=== PATIENT | female | born 1950 | race African-American/Black ===

== ENCOUNTER 2016-10-17 11:26 | Inpatient (IN) ==
[2016-10-17 11:49] LABS: BE 1.5 mmoll (-3.0-3.0); DRAW SITE R BRACHIAL; METHB 1.7 % (0.0-1.5); O2(CT) 5.7 mL/dL (15.0-23.0); SAMPLE BLOOD; SAO2 37.3 % (95.0-100.0); THB 11.2 g/dL (11.5-17.4)
[2016-10-17 11:54] LABS: MODALITY CANNULA
[2016-10-17 11:55] LABS: ALLEN TEST NO; BLOOD TYPE VENOUS; PCO2(98.6) 59 mmHg (35-45)
[2016-10-17 11:56] LABS: PO2(98.6) 24 mmHg (60-100)
[2016-10-17 11:57] LABS: MANUAL DIFF NEEDED? NO
[2016-10-17 12:00] LABS: BASO% 0.4 % (0.0-0.8); EOS# 0.29 X1000 (0.0-0.7); EOS% 2.1 % (0.0-10.0); HEMATOCRIT 34.7 % (37.0-47.0); HEMOGLOBIN 10.5 g/dL (12.0-16.0); IMM GRAN# 0.05 X1000 (0.0-0.04); IMM GRAN% 0.4 % (0.0-0.5); LYMPH# 2.44 X1000 (1.2-3.4); MCH 28.1 PG (27-31); MCHC 30.3 g/dL (33-37); MCV 92.8 FL (81-99); MONO# 1.37 X1000 (0.11-0.59); MONO% 10.1 % (1.7-9.3); MPV 10.5 FL (7.4-10.4); PLT 307 X1000 (130-400); RBC 3.74 XMIL (4.2-5.4)
[2016-10-17 12:25] LABS: ALBUMIN 3.2 g/dL (3.5-5.0); CALCIUM 9.1 mg/dL (8.8-10.2); POTASSIUM 4.3 mmol/L (3.5-5.1); TOTAL BILIRUBIN 0.5 mg/dL (0.20-1.00); TOTAL PROTEIN 7.1 g/dL (6.3-8.3)
[2016-10-17 12:25] LABS: URINE SOURCE CATH
--- NOTE | 2016-10-17 12:31 | Diag Imaging Result Document ---
PROCEDURE NAME: CHEST-PORTABLE - 10/17/2016 CHEST, SINGLE VIEW: INDICATION: Altered mental status. COMPARISON: 10/09/2016. FINDINGS: There has been a suboptimal inspiratory result with diminished lung volumes. There is stable scarring or platelike atelectasis within the mid lung zones. There is stable mild vascular congestion and evidence of previous granulomatous infection. Cannot exclude retrocardiac infiltrate due to large body habitus. IMPRESSION: Stable chest with cardiomegaly, vascular congestion, and platelike atelectasis versus scarring.
[2016-10-17 12:32] LABS: INR 1.39 (0.86-1.15); PROTIME 17.3 Seconds (12.1-15.5)
[2016-10-17 12:33] LABS: PTT PL 46.5 Seconds (22.6-43.9)
[2016-10-17 12:35] LABS: BILIRUBIN URINE 2+ (NEGATIVE); BLOOD URINE NEGATIVE (NEGATIVE); CLARITY CLEAR (CLEAR); COLOR AMBER; GLUCOSE URINE NEGATIVE (NEGATIVE); LEUKOCYTES URINE TRACE (NEGATIVE); NITRITE URINE NEGATIVE (NEGATIVE); PROTEIN URINE 2+(100 mg/dL) mg/dL (NEGATIVE); UROBILINOGEN URINE NORMAL
--- NOTE | 2016-10-17 12:35 | PROVIDER DOCUMENTATION ---
HPI-General Adult - General Chief Complaint: Low Blood Sugar Stated Complaint: AMS Time Seen by Provider: 10/17/16 12:15 Source: patient, family Allergies/Adverse Reactions: Patient Allergies Allergy/AdvReac Type Severity Reaction Status Date / Time No Known Allergies Allergy Verified 10/17/16 11:34 Home Medications: Allopurinol 300 mg PO DAILY 10/07/16 Benzonatate 200 mg PO TID PRN PRN 10/07/16 Bisoprolol Fumarate 10 mg PO DAILY 10/07/16 Carisoprodol 350 mg PO Q12H PRN PRN 10/07/16 Hydralazine [Apresoline] 25 mg PO TID 10/07/16 Insulin Glargine,Hum.rec.anlog [Lantus Solostar] 40 unit SQ HS 10/07/16 Losartan/Hydrochlorothiazide [Losartan-Hctz 100-12.5 mg Tab] 1 each PO DAILY Metformin [Glucophage] 500 mg PO BID CC 10/07/16 - History of Present Illness -Gen Adult Nature of Presenting Problems: Pt is 66 y/o F presents to the ED with altered mental status. Pt states she feels like she is fine. Pt's family member states she is not acting right. Pt states she is in no pain. Location of Pain/Injury: reports: none Pain Radiation: reports: no radiation Quality of Pain: reports: none Onset/Duration: reports: unsure Timing: reports: still present, intermittent Context/Activities at Onset: reports: light activity Modifying Factors: improves with: nothing Associated Symptoms: reports: denies symptoms Similar Symptoms Previously?: No Recently seen or treated by another doctor?: No - Diabetes Related Context Context: reports: low blood sugar, change in mental status - Sickle Cell Pain Related Context Sickle Cell Pain Location: reports: none Is this pain typical of prior episodes of crisis?: No Review of Systems - Adult - REVIEW OF SYSTEMS - ADULT Constitutional: denies: chills, fever Eyes: denies: blurred vision, double vision Ears, Nose, Mouth & Throat: denies: ear pain, nose pain, throat pain Cardiovascular: denies: chest pain, heart murmur, irregular heart rate Respiratory: denies: cough, shortness of breath, wheezing Gastrointestinal: reports: poor appetite. denies: abdominal pain, diarrhea, nausea, vomiting Genitourinary: denies: dysuria, hematuria Musculoskeletal: denies: bone pain, joint pain, neck pain Integumentary: denies: hives, itching Neurological: denies: dizziness/vertigo, headache/migraines Psychiatric: reports: no symptoms reported Endocrine: reports: no symptoms reported Hematologic/Lymphatic: reports: no symptoms reported Allergic/Immunologic: reports: no symptoms reported All Other Systems: Reviewed and Negative Past History - Adult - PAST MEDICAL HISTORY-ADULT Review of Records: reports: Nursing Assessment Review, Medications Reviewed, Social history reviewed & non-contributory. Major Childhood Illnesses: reports: denies history Cardiovascular: reports: HTN, hyperlipidemia Respiratory: reports: COPD, sleep apnea Gastrointestinal: reports: denies history Obstetrical/Gynecological: reports: denies history Genitourinary: reports: denies history Musculoskeletal: reports: denies history Neurological: reports: denies history Endocrine/Immune: reports: Diabetes Other Conditions: reports: cataract/glaucoma (glaucoma), skin disorder (skin disease) - PRIOR SURGERIES/PROCEDURES Surgical/Procedure History: reports: other (eye sugery) - IMMUNIZATION STATUS Childhood Immunizations: See Nurse Assessment Flu Vaccine: See Nurse Assessment - FAMILY HISTORY Family History: reviewed, not pertinent - SOCIAL HISTORY Smoking: quit less than 1 year, cigarettes Provider spent 3-5 mins advising pt. on dangers of tobacco.: Discussed manners to quit use, and f/u contacts for add'l counseling. Substance Use: denies Living Situation: family Physical Exam-General - PHYSICAL EXAM-ADULT Initial Vital Signs Reviewed: Yes - CONSTITUTIONAL General Appearance: alert, no apparent distress, slow to respond - EYES Eyes: PERRL/EOMI, pink conjunctivae - HEAD, EARS, NOSE, MOUTH & THROAT HENMT: normocephalic/atraumatic, moist mucous membranes, normal ENT inspection - NECK Neck: non-tender, full range of motion, supple, normal inspection - RESPIRATORY Respiratory: chest non-tender, lungs clear, accessory muscle use, increased rate - CARDIOVASCULAR Cardiovascular: normal peripheral pulses, regular rate, rhythm, no edema - GASTROINTESTINAL (ABDOMEN) Abdominal Exam: normal bowel sounds, non tender, soft - LYMPHATIC Lymphatic: no adenopathy - MUSCULOSKELETAL Back Exam: normal inspection, no CVA tenderness, no vertebral tenderness Extremity: normal range of motion, non-tender, normal gait - SKIN Integumentary: normal color, normal turgor, warm/dry - NEUROLOGIC Neurologic: passenger flagman II-XII nml as tested, grossly normal, no motor/sensory deficits - PSYCHIATRIC Psych/Mental Status: normal mood/affect, normal thought content, normal thought process, oriented x 3 Progress - PLAN OF CARE/RESULTS Progress/Plan/Lab Results: Laboratory Tests 10/17/16 10/17/16 10/17/16 11:37 11:55 11:55 WBC RBC Hgb Hct MCV MCH MCHC RDW Std Deviation Plt Count MPV Immature Gran % (Auto) Neut % (Auto) Lymph % (Auto) [place] % (Auto) Eos % (Auto) Baso % (Auto) Immature Gran # (Auto) Neut # Lymph # [place] # Eos # Baso # PT INR APTT (Factor Assay) Specimen Type VENOUS Sample Site R BRACHIAL pH 7.30 L pCO2 59 H* pO2 24 L* HCO3 24.7 Base Excess 1.5 Oxyhemoglobin 35.9 L* ABG O2 Sat (Calculated) 5.7 L ABG O2 Saturation 37.3 L ABG Carboxyhemoglobin 2.00 ABG Methemoglobin 1.7 H Eugene Test NO Total Hemoglobin 11.2 L Lactate 1.40 Blood Gas Modality CANNULA FiO2 % 28.0 Sodium 140 Potassium 4.3 Chloride 103 Carbon Dioxide 25 Anion Gap 11 BUN 30 H Creatinine 3.7 H Estimated GFR/1.73 m2 12 BUN/Creatinine Ratio 8 Glucose 76 Calculated Osmolality 284 Calcium 9.1 Total Bilirubin 0.50 AST 28 ALT 11 Alkaline Phosphatase 77 Troponin T Total Protein 7.1 Albumin 3.2 L Globulin 4.0 Albumin/Globulin Ratio 1.0 Plasma Lactate 1.3 Urine Source Urine Color Urine Clarity Urine pH Ur Specific Carrier Urine Protein Urine Ketones Urine Blood Urine Nitrite Urine Bilirubin Urine Urobilinogen Urine WBC Urine Glucose Plasma/Serum Ethyl Alc 10/17/16 10/17/16 10/17/16 11:55 11:55 11:55 WBC 13.57 H RBC 3.74 L Hgb 10.5 L Hct 34.7 L MCV 92.8 MCH 28.1 MCHC 30.3 L RDW Std Deviation 16.2 H Plt Count 307 MPV 10.5 H Immature Gran % (Auto) 0.4 Neut % (Auto) 69.0 Lymph % (Auto) 18.0 L [place] % (Auto) 10.1 H Eos % (Auto) 2.1 Baso % (Auto) 0.4 Immature Gran # (Auto) 0.05 H Neut # 9.36 H Lymph # 2.44 [place] # 1.37 H Eos # 0.29 Baso # 0.06 PT INR APTT (Factor Assay) Specimen Type Sample Site pH pCO2 pO2 HCO3 Base Excess Oxyhemoglobin ABG O2 Sat (Calculated) ABG O2 Saturation ABG Carboxyhemoglobin ABG Methemoglobin Eugene Test Total Hemoglobin Lactate Blood Gas Modality FiO2 % Sodium Potassium Chloride Carbon Dioxide Anion Gap BUN Creatinine Estimated GFR/1.73 m2 BUN/Creatinine Ratio Glucose Calculated Osmolality Calcium Total Bilirubin AST ALT Alkaline Phosphatase Troponin T 0.086 Total Protein Albumin Globulin Albumin/Globulin Ratio Plasma Lactate Urine Source Urine Color Urine Clarity Urine pH Ur Specific Carrier Urine Protein Urine Ketones Urine Blood Urine Nitrite Urine Bilirubin Urine Urobilinogen Urine WBC Urine Glucose Plasma/Serum Ethyl Alc 10/17/16 10/17/16 11:55 12:02 WBC RBC Hgb Hct MCV MCH MCHC RDW Std Deviation Plt Count MPV Immature Gran % (Auto) Neut % (Auto) Lymph % (Auto) [place] % (Auto) Eos % (Auto) Baso % (Auto) Immature Gran # (Auto) Neut # Lymph # [place] # Eos # Baso # PT 17.3 H INR 1.39 H APTT (Factor Assay) 46.5 H Specimen Type Sample Site pH pCO2 pO2 HCO3 Base Excess Oxyhemoglobin ABG O2 Sat (Calculated) ABG O2 Saturation ABG Carboxyhemoglobin ABG Methemoglobin Eugene Test Total Hemoglobin Lactate Blood Gas Modality FiO2 % Sodium Potassium Chloride Carbon Dioxide Anion Gap BUN Creatinine Estimated GFR/1.73 m2 BUN/Creatinine Ratio Glucose Calculated Osmolality Calcium Total Bilirubin AST ALT Alkaline Phosphatase Troponin T Total Protein Albumin Globulin Albumin/Globulin Ratio Plasma Lactate Urine Source CATH Urine Color PAZ Urine Clarity CLEAR Urine pH 5.0 Ur Specific Carrier 1.030 Urine Protein 2+(100 mg/dL) A Urine Ketones TRACE Urine Blood NEGATIVE Urine Nitrite NEGATIVE Urine Bilirubin 2+ A Urine Urobilinogen NORMAL Urine WBC TRACE A Urine Glucose NEGATIVE Plasma/Serum Ethyl Alc Orders Category Date Time Status Cardiac Monitoring DIRECTED Care 10/17/16 11:28 Active Finger Stick Blood Sugar (ED) DIRECTED Care 10/17/16 11:28 Active Oxygen Therapy- ED Nursing DIRECTED Care 10/17/16 11:28 Active Saline Loc NOW Care 10/17/16 11:28 Active CHEST-PORTABLE [RAD] Stat Exams 10/17/16 11:28 Draft ABG [RESP] Routine Lab 10/17/16 11:37 Completed ALCOHOL BLOOD Stat Lab 10/17/16 11:55 Completed CBC WITH ELECTRONIC DIFF [HEME] Stat Lab 10/17/16 11:55 Completed COMPREHENSIVE METABOLIC PANEL [CHEM] Stat Lab 10/17/16 11:55 Completed LACTATE, PLASMA [CHEM] Stat Lab 10/17/16 11:55 Completed [address]IME WITH INR PL [COAG] Stat Lab 10/17/16 11:[address] [COAG] Stat Lab 10/17/16 11:55 Completed TROPONIN T Stat Lab 10/17/16 11:[address] W/POSS RFLX CULT [URINALYSIS] Stat Lab 10/17/16 12:02 Results URINE DRUG SCREEN [address] Stat Lab 10/17/16 12:02 Received Pulse Oximetry Stat Oth 10/17/16 11:28 Active EKG [EKG] Stat Ther 10/17/16 11:28 Ordered Vital Signs - 24 hr 10/17/16 11:27 Temperature 101.9 F H Pulse Rate 83 Respiratory 18 Rate Blood Pressure 124/47 O2 Sat by Pulse 94 L Oximetry - EKG 1 Time of EKG reading by physician:: 11:51 EKG Read and Signed by:: Jacobo Walker EKG Interpretation (*Must complete 3 of following elements*): Abnormal Rate: 84 Rhythm: normal sinus rhythm Comments: possible anterior infarct, age undetermined - XRAY 1 XRAY: Bilateral XRAY Study: Chest Impression: Abnormal (platelike atelectasis versus scarring) XRAY Interpretation: stable chest with cardiomegaly; vascular congestion; - CONSULTS/PCP/HOSPITALIST Notification #1 *Consult/PCP/Hospitalist*: Dr. Rogers Time Discussed: 12:40 (Dr. Rogers accepted admit. ) Reason/Comments: Dr. Walker consulted with Dr Rogers about admit of Pt. Consult Disposition: Admit Departure - Departure Time of Disposition Order: 12:44 DIAGNOSIS: Pneumonia Qualifiers: Pneumonia type: due to unspecified organism Laterality: unspecified laterality Lung location: unspecified part of lung Qualified Code(s): J18.9 - Pneumonia, unspecified organism Fever Qualifiers: Fever type: other Qualified Code(s): R50.81 - Fever presenting with conditions classified elsewhere Diabetes Qualifiers: Diabetes mellitus type: other specified (including MARKUS) Diabetes mellitus complication status: with unspecified complications Diabetes mellitus detention insulin use: unspecified detention insulin use status Qualified Code(s): E13.8 - Other specified diabetes mellitus with unspecified complications DIAGNOSIS: (Ruled Out): 23-polyvalent pneumococcal polysaccharide vaccine indication of diabetes in patient 6 to 64 years of age Disposition: ADMITTED INPATIENT 09 Certified Medical Emergency: Emergent Condition: Stable Additional Instructions: ED Follow Up Instructions: You have been treated by a care provider in the Emergency Department. These instructions are being provided to you so you can have an understanding of how to care for yourself upon discharge. Upon discharge from the Emergency Department, you are responsible for making arrangements for follow-up care by a physician of your choice. Take all prescribed medications as directed. Return to the Emergency Department immediately for any new or worsening symptoms. You may call the Physician Referral phone number at [phone] to obtain a list of Physicians who are taking new patients. Referrals: Jadiel Anguiano MD [Primary Care Provider] - Attestation - Scribe Verification/Attestation Scribe:: Juany Eastman Acting as Scribe for:: Jacobo Walker Scribe documention review:: This chart was documented by a scribe and accurately reflects the service the provider performed and the decisions made by the provider.
[2016-10-17 12:37] LABS: UR AMPHETAMINES QUAL NONE DETECTED (NONE DETECT); UR BARBITUATES QUAL NONE DETECTED (NONE DETECT); UR BENZODIAZEPIN QUAL NONE DETECTED (NONE DETECT); UR CANNABINOIDS QUAL NONE DETECTED (NONE DETECT); UR COCAINE QUAL NONE DETECTED (NONE DETECT); UR MDMA QUAL NONE DETECTED (NONE DETECT); UR METHADONE QUAL NONE DETECTED (NONE DETECT); UR METHAMPHETAMINE QUAL PRESUMPTIVE POSITIVE (NONE DETECT); UR OPIATES QUAL NONE DETECTED (NONE DETECT); UR OXYCODONE QUAL NONE DETECTED (NONE DETECT); UR PCP QUAL NONE DETECTED (NONE DETECT); UR TCA QUAL NONE DETECTED (NONE DETECT)
[2016-10-17] MEDS ORDERED: CLINDAMYCIN IV ONE (12:43)
[2016-10-17 12:44] LABS: URINE CULTURE PL NEEDED? YES; URINE EPITHELIAL CELLS <10 /HPF (<10)
[2016-10-17] MEDS ORDERED: TYLENOL PO ONE (12:44)
[2016-10-17] MEDS ORDERED: TESSALON PO PRN (12:47)
--- NOTE | 2016-10-17 12:51 | EKG Report ---
Test Performed on : 10/17/2016 11:51:50 AM Test Reason : AMS Blood Pressure : / mmHG Vent. Rate : 084 BPM Atrial Rate : 084 BPM P-R Int : 162 ms QRS Dur : 082 ms QT Int : 384 ms P-R-T Axes : 021 -08 047 degrees QTc Int : 453 ms Normal sinus rhythm. Possible Anterior infarct , age undetermined Abnormal ECG When compared with ECG of 08-OCT-2016 04:59, premature atrial complexes. are no longer present Unconfirmed Result
[2016-10-17] MEDS ORDERED: CLINDAMYCIN 900 MG/NS 50 ML ONE (12:53)
[2016-10-17] MEDS ORDERED: CLINDAMYCIN 900 MG/NS 50 ML IV ONE (13:00)
[2016-10-17] MEDS ORDERED: APRESOLINE PO SCH (13:00)
[2016-10-17] MEDS: NS 1,000 ML IV SCH (14:54)
[2016-10-17] MEDS: HUMALOG DOSE (PARKWAY) SUBQ SCH (20:35)
[2016-10-17] MEDS: LANTUS INSULIN (PARKWAY) SUBQ SCH (20:36)
[2016-10-18] MEDS: NS 1,000 ML IV SCH ×3 (00:03→18:45)
[2016-10-18] MEDS ORDERED: D50W SYRINGE ONE (06:12)
[2016-10-18] MEDS ORDERED: D50W SYRINGE IV ONE ×2 (06:20→13:33)
[2016-10-18] MEDS: HUMALOG DOSE (PARKWAY) SUBQ SCH ×3 (06:22→19:46)
[2016-10-18 06:46] LABS: MANUAL DIFF NEEDED? NO
[2016-10-18 06:48] LABS: BASO% 0.4 % (0.0-0.8); EOS# 0.45 X1000 (0.0-0.7); EOS% 3.3 % (0.0-10.0); HEMATOCRIT 33.9 % (37.0-47.0); HEMOGLOBIN 9.9 g/dL (12.0-16.0); IMM GRAN# 0.05 X1000 (0.0-0.04); IMM GRAN% 0.4 % (0.0-0.5); LYMPH# 1.29 X1000 (1.2-3.4); LYMPH% 9.3 % (20.5-51.1); MCH 27.6 PG (27-31); MCHC 29.2 g/dL (33-37); MCV 94.4 FL (81-99); MONO# 1.08 X1000 (0.11-0.59); MONO% 7.8 % (1.7-9.3); MPV 10.9 FL (7.4-10.4); NEUT% 78.8 % (42.2-75.2); PLT 287 X1000 (130-400); RBC 3.59 XMIL (4.2-5.4)
[2016-10-18 07:11] LABS: CALCIUM 8.5 mg/dL (8.8-10.2); POTASSIUM 4.3 mmol/L (3.5-5.1)
--- NOTE | 2016-10-18 08:22 | HISTORY AND PHYSICAL ---
PRIMARY CARE PHYSICIAN: Dr. Anguiano CHIEF COMPLAINT: Altered mental status, family member stating she just was not acting right at home. HISTORY OF PRESENTING ILLNESS: This is a 66-year-old morbidly obese female who was admitted to this facility on 10/07/2016 through 10/10/2016 for a left lower lobe pneumonia, COPD exacerbation, acute kidney injury that was resolved at that time. She presents back to the emergency room today with family stating that she "was not acting right." When she arrived to the emergency room, she had a temperature of 101.9 degrees. White blood cell count was 13.57. She had a BUN of 30 with a creatinine of 3.7. When she was discharged from the hospital on 10/10/2016, she had a creatinine of 1.3. Urinalysis showed negative nitrites, trace of white blood cells, and 1+ bacteria, and so, she was admitted to the intensive care unit for further evaluation and treatment. PAST MEDICAL HISTORY: Hypertension, COPD, diabetes type 2, sleep apnea, glaucoma, and a recent left lower lobe pneumonia. PAST SURGICAL HISTORY: A right eye surgery. FAMILY HISTORY: Noncontributory. SOCIAL HISTORY: She currently lives with family. Denies any tobacco, alcohol, or illicit drug use. ALLERGIES: She has no known drug allergies. HOME MEDICATIONS: Allopurinol 300 mg p.o. daily. Bisoprolol fumarate 10 mg p.o. daily will be held. Cleocin 300 mg p.o. t.i.d. will be held. Losartan/hydrochlorothiazide 1 p.o. daily will be held. Glucophage 500 mg p.o. b.i.d. will be held. Reglan 10 mg p.o. before meals and at bedtime will be held. LABORATORY DATA: Showed a white blood cell count of 13.57, hemoglobin at 10.5, hematocrit 34.7, platelets 307,000. PT and INR of 17.3 and 1.39. ABG showed a pH of 7.3, pCO2 of 59, PO2 of 24, bicarbonate of 24.7. Sodium 140, potassium 4.3, chloride 103, CO2 of 25, BUN of 30, creatinine 3.7, glucose of 76. Plasma lactate was 1.3. Urinalysis showed negative nitrites, trace of white blood cells, and 1+ bacteria. Urine drug screen was presumptive positive for methamphetamines, and serum alcohol showed none detected. Chest x-ray today showed a stable chest with cardiomegaly, vascular congestion, and platelike atelectasis versus scarring. EKG showed normal sinus rhythm at 84. REVIEW OF SYSTEMS: The patient had a subjective fever. Denied any chills, blurred vision, dizziness, chest pain, coughing, shortness of breath. Denied any constipation, diarrhea, or burning or hurting with urination. PHYSICAL EXAMINATION: VITAL SIGNS: Showed a temperature of 101.9 degrees, pulse 83, respirations 18, blood pressure 124/47, saturating 94% on 2 liters via nasal cannula. GENERAL: This is a 66-year-old morbidly obese female who is lying in the bed and answers questions appropriately. HEENT: Normocephalic and atraumatic. Pupils are equal, round, reactive to light. Extraocular movements are intact. Oropharynx and nares are clear. NECK: Supple. LUNGS: Clear to auscultation bilaterally with equal lung expansion and chest wall movement. HEART: With regular rate and rhythm. No murmurs, rubs, or gallops. ABDOMEN: Soft, nontender, nondistended. Bowel sounds are present x4 quadrants. EXTREMITIES: No clubbing or cyanosis. The patient was noted to have some nonpitting edema to her left lower extremity. NEUROLOGICAL: The cranial nerves 2 through 12 appear grossly intact. ASSESSMENT: 1. Leukocytosis. 2. Fever. 3. Urinary tract infection. 4. Acute kidney injury. PLAN: She was admitted to the intensive care unit at [facility]. A Weston catheter was inserted, incentive spirometry, O2 per protocol, diabetic diet. Blood cultures x2 were obtained, and the results are pending, and urine culture is pending. She received clindamycin 900 mg IV x1 in the ER. We will place her on normal saline at 100 mL an hour, continue her Levaquin 500 mg p.o. daily. We will hold the rest of her home medications at this time. We will do pattern blood sugars with sliding scale insulin as needed. Recheck CBC and BMP in the a.m. media services coordinator was consulted to obtain rehab placement for this patient at family's request. Dictated by BRODIE Bowen for Michel Rogers MD
[2016-10-18] MEDS ORDERED: ZOFRAN IV PRN (08:39)
[2016-10-18] MEDS ORDERED: PROTONIX IV SCH (08:45)
[2016-10-18] MEDS ORDERED: SODIUM CHLORIDE 0.9% INJ SCH (08:45)
[2016-10-18] MEDS ORDERED: ROCEPHIN 1 GM/NS 50 ML IV SCH (08:45)
[2016-10-18] MEDS ORDERED: VANCOMYCIN IV PER PHARMACY MISC SCH (08:45)
[2016-10-18 09:00] LABS: BE -2.4 mmoll (-3.0-3.0); BLOOD TYPE ARTERIAL; METHB 1.2 % (0.0-1.5); O2(CT) 13.5 mL/dL (15.0-23.0); PO2(98.6) 76 mmHg (60-100); SAMPLE BLOOD; SAO2 97.5 % (95.0-100.0); THB 10.2 g/dL (11.5-17.4)
[2016-10-18] MEDS ORDERED: LEVAQUIN PO SCH (09:00)
[2016-10-18] MEDS ORDERED: ZYLOPRIM PO SCH ×2 (09:00)
[2016-10-18] MEDS ORDERED: LASIX IV SCH (09:00)
[2016-10-18] MEDS ORDERED: ZEBETA PO SCH (09:00)
[2016-10-18 09:11] LABS: DRAW SITE L BRACHIAL; pH(98.6) 7.26 (7.35-7.45)
[2016-10-18 09:12] LABS: ALLEN TEST YES; MODALITY CANNULA; PCO2(98.6) 56 mmHg (35-45)
[2016-10-18] MEDS ORDERED: VANCOMYCIN 2,000 MG in NS 500 ML IV ONE (09:30)
--- NOTE | 2016-10-18 11:50 | PROGRESS NOTE ---
DATE: 10/18/2016 SUBJECTIVE: The patient is nonverbal this morning. No family in the room. Staff notes that she has had a decreased urine output over the past 12 hours and has had an increase in her respiratory distress. PHYSICAL EXAMINATION: Vital Signs: Temperature 99 degrees. Pulse 88. Respiratory 28-33. BP 95/54 to 111/57. General: Patient is in moderate respiratory distress. She is tachypneic. HEENT: Normocephalic. Neck: Supple. CV: Regular rate. Chest: Greatly decreased breath sounds bilaterally. Positive moderate respiratory distress. Positive accessory muscle usage. Abdomen: Soft, obese. Extremities: No edema. Neurologic: Unable to assess. Patient does not respond to commands. DIAGNOSTIC DATA: WBCs 13. Hemoglobin and hematocrit 9 and 33. ABG with a pH of 7.2, pCO2 of 56, and creatinine 4.0. ASSESSMENT: 1. Acute renal failure. Serum creatinine is slightly worse than yesterday. 2. Acute respiratory acidosis. 3. Acute hypercapnic respiratory failure. 4. Leukocytosis. PLAN: Will continue patient in the ICU. Will place her on BiPAP. Will consult pulmonology. Continue antibiotics. She was given Lasix already as she is positive fluid status currently. We will add vancomycin as she has recently been in the hospital.
[2016-10-18] MEDS ORDERED: OFIRMEV 1000 MG/ISOTONIC SOLN 100 ML IV PRN (14:42)
[2016-10-18 17:23] LABS: CK INDEX 0.6 (0.0-2.5); CK-MB 3.25 ng/mL (0.0-5.0)
[2016-10-18 17:46] LABS: ALLEN TEST NO; BE -4.4 mmoll (-3.0-3.0); BLOOD TYPE ARTERIAL; DRAW SITE R BRACHIAL; METHB 1.8 % (0.0-1.5); O2(CT) 14.6 mL/dL (15.0-23.0); PO2(98.6) 220 mmHg (60-100); SAMPLE BLOOD; SAO2 100.1 % (95.0-100.0); THB 10.4 g/dL (11.5-17.4)
[2016-10-18 17:47] LABS: MODALITY NRB; PCO2(98.6) 64 mmHg (35-45); pH(98.6) 7.19 (7.35-7.45)
[2016-10-18] MEDS ORDERED: ZOSYN 2.25 GM/NS 50 ML IV ONE (18:02)
[2016-10-18] MEDS ORDERED: CORDARONE ONE (18:22)
[2016-10-18] MEDS ORDERED: D5W ONE (18:22)
[2016-10-18] MEDS ORDERED: NORCURON ONE (18:33)
[2016-10-18] MEDS ORDERED: QUELICIN ONE (18:34)
[2016-10-18] MEDS ORDERED: VERSED ONE (18:34)
[2016-10-18] MEDS ORDERED: AMIDATE ONE (18:34)
[2016-10-18] MEDS ORDERED: DIPRIVAN 1% 100 ML ONE (18:35)
[2016-10-18] MEDS ORDERED: SODIUM BICARBONATE 8.4% 150 MEQ in D5W 1,000 ML IV SCH (18:45)
[2016-10-18] MEDS ORDERED: DOPAMINE 400 MG/D5W 500 ML IV SCH (18:45)
[2016-10-18] MEDS ORDERED: LEVOPHED 8 MG in D5 1/2 NS 250 ML IV SCH ×4 (19:00)
[2016-10-18] MEDS ORDERED: NS 1,000 ML IV ONE (19:00)
[2016-10-18] MEDS: DIFLUCAN 100 MG/NS 50 ML IV SCH (19:19)
[2016-10-18 19:21] LABS: BASO% 0.4 % (0.0-0.8); EOS# 0.34 X1000 (0.0-0.7); EOS% 1.7 % (0.0-10.0); HEMATOCRIT 35.1 % (37.0-47.0); HEMOGLOBIN 10.3 g/dL (12.0-16.0); IMM GRAN# 0.21 X1000 (0.0-0.04); LYMPH# 3.67 X1000 (1.2-3.4); LYMPH% 18.2 % (20.5-51.1); MANUAL DIFF NEEDED? YES; MCHC 29.3 g/dL (33-37); MCV 95.4 FL (81-99); MONO# 1.18 X1000 (0.11-0.59); MONO% 5.9 % (1.7-9.3); MPV 10.5 FL (7.4-10.4); NEUT% 72.8 % (42.2-75.2); PLT 299 X1000 (130-400); RBC 3.68 XMIL (4.2-5.4)
[2016-10-18 19:35] LABS: MAGNESIUM 1.9 mg/dL (1.5-2.7); POTASSIUM 4.8 mmol/L (3.5-5.1)
[2016-10-18] MEDS ORDERED: NEO-SYNEPHRINE 50 MG in NS 250 ML IV SCH (19:45)
[2016-10-18] MEDS ORDERED: NS 1,000 ML ONE (20:01)
[2016-10-18 20:05] LABS: BANDS 1 % (0-1); EOS 2 % (1-10); LYMPHS 18 % (21-51); MONO 6 % (1-9)
[2016-10-18 20:26] LABS: ALLEN TEST YES; BE 0.1 mmoll (-3.0-3.0); BLOOD TYPE ARTERIAL; DRAW SITE L RADIAL; MODALITY VENTILATOR; PCO2(98.6) 34 mmHg (35-45); PO2(98.6) 189 mmHg (60-100); SAMPLE BLOOD; SRATE 16 BPM; TVOL 600 mL; pH(98.6) 7.45 (7.35-7.45)
[2016-10-18] MEDS: DIPRIVAN 1% 100 ML IV SCH (21:37)
[2016-10-18] MEDS ORDERED: ATROPINE SYRINGE ONE (22:38)
[2016-10-18] MEDS ORDERED: MAGNESIUM SULFATE ONE (22:38)
[2016-10-18] MEDS ORDERED: SODIUM BICARBONATE 8.4% ONE (22:38)
[2016-10-18] MEDS ORDERED: CALCIUM CHLORIDE SYRINGE ONE (22:38)
[2016-10-18] MEDS ORDERED: EPINEPHRINE SYRINGE ONE (22:38)
[2016-10-18 23:44] LABS: URINE MICRO REVIEW NEEDED? NO; URINE SOURCE CATH
[2016-10-18 23:54] LABS: BILIRUBIN URINE NEGATIVE (NEGATIVE); BLOOD URINE LARGE (NEGATIVE); COLOR ORANGE; GLUCOSE URINE NEGATIVE (NEGATIVE); LEUKOCYTES URINE LARGE (NEGATIVE); NITRITE URINE NEGATIVE (NEGATIVE); PH URINE 5.5; SP GRAVITY URINE 1.013; TURBIDITY URINE TURBID (CLEAR); UROBILINOGEN URINE NORMAL (NORMAL)
[2016-10-19] MEDS: DIPRIVAN 1% 100 ML IV SCH ×10 (00:29→22:43)
[2016-10-19] MEDS: D5 1/2 NS 1,000 ML IV SCH ×2 (00:31→06:47)
[2016-10-19] MEDS: HUMALOG DOSE (PARKWAY) SUBQ SCH (00:31)
[2016-10-19] MEDS: LANTUS INSULIN (PARKWAY) SUBQ SCH (00:35)
[2016-10-19 00:57] LABS: UR CREAT RANDOM 146.2 mg/dL (11-20)
[2016-10-19 01:45] LABS: PROTEIN URINE 70 mg/dL (NEGATIVE)
[2016-10-19 02:07] LABS: UR EPITHELIAL CELLS <10 /HPF (<10); URINE BACTERIA 2+ /HPF; URINE CULTURE NEEDED? YES; URINE RBC TNTC /HPF (<10)
[2016-10-19] MEDS ORDERED: DIPRIVAN 1% IV PRN (02:52)
[2016-10-19 05:39] LABS: ALLEN TEST YES; BE 4.8 mmoll (-3.0-3.0); BLOOD TYPE ARTERIAL; DRAW SITE R RADIAL; METHB 1.9 % (0.0-1.5); O2(CT) 13.7 mL/dL (15.0-23.0); PCO2(98.6) 31 mmHg (35-45); PO2(98.6) 329 mmHg (60-100); SAMPLE BLOOD; SAO2 100.3 % (95.0-100.0); SRATE 16 BPM; THB 9.4 g/dL (11.5-17.4); TVOL 600 mL; pH(98.6) 7.55 (7.35-7.45)
[2016-10-19 05:40] LABS: MODALITY VENTILATOR
[2016-10-19] MEDS: NS 1,000 ML IV SCH (06:46)
[2016-10-19] MEDS ORDERED: TESSALON PO PRN (07:18)
[2016-10-19] MEDS ORDERED: ZOFRAN IV PRN (07:19)
[2016-10-19] MEDS: HUMALOG SUBQ SCH ×4 (07:42→21:00)
[2016-10-19] MEDS: DIFLUCAN 100 MG/NS 50 ML IV SCH ×2 (07:44→20:07)
[2016-10-19] MEDS ORDERED: NS 1,000 ML IV SCH (08:00)
[2016-10-19 08:01] LABS: HEMATOCRIT 29.9 % (37.0-47.0); HEMOGLOBIN 9.1 g/dL (12.0-16.0); MCH 28.3 PG (27-31); MCHC 30.4 g/dL (33-37); MCV 92.9 FL (81-99); MPV 10.7 FL (7.4-10.4); RBC 3.22 XMIL (4.2-5.4)
[2016-10-19 08:12] LABS: INR 1.39; PROTIME 14.8 Seconds (9.2-11.7)
[2016-10-19] MEDS: ROCEPHIN 1 GM/NS 50 ML IV SCH (08:24)
[2016-10-19] MEDS: LASIX IV SCH (08:24)
[2016-10-19] MEDS: PROTONIX IV SCH (08:24)
[2016-10-19] MEDS: SODIUM CHLORIDE 0.9% INJ SCH (08:24)
[2016-10-19 08:31] LABS: ALBUMIN 2.1 g/dL (3.5-5.0); CALCIUM 8.4 mg/dL (8.8-10.2); MAGNESIUM 1.6 mg/dL (1.5-2.7); POTASSIUM 3.3 mmol/L (3.5-5.1); TOTAL BILIRUBIN 0.36 mg/dL (0.20-1.00); TOTAL PROTEIN 5.2 g/dL (6.3-8.3)
--- NOTE | 2016-10-19 08:42 | CONSULTATION ---
DATE OF CONSULTATION: 10/18/2016 ATTENDING PHYSICIAN: Michel Rogers MD REASON FOR CONSULTATION: Acute hypercapnic respiratory failure. PRIMARY CARE PHYSICIAN: Dr. Anguiano. CHIEF COMPLAINT: Mental status. HISTORY OF PRESENTING ILLNESS: Ms. Waters is a 66-year-old female who is familiar to me from a previous admission recently on 10/07/2016 and was discharged a few days later. During her last admission she was admitted for left lower lobe pneumonia and also was noted to have acute kidney injury along with acute on chronic hypercapnic respiratory failure. She was treated with antibiotics and was discharged home. As per Dr. Rogers, the creatinine on discharge was 3.7. She is brought in here with family members who say she has been confused. Apparently the patient has been lethargic and had poor appetite and was unable to eat as per the daughter. Daughter had visited her a few times since the discharge and had attempted to feed her and ambulate her. She has been minimally ambulatory since the discharge it. In the emergency room patient was evaluated and noted to have acute worsening of renal failure along with altered mental status with respiratory distress. She was admitted to ICU for closer monitoring. ALLERGIES: No known drug allergies. PAST MEDICAL HISTORY: COPD, obstructive sleep apnea of unknown severity, hypertension and glaucoma. SURGICAL HISTORY: Right eye surgery. FAMILY HISTORY: Noncontributory. SOCIAL HISTORY: She currently lives with family. History of smoking in the past. There is questionable history of illicit drug use. HOME MEDICATIONS: The patient is on allopurinol, The patient bisoprolol, Glucophage, Reglan, Cleocin, losartan and hydrochlorothiazide. DIAGNOSTIC DATA: White count 13.57, hemoglobin 10, hematocrit 34, platelets 307 ,000. PT was 79, INR 1.3. ABGs on admission were 7.30, pCO2 59, pO2 24, bicarb of 24. Electrolytes within normal limits except for creatinine was close to 4, BUN 30. Lactic acid was 30. Urinalysis: Positive nitrates. Chest x-ray showed vascular congestion and plate-like atelectasis. Repeat ABGs showed pH 7.26, pCO2 56, pO2 76, bicarb 23 on nasal cannula 2 L. PHYSICAL EXAMINATION: Vitals: Temperature 101.9 degrees T-max, and currently 99.8, pulse 83, respiratory rate 18, blood pressure 124/43. Oxygen saturation is 92-94% on 4 L currently on face mask. General: Patient is acutely ill appearing with moderate respiratory distress. Head and Neck: Normocephalic, atraumatic. Neck is supple. Trachea not deviated. Oral mucosa extremely dry. Lungs: Minimal crackles. Poor air entry bilaterally. Heart: S1 and S2 heard. Abdomen: Soft. Extremities: No edema. VEGETABLE TIER: Patient intermittently opens here eyes. Does not follow commands. ASSESSMENT: 1. Acute on chronic hypoxic hypercapnic respiratory failure. 2. Acute kidney injury with history of chronic kidney disease. 3. Altered mental status, likely multifactorial. 4. Obstructive sleep apnea. 5. Urinary tract infection with sepsis. PLAN: 1. Acute on chronic hypoxic hypercapnic respiratory failure. The x-ray does not reveal any acute pneumonia at this point. Recommend repeat ABGs as soon as possible since I believe that her respiratory status has deteriorated since the morning ABGs. Patient has been on nasal cannula. Recommend BiPAP. Patient is waiting to be transferred to [facility] in a few minutes. Discussed with transport staff about using BiPAP en route. Patient might most likely need intubation on arrival in [facility]. Continue bronchodilators. 2. Acute kidney injury on CKD management as per Nephrology. Gentle hydration with IV fluids and treatment of the underlying sepsis 3. AMS secondary to worsening hypercapnia and worsening renal function. 4. Recommend BiPAP and repeat ABGs. Possible intubation if respiratory status continues to worsen. 5. Obstructive sleep apnea. Management with BiPAP or mechanical ventilation.for now.cs. Recommend repeat blood cultures and follow urine cultures. 7. Prognosis is guarded. 8. Please note, the patient was seen is around 4:30 p.m. [facility]
[2016-10-19 08:43] LABS: PTT 41.3 Seconds (22.0-36.0)
--- NOTE | 2016-10-19 08:50 | Diag Imaging Result Document ---
PROCEDURE NAME: CHEST/ABD TUBE PLACEMENT - 10/18/2016 PORTABLE EXAM FOR NASOGASTRIC TUBE PLACEMENT: FINDINGS: The distal end of the nasogastric tube is at the expected location of the mid stomach. IMPRESSION: Nasogastric tube in mid stomach.
--- NOTE | 2016-10-19 09:42 | Diag Imaging Result Document ---
PROCEDURE NAME: CHEST-PORTABLE - 10/18/2016 PORTABLE CHEST: Compared with 10/17/2016. FINDINGS: There has been insertion of an endotracheal tube with its tip approximately 2.7 cm above the bambi. Heart size appears mildly enlarged and decreased compared to previous exam. There are ill-defined mild basilar opacities. There is no large pleural effusion or pneumothorax identified. IMPRESSION: Tip of endotracheal tube approximately 2.7 cm above the bambi. Ill-defined mild basilar opacities.
--- NOTE | 2016-10-19 10:11 | PROGRESS NOTE ---
DATE: 10/19/2016 SUBJECTIVE: We were able to turn off of Levophed earlier this morning. She is in sinus rhythm. Blood pressure is doing much better. OBJECTIVE: Vital signs: Temp 96.8 degrees, pulse 55, respirations 14, blood pressure 115/66. Lungs: Clear in all lung morin. Cardiovascular: Regular rhythm and rate without murmur or S3. Abdomen: Soft. Skin: Warm and dry. Intake and output: Good urine output, over 4 L. LAB: White count 18,270, hematocrit 29, platelet count 237,000. Blood sugar 82, 174, 382. Reviewed electrolytes from yesterday. Repeat some more lab this morning. I am going to check her thyroid as well. Troponin was 0.179. CPK was 559 yesterday. Will repeat those as well this morning. ASSESSMENT AND PLAN: Presented with lethargy, metabolic acidosis, elevated white count. Has been treated for a urinary tract infection but appeared to have sepsis. She coded last night and we had to intubate her. She was hypoxic with elevated CO2. We were able to intubate; it was a difficult intubation. She required chest compressions for a short time. Give some epinephrine and bicarb. We have her on broad-spectrum antibiotics. She has multiple areas in the intertriginous areas of her abdomen that the skin looks like she has a fungal irritation and strong odor. Her left foot is tender and sore. It seems to be warm to touch. We will check a uric acid level. May need to get vascular studies of the left leg. It would be nice to get an echocardiogram and look at her left ventricular function. We will ask cardiology to kind of help with the elevation of the troponin and CPK. Pulmonary is involved as well.
[2016-10-19] MEDS: DUONEB (A & A) INH SCH ×4 (11:38→23:33)
--- NOTE | 2016-10-19 16:31 | CONSULTATION ---
DATE OF CONSULTATION: 10/19/2016 Thank you very much for asking me to see this very unfortunate 66-year-old, . Pleased to assist in her care. DIAGNOSIS: 1. Respiratory failure, possibly as a consequence of sleep apnea, aspiration, possibly also metabolic delirium, including probable crystal meth abuse. 2. Respiratory failure. Contributed also by sleep apnea. 3. Left ventricular dysfunction. 4. Persistence of left lower lobe aspiration pneumonia. 5. Respiratory failure secondary to above. 6. Diabetes mellitus. RECOMMENDATIONS: She will be mechanically ventilated and will give her Proventil and Atrovent, bronchodilators, broad-spectrum antibiotics will be delivered as well as hydration. We will try to give her hygienic measures on her skin as well as IV fluid resuscitation and will follow closely along with you. HISTORY: This very unfortunate 66-year-old female, female, presents to the hospital last evening after transfer from [place] because of delirium. She was admitted to the ICU with respiratory distress requiring intubation and mechanical ventilation and I am now consulted to assist in her care. REVIEW OF SYSTEMS: Except for the features mentioned above are negative for weight loss, night sweats, weakness or anorexia. No ENT symptoms of odynophagia, dysphagia, epistaxis or painful swallowing. No eye symptoms of blindness, blurring or diplopia. No other cardiac or pulmonary symptoms other than mentioned. No nausea, vomiting, constipation, diarrhea, no hemobilia, no acute dysuria, no joint or muscle pain, stiffness, swelling, no skin rashes, itching, bruises, no seizures, loss of consciousness, paralysis. Except for the features mentioned above, all other symptoms on the review of systems are negative. FAMILY HISTORY: Positive for ischemic heart disease as well as diabetes and hypertension. SOCIALLY: She lives with her family. The family denies any illicit drug use although there is a positive urine drug screen. PAST MEDICAL HISTORY: Positive for hypertension, diabetes, sleep apnea, and a recent admission for pneumonia. HOME MEDICATIONS: Allopurinol 300 mg a day. Reglan 10 mg at bedtime. Glucophage 500 mg p.o. b.i.d. Cleocin 300 mg p.o. t.i.d. Losartan/hydrochlorothiazide 50/25 once a day. Bisoprolol 10 mg p.o. b.i.d. ALLERGIES: None. PHYSICAL EXAMINATION: Vital signs: Blood pressure of 110/60 with a pulse of 100, respirations of 18, temperature 98.5 degrees. HEENT: Reveals no thyromegaly or adenopathy. Pupils are equal and reactive. Extraocular muscles are intact. She is nonicteric. Cardiac: Reveals a regular rhythm without an appreciable murmur. Chest: Reveals bilateral mechanically generated breath sounds with some prolongation of the expiratory phase. There are symmetrical excursions. Cardiac: Reveals a regular rhythm without an appreciable murmur. The scan reveals ecchymoses as well as erythematous rash. There is alberto in multiple skin folds the follow. LABORATORY ASSESSMENT/RADIOLOGY: Neurologically she moves all 4 to pain, but has no purposeful movements. The chest radiograph shows an ET tube, NG tube in position. There is possibly an infiltrate in the left lower lung. White count 18,200 with a hemoglobin 9.1, hematocrit 29.9, platelets of 237,000. INR is 1.3. The ABG shows a 7.55 pH with a CO2 of 31, BUN 329. The ventilator settings are assist-control 16, 100% 600 tidal volume 5 of PEEP. Sodium is 140, potassium 3.3, chloride 102, CO2 26, BUN of 36, creatinine 3.8, and CO2 26. The urine drug screen is positive for methamphetamines. The urine has 10-20 white blood cells. [facility]
--- NOTE | 2016-10-19 16:34 | ECHO REPORT ---
ORDER DATE: 10/19/2016 ECHOCARDIOGRAPHIC MEASUREMENTS: 1. Interventricular septum 1.3. 2. Left ventricular posterior wall 1.4. 3. Diastolic diameter 4.8. 4. Left atrium 4.5. 5. Aorta 3.2. SUMMARY OF 2-DIMENSIONAL IMAGIN. Normal left ventricular cavity size. Estimated ejection fraction of 60%. There is mild septal hypokinesis. Mild decrease in LV function from ejection fraction by echocardiogram on 10/07/2016. 2. Aortic valve leaflets were trileaflet. 3. Pulmonic valve was normal. 4. There was dense mitral annular calcification. Mitral valve leaflets were opening normally. 5. Peak velocity across the aortic valve less than 2 m/sec. There is no aortic stenosis or regurgitation. 6. There is trace pulmonary regurgitation. 7. There is tricuspid regurgitation. Peak velocity across the tricuspid valve was 3.2 m/sec. Pulmonary artery systolic pressure of 49-50 mmHg. 8. There is no pericardial effusion. 9. There was moderate to severe mitral annular calcification. In addition, there was a mobile mass attached to the posterior part of the mitral annular calcification. This could represent a vegetation versus mobile calcific mass, would recommend clinical correlation. 10. There is pulmonary arterial hypertension. 11. Technically suboptimal study.
--- NOTE | 2016-10-19 18:30 | Diag Imaging Result Document ---
PROCEDURE NAME: US RENAL 2 (RETROPER) COMPLETE - 10/19/2016 PORTABLE BILATERAL RENAL ULTRASOUND: FINDINGS: The kidneys appear normal in size bilaterally. There are multiple right renal cysts, the largest of which measures 3.2 cm. There is no solid renal mass identified. There is no hydronephrosis seen. There is no discrete renal stone identified. The urinary bladder is nondistended and is not evaluated. IMPRESSION: Multiple right renal cysts measuring up to 3.2 cm. No other visible renal abnormality. No hydronephrosis.
--- NOTE | 2016-10-19 19:29 | CONSULTATION ---
DATE OF CONSULTATION: 10/19/2016 REASON FOR CONSULTATION: Acute kidney injury. HISTORY OF PRESENT ILLNESS: Ms Waters is a 66-year-old black female who was recently hospitalized with pneumonia and acute kidney injury. She went home with a creatinine of 3.7 and returned to the hospital lethargic, confused, unable to eat. She had declining mental status and respiratory distress so she was admitted to the hospital in the ICU. On presentation her creatinine was 3.7. It was 1.3 at the time of discharge on the . At the time of admission, she was treated with pulmonary toilet, BiPAP, empiric broad-spectrum antibiotics. She was given gentle IV fluids to address her kidney dysfunction. Unfortunately, she suffered a cardiopulmonary arrest last evening, required intubation, chest compressions, etc. Since that time, she has been minimally responsive on the ventilator. PAST MEDICAL HISTORY: As above. She also has a history of obstructive sleep apnea, hypertension, glaucoma, diabetes and gout. HOME MEDICATIONS: Include allopurinol, bisoprolol, Glucophage, metoclopramide, Cleocin, losartan, hydrochlorothiazide. ALLERGIES: NONE. SOCIAL HISTORY: The admit note and initial urine drug screens imply amphetamine use. REVIEW OF SYSTEMS: Not obtainable. PHYSICAL EXAMINATION: Vital Signs: Blood pressure 110/59, heart rate 51, respirations 10, afebrile. Intake 5 L, output 500 mL. General: Middle-aged woman, sedated. She responds to tactile stimuli but not verbal. No acute distress. Skin: Warm and dry. She has intertrigo. There is mild erythema on the left foot. HEENT: Pupils. Right is eccentrically dilated. Left is constricted and round. Conjunctivae are pink. Oropharynx is dry. Neck: Supple. Neck veins are not visible. Heart: Regular, mildly bradycardic with no gallops or murmurs. Lungs: Have equal breath sounds. No crackles. Abdomen: Soft, nontender. Bowel sounds present but diminished. Extremities: Have edema in the right forearm and hand and the left foot. No clubbing or cyanosis. Neurologic Exam: Grossly nonfocal. Toes are downgoing. LABORATORY DATA: Sodium 140, potassium 3.3, chloride 102, bicarbonate 26, BUN 36, creatinine 3.8, hemoglobin 10.1. Urinalysis with 1 to 2+ protein, large blood, large leukocytes, njq-devtmpec-ar- count red cells and die-tkkgfsdb-zo-count white cells. FENa is greater than 1%. IMPRESSION: Acute kidney injury: Likely acute tubular necrosis. Acute injury in the context of poor glomerular autoregulation and she recovered from recent acute injury. Her BUN and creatinine are slightly better today but she is in marked positive fluid balance. Again, most likely acute tubular necrosis and not prerenal. As such, I will decrease her IV fluids today. Continue to monitor labs on a daily basis. She had no imaging so we will perform renal ultrasound in the morning. I have reviewed her medications and no changes are required at this time vis-a-vis her renal function.
[2016-10-19] MEDS: LANTUS SUBQ SCH (20:08)
[2016-10-20] MEDS: DIPRIVAN 1% 100 ML IV SCH ×9 (01:06→23:50)
[2016-10-20] MEDS: DUONEB (A & A) INH SCH ×6 (03:33→23:30)
[2016-10-20 05:11] LABS: ALLEN TEST YES; BLOOD TYPE ARTERIAL; DRAW SITE R RADIAL; METHB 1.4 % (0.0-1.5); O2(CT) 18.3 mL/dL (15.0-23.0); PCO2(98.6) 48 mmHg (35-45); PO2(98.6) 89 mmHg (60-100); SAMPLE BLOOD; SAO2 98.4 % (95.0-100.0); SRATE 10 BPM; THB 13.7 g/dL (11.5-17.4); TVOL 600 mL; pH(98.6) 7.36 (7.35-7.45)
[2016-10-20 05:12] LABS: MODALITY VENTILATOR
[2016-10-20 05:49] LABS: MANUAL DIFF NEEDED? NO
[2016-10-20 05:59] LABS: BASO% 0.4 % (0.0-0.8); EOS# 0.74 X1000 (0.0-0.7); EOS% 4.8 % (0.0-10.0); HEMATOCRIT 29.3 % (37.0-47.0); HEMOGLOBIN 9.1 g/dL (12.0-16.0); IMM GRAN# 0.07 X1000 (0.0-0.04); IMM GRAN% 0.5 % (0.0-0.5); LYMPH% 7.2 % (20.5-51.1); MCH 27.9 PG (27-31); MCHC 31.1 g/dL (33-37); MCV 89.9 FL (81-99); MONO# 0.79 X1000 (0.11-0.59); MONO% 5.1 % (1.7-9.3); MPV 11.2 FL (7.4-10.4); PLT 232 X1000 (130-400); RBC 3.26 XMIL (4.2-5.4)
[2016-10-20 06:18] LABS: CALCIUM 8.3 mg/dL (8.8-10.2); POTASSIUM 3.1 mmol/L (3.5-5.1)
[2016-10-20] MEDS: HUMALOG SUBQ SCH ×4 (06:40→20:03)
--- NOTE | 2016-10-20 07:49 | PROGRESS NOTE ---
DATE: 10/20/2016 SUBJECTIVE: She remains sedated on the ventilator. She is receiving Diprivan. OBJECTIVE: Vital Signs: Blood pressure 112/60, heart rate 62, respirations 10, afebrile. Intake 1.8 L. Output 1.5 L. General: On physical exam, sedated as above. HEENT: Conjunctivae are not examined. Oropharynx is moist. Neck: Neck veins are not visible. Heart: Regular, bradycardic. No gallops or murmurs. Lungs: Have equal breath sounds. No crackles or wheezes. Abdomen: Soft, obese and nontender. Bowel sounds are present. Extremities: Have 1+ edema especially in the right upper extremity. No clubbing or cyanosis. LABORATORY DATA: Sodium 144, potassium 3.1, chloride 104, bicarbonate 25, BUN 33, creatinine 3.3, hemoglobin 9.1. PH 7.36, pCO2 48, pO2 of 89. IMPRESSION: 1. Acute kidney injury. Likely acute tubular necrosis. Her urine output has been acceptable and her creatinine and BUN are falling. No new interventions today. 2. Electrolytes are acceptable. 3. Acid-base acceptable. She does have mild CO2 retention, but her overall pH is normal.
[2016-10-20] MEDS: PROTONIX IV SCH (08:02)
[2016-10-20] MEDS: SODIUM CHLORIDE 0.9% INJ SCH (08:02)
[2016-10-20] MEDS: DIFLUCAN 100 MG/NS 50 ML IV SCH ×2 (08:02→20:24)
[2016-10-20] MEDS: LASIX IV SCH (08:02)
[2016-10-20] MEDS: ROCEPHIN 1 GM/NS 50 ML IV SCH (08:05)
--- NOTE | 2016-10-20 08:24 | Diag Imaging Result Document ---
PROCEDURE NAME: CHEST-PORTABLE - 10/20/2016 AP PORTABLE CHEST ERECT: TIME: 0520 hours. FINDINGS: There is an endotracheal tube with its tip slightly below the thoracic inlet and an NG tube which passes below the diaphragm. There is cardiomegaly. The inspiration is suboptimal. Overall, considering differences in technique and inspiration there has been no significant change since 10/19/2016. IMPRESSION: Cardiomegaly.
--- NOTE | 2016-10-20 09:34 | Diag Imaging Result Document ---
PROCEDURE NAME: CHEST-1 VIEW - 10/19/2016 PORTABLE CHEST, 0435 HOURS: Compared with 10/18/2016. FINDINGS: Endotracheal tube and nasogastric tube remain in place. Heart size appears borderline enlarged. There are ill-defined basilar opacities which appear grossly stable. There is no large pleural effusion or pneumothorax identified. IMPRESSION: Stable exam compared to prior. Ill-defined basilar opacities.
--- NOTE | 2016-10-20 10:31 | PROGRESS NOTE ---
DATE: 10/20/2016 SUBJECTIVE: She is on the ventilator and sedated. She does move her feet and hands. Appears comfortable at this time, although under sedation. Her skin is warm and dry. Blood pressure is doing better. PHYSICAL EXAMINATION: Vital Signs: Blood pressure 130/65, pulse 65, respirations 18, afebrile, temperature 96.8 degrees. Lungs: Are clear in all lung morin. Cardiovascular Examination: Regular rhythm and rate without murmur or S3. Abdomen: Soft. Skin: Warm and dry. Is and Os: Urine output 600 mL. LAB: From this morning, white count 15,370, hematocrit is 29, platelet count 232,000. Sodium 144, potassium 3.1, chloride 104, bicarb 25, BUN 33, creatinine 3.3, blood sugars 113, 70, and 77. Chest x-ray from this morning, cardiomegaly, endotracheal tube and its tip is slightly below the thoracic inlet, and a nasogastric tube which passes below the diaphragm. There is cardiomegaly. Renal ultrasound done yesterday, multiple right renal cysts measuring 3.2 cm. No visible renal abnormality. No hydronephrosis. Appreciate pulmonary and nephrology help. Echocardiogram done yesterday. Normal left ventricle, ejection fraction 60%. Mild decreased left ventricular function, ejection fraction by echocardiogram that was done on 10/07/2016. Aortic valve normal. No valvular dysfunction. Pulmonic pressure 49-50 mmHg. There is moderate to severe mitral annular calcification. In addition, there is a mobile mass attached to the posterior part of the mitral annular calcification. This could represent a vegetation versus mobile calcific mass which we recommend clinical correlation. ASSESSMENT AND PLAN: 1. Presented with sepsis, not sure the source. Questionable vegetation on echocardiogram. We will ask infectious disease to follow. We may need to get an esophageal echocardiogram when able. Continue present broad-spectrum antibiotics. Clinically appears improved as far as her blood pressure. 2. Respiratory failure, hypoxia, and acidosis. On the ventilator. Good air and gas exchange at this time. 3. Some skin rash that looks mainly fungal, irritation around the intertriginous areas. Continue to try and keep it clean and dry. I did put her on an antifungal. I do not know if we need to continue that. Await cultures. 4. Acute kidney injury. Suspect acute tubular necrosis. Watch her volume. Creatinine and BUN are falling so we will continue to watch. Her electrolytes and acid base appear to be stable and acidosis seems to be improving. 5. Review of orders. She is on vancomycin and ceftriaxone. We had been giving her some clindamycin. We gave her a couple of does of clindamycin. I think I will change her ceftriaxone to Zosyn to cover a little more anaerobe.
[2016-10-20] MEDS: ZOSYN 3.375 GM/NS 50 ML IV SCH ×3 (10:36→20:32)
[2016-10-20] MEDS: LOVENOX SUBQ SCH (14:07)
--- NOTE | 2016-10-20 15:21 | HISTORY AND PHYSICAL ---
DOCTOR: Dr. Jadiel Anguiano. HISTORY OF PRESENT ILLNESS: She has altered mental status. She came in. Family states she was not acting right at home, 66-year-old, black female admitted facility 10/07/2016 through 10/10/2016 for left lower lobe pneumonia, COPD exacerbation, acute kidney injury resolved at that time. She presented back to the emergency room on 10/17/2016 stating that she was not acting right and they arrived in the emergency room. Temperature was 100.9 degrees. White blood cell count was PAST MEDICAL HISTORY: Hypertension, COPD, diabetes mellitus type 2, sleep apnea, glaucoma, recent left lower lobe pneumonia hospitalist hospitalized at [place]. PAST SURGICAL HISTORY: Right eye surgery. FAMILY HISTORY: Noncontributory. SOCIAL HISTORY: Currently lives with family. Denies any tobacco, alcohol or illicit drug use. ALLERGIES: NO KNOWN DRUG ALLERGIES. HOME MEDICATIONS: Allopurinol 300 mg a day, bisoprolol, fumarate 10 mg daily which was held, Cleocin 300 mg t.i.d. which was held, losartan/hydrochlorothiazide 1 a day, we held Glucophage 500 mg b.i.d., Reglan 10 mg before meals and bedtime held. REVIEW OF SYSTEMS: Unable to elicit but they elicited on arrival to a degree, she was confused. EXAM: Vital signs: Here in the ICU she has got 100% rebreather, temperature was 101.6 degrees, pulse 80, respirations 31, blood pressure 100/57. HEENT: Pupils are equal, round, reactive. Lungs: Clear, there is some scattered rhonchi throughout but she is moving air in all lung morin. Cardiovascular: Regular rhythm and rate without murmurs or S3. Abdomen: Soft, nontender, nondistended. Skin: Warm and dry. Urine output by report she has had 1150 out. LAB: On admission white count 13,570 today, this morning was 13,840, hematocrit 34, platelet count 287,000. Sodium 140, potassium 4.3, chloride 104, BUN 34, creatinine 4.0, blood sugar 150, 134 and is a 43 and a 96, CPK was 559, troponin was 0.179 which is little high. ASSESSMENT AND PLAN: 1. Altered mental status, lethargy, leukocytosis, fever, suspect underlying urine tract infection, recently treated with pneumonia and acute kidney injury. I will cover with broad- spectrum antibiotics cover for possible sepsis. I think we need to check blood gases and see where we are. Recently we had 1 at 5 o'clock, pH was 7.19, pCO2 64, PO2 was 220, O2 saturation was 100% this is on 100% FiO2. Looking at her lab bicarb was 24, serum creatinine 4.0. 2. Acute kidney injury, it could be acute tubular necrosis. Will go and give her some volume and see if that will help, looking back to see if we have done an echocardiogram looks like 1 was done on 10/07/2016, excellent left ventricular function. She has heavy calcification mitral annulus. No mitral regurgitation so should be able to handle volume and blood pressure I think would benefit as well. Will place Weston catheter, give her normal saline running in right now at 150 mL an hour. 3. History of diabetes mellitus. Check pattern sugars. Continue to follow and try to control. 4. Morbid obesity. 5. Suspect there is some obstructive apnea on top of chronic obstructive pulmonary disease. 6. Lethargy, altered mental status. Note there was drug screen presumptive positive for methamphetamines yesterday will .
[2016-10-20] MEDS: LANTUS SUBQ SCH (20:26)
[2016-10-20] MEDS: VANCOMYCIN 1,500 MG in NS 250 ML IV SCH (20:26)
[2016-10-20] MEDS ORDERED: VANCOMYCIN 1,500 MG in NS 250 ML IV SCH (21:00)
--- NOTE | 2016-10-20 21:41 | CONSULTATION ---
DATE OF CONSULTATION: 10/20/2016 CONCLUSION: Patient is intubated now. She appears to have a bibasilar pneumonia. Also both groin areas appear to be infected and have cellulitis. RECOMMENDATIONS: I agree with the patient's current antimicrobial therapy started by Dr. Woo including vancomycin, Zosyn and fluconazole. I have ordered a sputum gram stain and culture and I have obtained a culture from the patient's left groin. DISCUSSION: The patient is unable provide a history. She is intubated. No family member is present. Patient was initially admitted to [place] with a left lower lobe pneumonia and COPD exacerbation. She was eventually discharged and came back to the emergency room. There she was found to be febrile. She had a white count of 13,570, a creatinine of 3.7. She currently is in intensive care unit. She is getting pressors. She is intubated and getting mechanical ventilation. Her CBC shows a white count of 15,370, hemoglobin 9.1, and platelet count 232,000. Patient's blood gases show a pH of 7.36, a PO2 of 89, a pCO2 of 48. The patient's creatinine is 3.3 and the GFR is 17. Blood and urine cultures thus far are negative. The patient's liver function studies were normal except for an AST of 95. Chest x-ray shows cardiomegaly and bibasilar opacities. PAST MEDICAL HISTORY: Positive for hypertension, COPD, diabetes type 2, sleep apnea, glaucoma. INFECTIOUS DISEASE HISTORY: Positive for recent left lower lobe pneumonia. PAST SURGICAL HISTORY: Positive for surgery on her right eye. FAMILY HISTORY: Said to be noncontributory. SOCIAL HISTORY: The patient lives with family. She does not smoke cigarettes, drink alcoholic beverages or abuse drugs. ALLERGIES: SHE HAS NO KNOWN DRUG ALLERGIES. HOME MEDICATIONS: Include allopurinol, bisoprolol, Cleocin, losartan/hydrochlorothiazide, Glucophage, Reglan. PHYSICAL EXAMINATION: Vital Signs: Temperature is 97 degrees, pulse respirations 20, blood pressure 83/44. Generally: This is an ill-appearing, middle-aged female. She is intubated. She is obtunded. Head eyes, ears, nose, and throat: No drainage noted from the nose or ears. Neck: No meningismus. Thorax: Appeared to have an increased AP diameter of the chest. Lungs: Clear to auscultation. Cardiovascular: Regular heart rate. Abdomen: Soft and nontender. Integument: In the groin area there was a clear to purulent fluid that had an odor to it. There were also small white particulate particles in both groin areas. Neurologic: She is sedated and she did not respond to verbal stimuli. Thank you for the consult.
[2016-10-21] MEDS: DIPRIVAN 1% 100 ML IV SCH ×2 (02:20→05:14)
[2016-10-21] MEDS: DUONEB (A & A) INH SCH ×6 (02:57→22:41)
[2016-10-21] MEDS: ZOSYN 3.375 GM/NS 50 ML IV SCH ×4 (03:07→20:45)
[2016-10-21 04:27] LABS: ALLEN TEST YES; BE 0.9 mmoll (-3.0-3.0); BLOOD TYPE ARTERIAL; DRAW SITE R RADIAL; PO2(98.6) 87 mmHg (60-100); SAMPLE BLOOD; SRATE 10 BPM; TVOL 600 mL; pH(98.6) 7.34 (7.35-7.45)
[2016-10-21 04:28] LABS: MODALITY VENTILATOR; PCO2(98.6) 51 mmHg (35-45)
[2016-10-21 06:10] LABS: BASO% 0.3 % (0.0-0.8); EOS% 4.9 % (0.0-10.0); HEMATOCRIT 28.1 % (37.0-47.0); HEMOGLOBIN 8.5 g/dL (12.0-16.0); IMM GRAN# 0.11 X1000 (0.0-0.04); IMM GRAN% 0.6 % (0.0-0.5); LYMPH# 0.85 X1000 (1.2-3.4); LYMPH% 4.6 % (20.5-51.1); MANUAL DIFF NEEDED? YES; MCH 27.7 PG (27-31); MCHC 30.2 g/dL (33-37); MCV 91.5 FL (81-99); MONO# 0.88 X1000 (0.11-0.59); MONO% 4.8 % (1.7-9.3); MPV 11.6 FL (7.4-10.4); NEUT% 84.8 % (42.2-75.2); PLT 241 X1000 (130-400); RBC 3.07 XMIL (4.2-5.4)
[2016-10-21 06:29] LABS: BANDS 4 % (0-1); EOS 4 % (1-10); LYMPHS 6 % (21-51); MONO 4 % (1-9)
[2016-10-21 06:43] LABS: ALBUMIN 2.1 g/dL (3.5-5.0); CALCIUM 8.1 mg/dL (8.8-10.2); MAGNESIUM 1.5 mg/dL (1.5-2.7); POTASSIUM 3.4 mmol/L (3.5-5.1); TOTAL BILIRUBIN 0.29 mg/dL (0.20-1.00); TOTAL PROTEIN 5.1 g/dL (6.3-8.3)
[2016-10-21] MEDS: HUMALOG SUBQ SCH ×4 (07:15→20:46)
--- NOTE | 2016-10-21 07:42 | Diag Imaging Result Document ---
PROCEDURE NAME: CHEST-PORTABLE - 10/21/2016 SINGLE FRONTAL RADIOGRAPH OF THE CHEST: COMPARISON: 10/20/2016. FINDINGS: ET tube is in stable position. The tip of the NG tube is obscured by overlying soft tissue attenuation. Inspiration is suboptimal. There are persistent ill-defined basilar opacities that are similar to the previous study, likely representing pulmonary venous congestion and interstitial edema. Superimposed infection is not excluded. No definite new consolidation is identified. There is stable cardiomegaly. IMPRESSION: Essentially stable chest.
[2016-10-21] MEDS: DIFLUCAN 100 MG/NS 50 ML IV SCH ×2 (08:46→20:44)
[2016-10-21] MEDS: PROTONIX IV SCH (08:46)
--- NOTE | 2016-10-21 12:07 | PROGRESS NOTE ---
DATE: 10/21/2016 SUBJECTIVE: This morning, Ms. Waters continues to be stable. She is still intubated. Per the nursing staff, the night was uneventful. She is tolerating her tube feeding, which was started yesterday. OBJECTIVE: Vital Signs: Stable. Blood pressure is 116/63, pulse of 86, respiration is 12, temperature is 98.1. The patient is saturating 100% on mechanical ventilation. General exam: Ms. Waters is a 66-year-old, female. She was in bed, intubated. Seems to be synchronizing very well with the ventilator. HEENT: Mucosa is pink and moist. Anicteric. Acyanotic. Neck: Supple. Chest: Air entry is bilaterally reduced. Few bibasilar crepitations. Cardiovascular: Regular rate and rhythm. Abdomen: Soft, distended. Bowel sounds present. Extremities: No pedal edema. [employer]IC: Patient is able to open her eyes to her name and moves extremities to painful stimulation. LABORATORY DATA: WBC is 18.32, hemoglobin is 8.5, platelet count of 241. There is a 4% bands on the peripheral smear. PH 7.34, pCO2 of 51, pO2 of 87. Sodium is 143, potassium is 3.4, chloride is 103, bicarb is 30, BUN is 37, creatinine is 3.7. I's and O's: Weston catheter output of 535. ASSESSMENT: 1. Acute hypoxemic respiratory failure. Patient continues to be intubated. She is being followed by Pulmonary medicine. The patient seems to be oxygenating very well on minimum PEEP and FiO2. My guess is she will probably be able to be extubated very soon. Recent chest x- ray, however, continues to show some bilateral infiltrates. 2. Sepsis. So far blood cultures have been negative. A urine culture showed yeast. Patient is on broad-spectrum antibiotics. We think the sepsis is from both the pneumonia and urinary tract infection. He is being also followed by Infectious Disease. 3. Acute kidney injury, suspicious for acute tubular necrosis. Patient has minimum urine output yesterday. She is being followed up by Nephrology. 4. Skin rash, mainly in the intertriginous area. Likely from fungals. Patient is on antifungal. 5. Morbid obesity. 6. Mitral valve annulus with mass on the posterior valve, suspicious for vegetation. So far, the patient is getting antibiotics. I think that we would defer if ID wants any further investigations on this.
--- NOTE | 2016-10-21 13:27 | PROGRESS NOTE ---
DATE: 10/21/2016 SUBJECTIVE: Ms. Waters is resting quietly in bed. She remains ventilator dependent. She remains unresponsive on the ventilator with Diprivan. OBJECTIVE: Her most recent vital signs, her temperature is 98.1 degrees, blood pressure is 97/52, heart rate 73, respirations 18. She remains on 40% FiO2. Her last recorded saturation is 100%. She has had 1908 in, she has had 635 out per Weston catheter plus tube feedings in. LABS: This a.m. sodium 143, potassium 3.4, chloride 102, CO2 30, BUN 37, creatinine 3.3, glucose 190. Her anion gap is 11. Calcium is 8.1, magnesium 1.5, albumin is 2.1. Her total bilirubin is 0.29. AST 51, ALT 18. White count 18.32, hemoglobin 8.5, hematocrit 28.1, with a platelet count of 241,000. Her ABGs: PH 7.34, CO2 51, PO2 87, bicarb 25.6, this is on 40% FiO2. Her lactate is 2. PHYSICAL EXAMINATION: General: This is a 66-year-old female. She is currently resting in bed. She is ventilator dependent and sedated. She is in no acute distress. Skin: Warm and dry. HEENT: Atraumatic normocephalic. Conjunctiva is pale. She has HANNA. Mucous membranes are dry. Neck: Supple. Trachea midline. Unable to determine JVD. Cardiovascular: Regular rate and rhythm. No murmur or gallop appreciated. Lungs: Diminished breath sounds anterior due to body habitus. Otherwise, clear to auscultation anterior. Abdomen: Positive bowel sounds. She continues on tube feedings with NG tube in place. Genitourinary: Weston catheter remains in place. Adequate urine out. Extremities: She continues with edema to the upper extremities right hand greater than left hand. Trace pretibial edema nonpitting. No clubbing or cyanosis. Integumentary: No rashes or lesions evident. Neurological: As mentioned above. ASSESSMENT AND PLAN: 1. Acute kidney injury. ATN. Her urine output has been acceptable. Creatinine and BUN continue to fall. We will continue to monitor. 2. Electrolytes. These are acceptable. 3. Acid-base balance. This is acceptable. 4. Anemia. This remains low but stable. I would like to thank you for allowing us to follow with this patient. Seen, data reviewed, discussed with Amish Stokes on 10/22/16. I agree with the above assessment and plan of care. rg Dictated by BRODIE Frank for Migue Galeano MD [facility]
[2016-10-21] MEDS: LOVENOX SUBQ SCH (13:46)
[2016-10-21] MEDS: OFIRMEV 1000 MG/ISOTONIC SOLN 100 ML IV PRN ×2 (16:03→20:45)
--- NOTE | 2016-10-21 17:03 | PROGRESS NOTE ---
DATE: 10/21/2016 PRESENT ILLNESS: The patient currently is being treated for a bibasilar pneumonia and also for bilateral groin infections causing cellulitis. MEDICATIONS: The patient is receiving a combination of vancomycin, Zosyn and fluconazole. PHYSICAL EXAMINATION: Vital Signs: Temperature is 101 degrees, pulse 85, respirations 20, blood pressure 107/57. General: This is an ill-appearing, middle-aged female. She is intubated. Head, eyes ears, nose, and throat: Patient is intubated. No drainage noted from the nose or ears. Neck: No meningismus. Thorax: The patient appeared to have an increased AP diameter to the chest. Lungs: Clear to auscultation. Cardiovascular: Regular heart rate. Abdomen: Soft and nontender. Neurologic: The patient is intubated. She is obtunded. She did not respond to verbal stimuli. There was no tremor. Integument: Both groin areas have less drainage and no odor. LABORATORY AND X-RAY: Chest x-ray shows bibasilar opacities. CBC shows a white count of 18,320, hemoglobin 8.5 and platelet count 241,000. Creatinine is 3.3. The GFR is 17. Arterial blood gases show a pH of 7.34, PO2 of 87, a pCO2 of 51. Sputum and the culture from the groin are sterile thus far. Urine is growing yeast. ASSESSMENT AND PLAN: Patient has bibasilar pneumonia and bilateral groin infections. I plan to continue the current antibiotics. It is somewhat disturbing that the patient has leukocytosis and fever; however, she has just started her antimicrobial therapy. COMORBIDITIES: Obesity, diabetes, sleep apnea and COPD. [facility]
[2016-10-21] MEDS ORDERED: INSULIN PEN NEEDLES ONE (20:22)
[2016-10-21] MEDS: LANTUS SUBQ SCH (20:46)
[2016-10-22] MEDS: ZOSYN 3.375 GM/NS 50 ML IV SCH ×4 (03:38→16:45)
[2016-10-22] MEDS: DUONEB (A & A) INH SCH ×6 (03:43→22:39)
[2016-10-22 04:49] LABS: ALLEN TEST YES; BE 0.3 mmoll (-3.0-3.0); BLOOD TYPE ARTERIAL; DRAW SITE R RADIAL; PCO2(98.6) 42 mmHg (35-45); PO2(98.6) 95 mmHg (60-100); SAMPLE BLOOD; SRATE 10 BPM; TVOL 600 mL; pH(98.6) 7.39 (7.35-7.45)
[2016-10-22 04:50] LABS: MODALITY VENTILATOR
[2016-10-22 05:30] LABS: BASO% 0.5 % (0.0-0.8); EOS% 5.1 % (0.0-10.0); HEMATOCRIT 28.4 % (37.0-47.0); HEMOGLOBIN 8.7 g/dL (12.0-16.0); IMM GRAN# 0.27 X1000 (0.0-0.04); IMM GRAN% 1.4 % (0.0-0.5); LYMPH# 1.68 X1000 (1.2-3.4); LYMPH% 8.5 % (20.5-51.1); MANUAL DIFF NEEDED? YES; MCH 27.4 PG (27-31); MCHC 30.6 g/dL (33-37); MCV 89.6 FL (81-99); MONO% 6.6 % (1.7-9.3); NEUT% 77.9 % (42.2-75.2); PLT 272 X1000 (130-400); RBC 3.17 XMIL (4.2-5.4)
[2016-10-22 05:45] LABS: ALBUMIN 1.9 g/dL (3.5-5.0); CALCIUM 8.3 mg/dL (8.8-10.2); MAGNESIUM 1.6 mg/dL (1.5-2.7); POTASSIUM 3.2 mmol/L (3.5-5.1); TOTAL BILIRUBIN 0.44 mg/dL (0.20-1.00); TOTAL PROTEIN 5.5 g/dL (6.3-8.3)
[2016-10-22] MEDS: HUMALOG SUBQ SCH ×4 (06:23→20:00)
[2016-10-22 07:06] LABS: LYMPHS 2 % (21-51); MONO 4 % (1-9)
--- NOTE | 2016-10-22 07:30 | Diag Imaging Result Document ---
PROCEDURE NAME: CHEST-PORTABLE - 10/22/2016 SINGLE FRONTAL RADIOGRAPH OF THE CHEST: COMPARISON: 10/21/2016. FINDINGS: ET tube is in stable position. NG tube projects below the diaphragm and out of the field of view. Inspiration has improved slightly. Ill-defined opacities at the lung bases are approximately stable given differences in inspiration. No new consolidations are identified. Cardiac silhouette is stable. IMPRESSION: Slightly better inspiration but, otherwise, stable chest.
[2016-10-22] MEDS: DIFLUCAN 100 MG/NS 50 ML IV SCH ×2 (07:37→19:58)
[2016-10-22] MEDS: SODIUM CHLORIDE 0.9% INJ SCH (08:13)
[2016-10-22] MEDS: PROTONIX IV SCH (08:13)
--- NOTE | 2016-10-22 10:38 | PROGRESS NOTE ---
DATE: 10/22/2016 SUBJECTIVE: She is arousable. She is no longer on sedation. OBJECTIVE: Vital Signs: Blood pressure 113/63, heart rate 74, respiration 11, afebrile. Intake 1.3 L. Output 560 mL. PHYSICAL EXAMINATION: Elderly obese woman in no distress. Skin is warm and dry. Conjunctivae are pink. Neck veins not appreciated. Heart is regular. Lungs have equal breath sounds. No crackles. Abdomen is soft and nontender. Bowel sounds are present. Extremities have 1+ edema. No clubbing or cyanosis. LABORATORY DATA: Sodium 144, potassium 3.2, chloride 103, bicarbonate 22. BUN 46, creatinine 3.8. Hemoglobin 8.7. IMPRESSION: 1. Acute kidney injury: Presumably ATN following cardiovascular collapse. Urine output has diminished somewhat. Her labs her modestly higher today. No indications for dialysis at this time. We will decrease her Zosyn dose to q. 8 hours. 2. Anemia, stable. 3. Electrolytes are acceptable. 4. Acid-base acceptable.
[2016-10-22] MEDS ORDERED: ALBUMIN 25% IV ONE (10:39)
[2016-10-22] MEDS ORDERED: MORPHINE IV PRN (10:49)
[2016-10-22] MEDS ORDERED: ATIVAN IV PRN (10:49)
--- NOTE | 2016-10-22 12:16 | PROGRESS NOTE ---
DATE: 10/22/2016 Today Ms. Waters's condition continues to be stable but critical. I had opportunity to talk to the daughter in the ICU at the room. Per the nursing staff, her night was uneventful. OBJECTIVE: Vital signs: Blood pressure is 113/63, pulse of 74, respiration is 11, temperature is 98.3 degrees. Patient is saturating 99% on mechanical ventilator. Objectively : Ms. Waters is a 66- year-old female. She is in bed, synchronizing very well with the ventilator. HEENT: Mucosa is pink and moist. Anicteric and acyanotic. Neck: Supple. Chest: Air entry is bilaterally reduced. A few bibasilar crepitations. Cardiovascular: Regular rate and rhythm. Abdomen: Distended but nontender. Bowel sounds are present. Extremities: No pedal edema. 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 Moves all extremities to painful stimuli. LABORATORY DATA: WBC is 19.74, hemoglobin is 8.7, platelet count of 272,000. There is no bands. Chemistry: Sodium is 144, potassium is 3.2, chloride is 103, bicarb is 22, creatinine is 3.8. I's and O's: Urine output 560 in 24 hours. The patient also had 1 bowel movement yesterday documented. CURRENT MEDICATIONS INCLUDE: 1. Acetaminophen. 2. Albuterol. 3. Lovenox. 4. Diflucan 100 mg q.12. 5. Glargine insulin. 6. Micafungin. 7. Pantoprazole. 8. Vancomycin. 9. Zosyn. ASSESSMENT: 1. Acute hypoxemic respiratory failure. Patient continues to be intubated and is being followed by Pulmonary Medicine. 2. Sepsis likely secondary to pneumonia and UTI. Patient is off the pressors. 3. Multifocal pneumonia. Patient is getting antibiotics. She is being followed as well by ID. 4. Acute kidney injury. Suspicious for ATN. Patient continues to have minimum urine output. 5. Skin rashes mainly in the intertrigo area likely from fungal infection. 6. Morbid obesity. 7. Candiduria. We are still waiting the ID and sensitivity on this. 8. Leukocytosis. This has slightly worsened. The patient has been on antibiotic and antifungal for some time. So far blood cultures have been no growth in 48 hours. The urine culture is still pending. I am not sure if we need to broaden the antifungal coverage. We will however defer this to ID. My understanding patient has failed weaning trials. Today will continue further recommendations from Pulmonary Medicine. Patient is being followed by Pulmonary Medicine, ID and Nephrology and we appreciate all their inputs. I was able to update the family members about the critical nature of the patient today. Critical time spent is 45 minutes. [facility]
[2016-10-22] MEDS: LOVENOX SUBQ SCH (12:29)
--- NOTE | 2016-10-22 18:07 | PROGRESS NOTE ---
DATE: 10/22/2016 PRESENT ILLNESS: The patient currently is being treated for a bibasilar pneumonia. It should be noted that the sputum is growing yeast. The patient's urine also is growing yeast. Culture from the patient's groin area showed no growth. The patient does appear to have a bibasilar pneumonia. MEDICATIONS: The patient is on a combination of vancomycin and fluconazole. PHYSICAL EXAMINATION: Vital Signs: Temperature is 98.9 degrees, pulse 72, respirations 15, blood pressure 115/67. General: The patient is intubated and is obtunded. Lungs: Clear to auscultation. Cardiovascular: Regular heart rate. Abdomen: Soft, without masses or tenderness. Both groin areas show there is no drainage or odor noted. LAB AND X-RAY: Today the CBC had a white count of 19,740, hemoglobin 8.7, platelet count 272,000. The blood gases showed a pH of 7.39, a PO2 of 95, and a pCO2 of 42. Chest x- ray showed bibasilar opacities. Alkaline phosphatase was 149. The sputum grew yeast, the urine grew yeast, and the groin cultures negative. Echocardiogram shows possible mitral valve vegetation. ASSESSMENT AND PLAN: I plan to continue treating the patient's pneumonia and groin infections with a combination of vancomycin and fluconazole. I am adding cefepime for possible endocarditis. COMORBIDITIES: Include obesity, diabetes mellitus, sleep apnea, and COPD. [facility]
--- NOTE | 2016-10-22 18:23 | PROGRESS NOTE ---
DATE: 10/22/2016 SUBJECTIVE: The patient had an echocardiogram done and it shows that on the mitral valve there could be a vegetation. The patient currently is getting vancomycin and Zosyn, which would provide good coverage for the majority of causes of endocarditis. If the patient gets better, she would be a candidate to have a transesophageal echocardiogram.
[2016-10-22] MEDS: MAXIPIME 1 GM/NS 50 ML IV SCH (18:38)
[2016-10-22] MEDS: LANTUS SUBQ SCH (20:00)
[2016-10-23] MEDS: DUONEB (A & A) INH SCH ×6 (02:45→23:10)
[2016-10-23 04:34] LABS: ALLEN TEST YES; BE 2.8 mmoll (-3.0-3.0); BLOOD TYPE ARTERIAL; DRAW SITE R RADIAL; METHB 1.8 % (0.0-1.5); O2(CT) 11.6 mL/dL (15.0-23.0); PO2(98.6) 101 mmHg (60-100); SAMPLE BLOOD; SAO2 99.6 % (95.0-100.0); SRATE 10 BPM; THB 8.5 g/dL (11.5-17.4); TVOL 500 mL; pH(98.6) 7.36 (7.35-7.45)
[2016-10-23 04:35] LABS: MODALITY VENTILATOR; PCO2(98.6) 51 mmHg (35-45)
[2016-10-23 04:46] LABS: INR 1.15; PROTIME 12.2 Seconds (9.2-11.7)
[2016-10-23] MEDS: MAXIPIME 1 GM/NS 50 ML IV SCH ×2 (05:35→17:51)
[2016-10-23 05:37] LABS: BASO% 0.6 % (0.0-0.8); EOS# 1.12 X1000 (0.0-0.7); EOS% 6.2 % (0.0-10.0); HEMATOCRIT 27.2 % (37.0-47.0); HEMOGLOBIN 8.2 g/dL (12.0-16.0); IMM GRAN# 0.64 X1000 (0.0-0.04); IMM GRAN% 3.6 % (0.0-0.5); LYMPH# 1.54 X1000 (1.2-3.4); LYMPH% 8.6 % (20.5-51.1); MANUAL DIFF NEEDED? YES; MCH 27.5 PG (27-31); MCHC 30.1 g/dL (33-37); MCV 91.3 FL (81-99); MONO# 1.56 X1000 (0.11-0.59); MONO% 8.7 % (1.7-9.3); MPV 10.4 FL (7.4-10.4); NEUT% 72.3 % (42.2-75.2); PLT 279 X1000 (130-400); RBC 2.98 XMIL (4.2-5.4)
[2016-10-23 05:38] LABS: ALBUMIN 2.2 g/dL (3.5-5.0); TOTAL BILIRUBIN 0.33 mg/dL (0.20-1.00); TOTAL PROTEIN 5.6 g/dL (6.3-8.3)
[2016-10-23 05:54] LABS: EOS 6 % (1-10); LYMPHS 8 % (21-51); MONO 8 % (1-9)
[2016-10-23] MEDS: HUMALOG SUBQ SCH ×4 (06:04→20:04)
[2016-10-23 07:35] LABS: POTASSIUM 3.2 mmol/L (3.5-5.1)
--- NOTE | 2016-10-23 08:09 | Diag Imaging Result Document ---
PROCEDURE NAME: CHEST-PORTABLE - 10/23/2016 AP PORTABLE CHEST AT 0450 HOURS: FINDINGS: There is an endotracheal tube with its tip above the bambi. There is an NG tube which passes below the diaphragm. There is cardiomegaly. There is subsegmental atelectasis in the right upper lobe and lower lobe. Lungs appear to be slightly better expanded and clearer than on 10/22/2016, particularly the lower lobes. IMPRESSION: Slight improvement in atelectasis and pulmonary edema.
[2016-10-23] MEDS: SODIUM CHLORIDE 0.9% INJ SCH (08:12)
[2016-10-23] MEDS: DIFLUCAN 100 MG/NS 50 ML IV SCH ×2 (08:12→20:02)
[2016-10-23] MEDS: PROTONIX IV SCH (08:12)
[2016-10-23] MEDS ORDERED: MAGNESIUM SULFATE 2 GM/S.W.I. 50 ML IV ONE (08:20)
[2016-10-23] MEDS: POTASSIUM CHLORIDE 20 MEQ/SWI 100 ML IV SCH ×2 (08:40→10:48)
[2016-10-23] MEDS: VANCOMYCIN 1,500 MG in NS 250 ML IV SCH (08:42)
[2016-10-23] MEDS ORDERED: NS 250 ML ONE (09:00)
[2016-10-23] MEDS ORDERED: SODIUM BICARBONATE 8.4% 50 MEQ in D5W 1,000 ML IV SCH (10:00)
--- NOTE | 2016-10-23 10:07 | PROGRESS NOTE ---
DATE: 10/23/2016 SUBJECTIVE: She is spontaneously awake today on the ventilator but does not really interact. OBJECTIVE: Vital signs: Blood pressure 113/66, heart rate 77, respirations 11, afebrile. Intake and output: Intake 1.1 L. Output 700 mL. General: No acute distress. Skin: Warm and dry. HEENT: Conjunctivae are pink. Pupils are equal. Neck: Neck veins are not visible. Heart: Regular. Lungs: Equal breath sounds. No crackles. Abdomen: Soft and obese and nontender. Bowel sounds are present. Extremities: Have trace edema. No clubbing or cyanosis. LABORATORY DATA: Sodium 148, potassium 3.2, chloride 105, bicarbonate 25, BUN 49, creatinine 3.5. Hemoglobin 8.2. IMPRESSIONS: 1. Acute kidney injury. Creatinine is slightly better today. Urine output is acceptable. She has no indications for hemodialysis. 2. Electrolytes are acceptable, though her sodium is trending upward. We will observe and change her fluids tomorrow if it continues to rise. 3. Acid-base, in target.
--- NOTE | 2016-10-23 10:47 | PROGRESS NOTE ---
DATE: 10/23/2016 SUBJECTIVE: Today, Ms. Latanya Waters's condition remains stable. The was there. I was able to talk to him. Per the nursing staff, the night was uneventful. OBJECTIVE: Vital signs: Blood pressure is 122/70. Pulse of 79. Respirations 14. Temperature is 99 degrees. General: Ms. Waters is a 66-year-old female. She is in bed, intubated, synchronizing very well with the ventilator. HEENT: Mucosa is pink and moist. Anicteric. Acyanotic. Neck: Supple. Chest: Air entry is bilaterally reduced. A few bibasilar crepitations. Cardiovascular: Regular rate and rhythm. Abdomen: Distended but nontender. Bowel sounds are present. No hepatosplenomegaly. Extremities: No pedal edema. 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 Does not seem to be very consistent in following commands, though. LABORATORY DATA: WBC is 17.96. Hemoglobin is 8.2. Platelet count is 279,000. Sodium is 148. Potassium is 3.2. Chloride is 105. Bicarb is 25. BUN is 49. Creatinine is 3.5, slightly improved from 3.8 yesterday. ASSESSMENT: 1. Acute hypoxemic respiratory failure. Patient continues to be intubated. A chest x-ray this morning shows slight improvement in atelectasis and pulmonary edema. 2. Sepsis secondary to pneumonia. Patient continues to be on vancomycin. Zosyn has been discontinued. The patient is now on cefepime since yesterday by ID. 3. Suspected vegetation on the mitral valve suspicious for endocarditis. The patient is on antibiotics. Hopefully, when she is more stable, we will be able to get TTE. 4. Candiduria, still waiting on the ID and sensitivity. 5. Skin rash mainly in the intertrigo area likely from fungal infection. Patient is on fluconazole. 6. Leukocytosis, stable. Will followup. So far, blood cultures have been negative. 7. [id number] kidney disease. The patient is making minimal urine output. She had 735 urine output for yesterday, which is marginally acceptable. 8. Hypernatremia. We are going to give the patient flushes and bolus of free water through the NG tube. 9. Hypokalemia. We will replace this. 10. Altered mental status. I think this is all related to global encephalopathy multifactorial etiology, including sepsis induced as well as possible anoxic brain injury. Would have to wait for patient to be extubated to really be able to check her mentation to know how much of anoxic brain injury she suffered when she had the code. 11. Cardiac arrest on admission, noted.
[2016-10-23] MEDS: LOVENOX SUBQ SCH (12:22)
--- NOTE | 2016-10-23 15:37 | PROGRESS NOTE ---
DATE: 10/23/2016 PRESENT ILLNESS: The patient is being treated for a bibasilar pneumonia. She also was felt to have an infection in both groin areas. An echocardiogram shows that the patient possibly may have a mitral valve vegetation. MEDICATIONS: Patient is on a combination now of vancomycin, fluconazole, and cefepime. PHYSICAL EXAMINATION: Vital Signs: Temperature is 99.2 degrees, pulse 76, respirations 14, blood pressure 118/67. Generally: This is an intubated, obese, middle-aged female. She is intubated and sedated. Lungs: Clear to auscultation. Cardiovascular: Regular heart rate. Abdomen: Soft without masses or tenderness. Both groin areas showed no drainage today. LAB AND X-RAY: Chest x-ray shows improved atelectasis and pulmonary edema. The patient's CBC shows a white count of 17,960, hemoglobin 8.2, and platelet count 279,000. Patient's blood gases show a pH of 7.36, pO2 of 101, a pCO2 of 51. The creatinine is 3.5 and the GFR is 16. ASSESSMENT AND PLAN: I plan to continue the patient's current antibiotics for her pneumonia, groin infection, and possible endocarditis. When the patient's condition improves a CRYSTAL will be done. PATIENT'S COMORBIDITIES: Includes obesity, diabetes mellitus, sleep apnea, and chronic obstructive pulmonary disease. [facility]
[2016-10-23] MEDS: LANTUS SUBQ SCH (20:02)
[2016-10-24] MEDS: DUONEB (A & A) INH SCH ×6 (03:30→22:57)
[2016-10-24 04:45] LABS: ALLEN TEST YES; BE 2.8 mmoll (-3.0-3.0); BLOOD TYPE ARTERIAL; DRAW SITE R RADIAL; METHB 1.7 % (0.0-1.5); O2(CT) 11.9 mL/dL (15.0-23.0); PCO2(98.6) 48 mmHg (35-45); PO2(98.6) 87 mmHg (60-100); SAMPLE BLOOD; SAO2 98.7 % (95.0-100.0); SRATE 10 BPM; THB 8.8 g/dL (11.5-17.4); TVOL 500 mL; pH(98.6) 7.38 (7.35-7.45)
[2016-10-24 04:46] LABS: MODALITY VENTILATOR
[2016-10-24] MEDS: MAXIPIME 1 GM/NS 50 ML IV SCH ×2 (05:31→18:09)
[2016-10-24 05:51] LABS: HEMOGLOBIN 8.3 g/dL (12.0-16.0); MCH 27.9 PG (27-31); MCHC 29.6 g/dL (33-37); MCV 94.3 FL (81-99); MPV 10.6 FL (7.4-10.4); RBC 2.97 XMIL (4.2-5.4)
[2016-10-24 05:53] LABS: ALBUMIN 2.4 g/dL (3.5-5.0); CALCIUM 10.1 mg/dL (8.8-10.2); MAGNESIUM 2.3 mg/dL (1.5-2.7); POTASSIUM 3.3 mmol/L (3.5-5.1); TOTAL BILIRUBIN 0.32 mg/dL (0.20-1.00); TOTAL PROTEIN 5.9 g/dL (6.3-8.3)
[2016-10-24] MEDS: HUMALOG SUBQ SCH ×4 (06:00→20:28)
--- NOTE | 2016-10-24 07:25 | PROGRESS NOTE ---
DATE: 10/24/2016 SUBJECTIVE: Still on the ventilator. Still arousable. OBJECTIVE: Vital Signs: Blood pressure 166/75. Heart rate 76. Respirations 16. Afebrile. Intake and Output: Intake 3.1 L. Output 960 mL. PHYSICAL EXAMINATION: General: No acute distress. Skin: Warm and dry. Eyes: Conjunctivae are pink. Heart: Regular. Lungs: Equal breath sounds. No crackles. Increased expiratory noise. Abdomen: Soft, nontender. Bowel sounds are present. Extremities: Minimal edema. No clubbing or cyanosis. LABORATORY DATA: Sodium 146. Potassium 3.3. Chloride 105. Bicarbonate 30. BUN 46. Creatinine 2.8. Hemoglobin 8.3. IMPRESSION: 1. Acute kidney injury. Her creatinine is improving. Urine output is 1 L. She has been in moderate, positive fluid balance. She does not appear volume overloaded on exam today. Today's chest x-ray is not yet available. No indications for dialysis. 2. Electrolytes: Mild hypokalemia. Observe. 3. Acid-base, acceptable.
--- NOTE | 2016-10-24 07:27 | Diag Imaging Result Document ---
PROCEDURE NAME: CHEST-PORTABLE - 10/24/2016 PORTABLE CHEST: COMPARISON: 10/23/2016. FINDINGS: The endotracheal tube has its tip located 1-2 cm above the bambi. A nasogastric tube overlies the esophagus. Due to the technique I am unable to see the distal portion although it does go beneath the diaphragm. The heart is enlarged. There is vascular distention. Infiltrates are slightly more pronounced than on the prior study. A PICC line has been placed. The tip overlies the right atrium. IMPRESSION: Overall mild worsening.
[2016-10-24] MEDS: SODIUM CHLORIDE 0.9% INJ SCH (08:28)
[2016-10-24] MEDS: PROTONIX IV SCH (08:28)
[2016-10-24] MEDS: DIFLUCAN 100 MG/NS 50 ML IV SCH ×2 (08:28→19:29)
[2016-10-24] MEDS ORDERED: BLISTEX MEDICATED BERRY LIP BALM TOP PRN (09:11)
[2016-10-24 10:14] LABS: ALLEN TEST YES; BE 3.5 mmoll (-3.0-3.0); BLOOD TYPE ARTERIAL; DRAW SITE R RADIAL; METHB 1.9 % (0.0-1.5); O2(CT) 12.9 mL/dL (15.0-23.0); PO2(98.6) 72 mmHg (60-100); SAMPLE BLOOD; SAO2 95.7 % (95.0-100.0); THB 9.9 g/dL (11.5-17.4); pH(98.6) 7.28 (7.35-7.45)
[2016-10-24 10:18] LABS: MODALITY VENTILATOR; PCO2(98.6) 67 mmHg (35-45)
[2016-10-24] MEDS ORDERED: POTASSIUM CHLORIDE 10% LIQUID PO ONE (10:24)
--- NOTE | 2016-10-24 11:57 | PROGRESS NOTE ---
DATE: 10/24/2016 Today Ms. Waters continues to be stable in the ICU. She is intubated. I understand she went on some trials for weaning and she continued to fail. OBJECTIVE: Vital signs: Blood pressure is 167/87, pulse of 80, respirations 22, temperature is 99.0 degrees. Patient is saturating 100% on mechanical ventilation. General: Ms. Waters is a 66- year-old female. She is in bed, synchronizing well with the ventilator. Mucosa is pink and anicteric, acyanotic. Neck: Supple. Chest: Air entry is bilaterally reduced. There are some transmitted sounds from the ventilator. Cardiovascular: Regular rate and rhythm. Abdomen: Soft and distended. No hepatosplenomegaly. Bowel sounds are present. There are some excoriations under the abdominal wall extending to the inguinal region consistent with some infections. CONTROL AND RECOVERY COMBAT RESCUE: Patient is more alert today and is able to follow simple commands. LABORATORY DATA: WBC is 15.15, hemoglobin 8.3, platelet count of 316,000. Chemistry: Sodium is 146, potassium is 3.3, chloride is 105, bicarb is 30. BUN is 46, creatinine is 3.8. A chest x-ray this morning shows overall mild worsening. ASSESSMENT: 1. Acute hypoxemic respiratory failure. Patient continues to be intubated. The chest x-ray this morning showed some worsening in the infiltrates. IV fluids have been discontinued. 2. Sepsis secondary to pneumonia. Patient is on vancomycin and cefepime. He is being followed by ID. 3. Suspected vegetation on the mitral valve suspicious for endocarditis. The patient is on antibiotics. So far blood cultures have been unremarkable. Once patient is stable we might be able to do a CRYSTAL. 4. Candiduria. ID and sensitivity still pending. 5. Skin rash mainly in the intertrigo area likely from fungal infection. Patient is on fluconazole. 6. Leukocytosis improving. 7. Acute on chronic kidney disease. Patient continues to have adequate urine output. The urine output yesterday was 960. 8. Hypokalemia. Will continue to replace. 9. Altered mental status. The patient's mentation seems to be improving. She is able to follow some basic commands. 10. Cardiac arrest on presentation. Noted. We will continue critical care management of the patient and we appreciate the input from other subspecialties involved.
[2016-10-24] MEDS: D5W 1,000 ML IV SCH (12:47)
[2016-10-24] MEDS: LASIX IV SCH ×2 (12:48→18:09)
[2016-10-24] MEDS: LOVENOX SUBQ SCH (12:49)
--- NOTE | 2016-10-24 17:34 | PROGRESS NOTE ---
DATE: 10/24/2016 PRESENT ILLNESS: The patient is still intubated. She is being treated by me for a bibasilar pneumonia, an infection in both groin areas, and possible mitral valve endocarditis. MEDICATIONS: This is day 1 of vancomycin, fluconazole, and cefepime. PHYSICAL EXAMINATION: Vital Signs: Temperature is 98.7 degrees, pulse 88, respirations 14, blood pressure 147/79. General Appearance: The patient, as mentioned above, is intubated. She is obtunded. She did not make any spontaneous movements when I was examining her. Lungs: Clear to auscultation. Cardiovascular: Regular heart rate. Abdomen: Soft and nontender. I looked in both groin areas tonight and there was no odor or drainage or erythema. LAB AND X-RAYS: The patient's CBC has a white count of 15,150, hemoglobin is 8.3, and platelet count 316,000. Arterial blood gases show a pH of 7.28, a PO2 of 72, and a pCO2 of 67. Creatinine is 2.8. GFR is 21. ASSESSMENT AND PLAN: I plan to continue the patient's current antibiotics for the patient's groin area infection, pneumonia, and possible endocarditis. When the patient's condition improves she will be a candidate to have a transesophageal echocardiogram. COMORBIDITIES: Include obesity, diabetes mellitus, sleep apnea, and chronic obstructive pulmonary disease.
[2016-10-24] MEDS: OFIRMEV 1000 MG/ISOTONIC SOLN 100 ML IV PRN (19:30)
[2016-10-24] MEDS: LANTUS SUBQ SCH (20:29)
[2016-10-25] MEDS: LASIX IV SCH ×4 (01:11→21:49)
[2016-10-25] MEDS: D5W 1,000 ML IV SCH ×2 (01:13→14:27)
[2016-10-25] MEDS: MORPHINE IV PRN (01:13)
[2016-10-25] MEDS: DUONEB (A & A) INH SCH ×6 (03:19→22:43)
[2016-10-25 04:24] LABS: ALLEN TEST YES; BE 7.6 mmoll (-3.0-3.0); BLOOD TYPE ARTERIAL; DRAW SITE R RADIAL; METHB 2.2 % (0.0-1.5); O2(CT) 11.7 mL/dL (15.0-23.0); PO2(98.6) 82 mmHg (60-100); SAMPLE BLOOD; SAO2 98.6 % (95.0-100.0); SRATE 10 BPM; THB 8.8 g/dL (11.5-17.4); TVOL 500 mL; pH(98.6) 7.42 (7.35-7.45)
[2016-10-25 04:25] LABS: PCO2(98.6) 51 mmHg (35-45)
[2016-10-25 04:26] LABS: MODALITY VENTILATOR
[2016-10-25] MEDS: MAXIPIME 1 GM/NS 50 ML IV SCH ×2 (06:31→17:43)
[2016-10-25] MEDS: HUMALOG SUBQ SCH ×4 (06:32→20:21)
[2016-10-25 06:41] LABS: BASO% 0.9 % (0.0-0.8); EOS# 1.03 X1000 (0.0-0.7); EOS% 6.9 % (0.0-10.0); HEMATOCRIT 27.2 % (37.0-47.0); IMM GRAN# 1.81 X1000 (0.0-0.04); IMM GRAN% 12.2 % (0.0-0.5); LYMPH# 1.76 X1000 (1.2-3.4); LYMPH% 11.9 % (20.5-51.1); MANUAL DIFF NEEDED? YES; MCH 27.4 PG (27-31); MCHC 29.4 g/dL (33-37); MCV 93.2 FL (81-99); MONO# 1.57 X1000 (0.11-0.59); MONO% 10.6 % (1.7-9.3); MPV 10.2 FL (7.4-10.4); NEUT% 57.5 % (42.2-75.2); PLT 317 X1000 (130-400); RBC 2.92 XMIL (4.2-5.4)
[2016-10-25 07:14] LABS: ALBUMIN 2.2 g/dL (3.5-5.0); CALCIUM 9.9 mg/dL (8.8-10.2); MAGNESIUM 1.9 mg/dL (1.5-2.7); POTASSIUM 3.2 mmol/L (3.5-5.1); TOTAL BILIRUBIN 0.32 mg/dL (0.20-1.00); TOTAL PROTEIN 5.9 g/dL (6.3-8.3)
[2016-10-25 07:17] LABS: LYMPHS 14 % (21-51); MONO 10 % (1-9)
[2016-10-25] MEDS: DIFLUCAN 100 MG/NS 50 ML IV SCH ×2 (07:57→19:40)
[2016-10-25] MEDS: PROTONIX IV SCH (08:00)
[2016-10-25] MEDS: SODIUM CHLORIDE 0.9% INJ SCH (08:00)
--- NOTE | 2016-10-25 08:24 | Diag Imaging Result Document ---
PROCEDURE NAME: CHEST-PORTABLE - 10/25/2016 SINGLE FRONTAL RADIOGRAPH OF THE CHEST: COMPARISON: 10/24/2016. FINDINGS: ET tube is in stable position. NG tube projects below the diaphragm and out of the field of view. Right PICC line is stable. Infiltrates throughout the right lung are stable. There may be slight improvement on the left. Pulmonary venous congestion is again noted. No new consolidations are identified. Cardiac silhouette is stable. IMPRESSION: Slightly improved consolidation on the left. The right lung is stable.
[2016-10-25] MEDS ORDERED: POTASSIUM CHLORIDE 40 MEQ/SWI 100 ML IV ONE (09:05)
[2016-10-25 10:18] LABS: ALLEN TEST YES; BLOOD TYPE ARTERIAL; DRAW SITE R RADIAL; METHB 2.1 % (0.0-1.5); O2(CT) 11.3 mL/dL (15.0-23.0); PO2(98.6) 71 mmHg (60-100); SAMPLE BLOOD; SAO2 97.3 % (95.0-100.0); THB 8.6 g/dL (11.5-17.4); pH(98.6) 7.38 (7.35-7.45)
[2016-10-25 10:21] LABS: MODALITY VENTILATOR; PCO2(98.6) 58 mmHg (35-45)
[2016-10-25] MEDS: LOVENOX SUBQ SCH (14:02)
--- NOTE | 2016-10-25 14:16 | PROGRESS NOTE ---
DATE: 10/25/2016 SUBJECTIVE: She is about the same today. She will arouse and look at me and follow simple commands. OBJECTIVE: Vital Signs: Blood pressure 147/73, heart rate 84, respiration 10, afebrile. Intake 2.6 L. Output 4 L. General Appearance: No acute distress. Skin: Warm and dry. Conjunctivae are pink. Neck: Neck veins are not visible. Heart: Regular. Lungs: Have equal breath sounds. Few scattered crackles. Abdomen: Soft, nontender. Bowel sounds present. Extremities: Have 1+ edema, most prominent in the right upper extremity. No clubbing or cyanosis. LABORATORY DATA: Sodium 145, potassium 3.2, chloride 103, bicarbonate 30, BUN 45, creatinine 2.6, hemoglobin 8.0. IMPRESSION: Acute kidney injury: BUN and creatinine continue to improve though slowly. She has been in negative fluid balance over the last 24 hours as a result of diuretic use. She should continue to improve. No indications for dialysis. Acid-base and electrolytes are acceptable.
--- NOTE | 2016-10-25 16:27 | PROGRESS NOTE ---
DATE: 10/25/2016 SUBJECTIVE: Today Ms. Waters continued to be stable. She failed another weaning trial today. Otherwise she has been pretty stable. OBJECTIVE: Vital signs: Blood pressure is 107/55, pulse of 78, respirations 20, temperature is 99.3 degrees. General: Ms. Waters, 66-year-old female. She was in bed, did not seem to be in any distress. HEENT: Mucosa is pink and moist. Anicteric. Acyanotic. Neck: Supple. Chest: Air entry bilaterally reduced. Some few bilateral transmitted sounds from the ventilator. Cardiovascular: Regular rate and rhythm. No murmurs, no rubs. No gallops. Abdomen: Distended. No hepatosplenomegaly. Bowel sounds are present. There are some excoriations and abdominal wall extending to the inguinal region consistent with fungal infection. 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 Is able to show 2 fingers when she is asked to do so. LABORATORY DATA: WBC is 14.84, hemoglobin is 8.0, platelet count of 317,000. There is no bands on the peripheral smear. Chemistry. Sodium is 142, potassium is 3.2, chloride is 103, bicarb is 30, creatinine is 2.6. A chest x-ray this morning reveals slight improved consolidation on the left. The right lung is stable. CURRENT MEDICATIONS: Include. 1. Duo nebs. 2. Cefepime 1 g b.i.d. Today is day 3 on this cefepime. 3. Lovenox 30 mg subcutaneously daily. 4. Fluconazole 100 mg daily. Today is day 7. 5. Glargine 40 units at bedtime. 6. Vancomycin per pharmacy protocol. Today is day 7. 7. Pantoprazole. ASSESSMENT: 1. Acute hypoxemic respiratory failure. Patient continues to be intubated. She failed weaning trial today. Will continue with further recommendations from Pulmonary Medicine. 2. Sepsis secondary to pneumonia. Patient is currently off any pressors. Continues to be on vancomycin and cefepime. 3. Suspected vegetation on the mitral valve suspicious for endocarditis. Patient is currently on antibiotics. Blood cultures are negative. There is a plan to have her do CRYSTAL once she is stable. 4. Candiduria. Patient is on fluconazole still pending ID and sensitivity. I called the lab today and according to them they usually do not do ID and sensitivity on the urine sample. However they would go ahead and test for this. 5. Skin rash mainly in the intertrigo area mainly from fungal infection. 6. Leukocytosis, improving. 7. Acute on chronic kidney disease. Patient's urine output yesterday was 3975 and creatinine has slightly improved. 8. Altered mental status multifactorial. The patient is currently intubated. Will wait for vent to be off and be able to reassess her mentation adequately. 9. Status post cardiac arrest on presentation noted. GENERAL PLAN: We are going to continue with the current antibiotics. Patient is getting p.r.n. Lasix. Will replace the potassium and we will recheck her labs for tomorrow morning and continue daily weaning trials. [facility]
[2016-10-25] MEDS: LANTUS SUBQ SCH (20:21)
[2016-10-25] MEDS: VANCOMYCIN 1,500 MG in NS 250 ML IV SCH (21:49)
[2016-10-26] MEDS: MORPHINE IV PRN ×3 (00:43→19:58)
[2016-10-26] MEDS: DUONEB (A & A) INH SCH ×6 (02:59→23:16)
[2016-10-26] MEDS: LASIX IV SCH ×3 (03:56→23:30)
[2016-10-26] MEDS: D5W 1,000 ML IV SCH ×3 (03:56→19:49)
[2016-10-26 04:25] LABS: ALLEN TEST YES; BE 8.6 mmoll (-3.0-3.0); BLOOD TYPE ARTERIAL; DRAW SITE R RADIAL; METHB 1.6 % (0.0-1.5); O2(CT) 16.7 mL/dL (15.0-23.0); PO2(98.6) 71 mmHg (60-100); SAMPLE BLOOD; SAO2 95.3 % (95.0-100.0); SRATE 10 BPM; TVOL 500 mL
[2016-10-26 04:26] LABS: MODALITY VENTILATOR
[2016-10-26 04:27] LABS: PCO2(98.6) 57 mmHg (35-45)
[2016-10-26] MEDS: MAXIPIME 1 GM/NS 50 ML IV SCH ×2 (05:41→19:57)
[2016-10-26 06:17] LABS: ALBUMIN 2.1 g/dL (3.5-5.0); CALCIUM 9.9 mg/dL (8.8-10.2); MAGNESIUM 1.6 mg/dL (1.5-2.7); POTASSIUM 3.2 mmol/L (3.5-5.1); TOTAL BILIRUBIN 0.26 mg/dL (0.20-1.00); TOTAL PROTEIN 5.9 g/dL (6.3-8.3)
[2016-10-26 06:24] LABS: HEMATOCRIT 26.9 % (37.0-47.0); MCH 28.2 PG (27-31); MCHC 29.7 g/dL (33-37); MCV 94.7 FL (81-99); MPV 10.2 FL (7.4-10.4); RBC 2.84 XMIL (4.2-5.4)
[2016-10-26] MEDS: HUMALOG SUBQ SCH ×4 (06:24→20:13)
[2016-10-26] MEDS: SODIUM CHLORIDE 0.9% INJ SCH (08:00)
[2016-10-26] MEDS: PROTONIX IV SCH (08:00)
[2016-10-26] MEDS: DIFLUCAN 100 MG/NS 50 ML IV SCH ×2 (08:00→19:59)
[2016-10-26] MEDS ORDERED: MAGNESIUM SULFATE 2 GM/S.W.I. 50 ML IV ONE (09:12)
[2016-10-26] MEDS ORDERED: POTASSIUM CHLORIDE 40 MEQ/SWI 100 ML IV ONE (09:12)
--- NOTE | 2016-10-26 10:05 | Diag Imaging Result Document ---
PROCEDURE NAME: CHEST-PORTABLE - 10/26/2016 SINGLE FRONTAL RADIOGRAPH OF THE CHEST: COMPARISON: 10/25/2016. FINDINGS: ET tube is stable. Right PICC line is stable. NG tube projects below the diaphragm and out of the field of view. Inspiration is suboptimal. Bilateral infiltrates are unchanged. No new consolidations are identified. Cardiac silhouette is stable. IMPRESSION: Stable chest.
[2016-10-26 10:43] LABS: ALLEN TEST YES; BE 10.4 mmoll (-3.0-3.0); BLOOD TYPE ARTERIAL; DRAW SITE L RADIAL; METHB 1.9 % (0.0-1.5); O2(CT) 11.1 mL/dL (15.0-23.0); PO2(98.6) 54 mmHg (60-100); SAMPLE BLOOD; SAO2 90.5 % (95.0-100.0); THB 9.1 g/dL (11.5-17.4); pH(98.6) 7.42 (7.35-7.45)
[2016-10-26 10:46] LABS: MODALITY VENTILATOR; PCO2(98.6) 56 mmHg (35-45)
--- NOTE | 2016-10-26 11:56 | PROGRESS NOTE ---
DATE: 10/26/2016 SUBJECTIVE: Today, Ms. Waters's condition continues to be stable. Per the nursing staff, her night was uneventful. She continues to be intubated and she is not able to give interval history. OBJECTIVE: Vital Signs: Blood pressure is 131/67, pulse of 90, respirations 16, temperature is 99.9 degrees. General Examination: Ms. Waters is a 66-year-old, female. She is in bed, continued to be intubated, synchronizing well with the ventilator. She was on breathing trial. 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 Laboratory Data: WBC is 16.51, hemoglobin is 8, platelet count of 320,000. Chemistry: Sodium is 139, potassium is 3.2, chloride 97, bicarb is 31, creatinine is 2.3. Is and Os: The patient had a urine output of 4275 in the [place]. A chest x-ray this morning shows stable. Blood gases this morning just a while ago still continues to show remarkable hypoxemia, oxyhemoglobin 86.6 on just the BiPAP mode and a pCO2 of 56. ASSESSMENT: 1. Acute hypoxemic respiratory failure. Patient continues to be on the ventilator. Pending further pulmonary recommendations today if patient will be able to come of the ventilator. 2. Septic shock on presentation due to pneumonia. Patient is currently off the pressors and continues on vancomycin and cefepime. 3. Suspected vegetation on mitral valve. Questionable endocarditis. The patient is on antibiotic. Blood cultures are negative. There is a plan to have her do a transesophageal echocardiogram once she is more stable. 4. Candiduria. Patient is on fluconazole. 5. Angelic intertrigo. 6. Leukocytosis is kind of stable. 7. Acute on chronic kidney disease. The patient has good urine output. Creatinine is also improving. 8. Altered mental status, multifactorial. For now, the patient continues to be intubated so we will reassess her mentation when she is off the ventilator. 9. Status post cardiac arrest on presentation, noted. 10. Questionable anoxic brain injury. 11. Diabetes mellitus. Stable on insulin regimen.
[2016-10-26] MEDS: LOVENOX SUBQ SCH (14:13)
[2016-10-26] MEDS ORDERED: INSULIN PEN NEEDLES ONE (20:11)
[2016-10-26] MEDS: LANTUS SUBQ SCH (20:13)
[2016-10-26] MEDS: LACRI-LUBE OPH OINT BOTH EYES PRN (20:18)
--- NOTE | 2016-10-26 21:11 | PROGRESS NOTE ---
DATE: 10/26/2016 PRESENT ILLNESS: The patient remains intubated and sedated. She has an orotracheal and nasogastric tube in place. She has a PICC in her arm. The patient has a Angelic urinary tract infection' bibasilar pneumonia, bilateral groin infection and possible mitral valve endocarditis. MEDICATIONS: This is day 3 of vancomycin, fluconazole and cefepime. PHYSICAL EXAMINATION: Vital Signs: Temperature is 100 degrees, pulse 94, respirations 13, blood pressure 131/64. General: This is an ill-appearing middle-aged female. She is in no acute distress. Lungs: Clear to auscultation. Cardiovascular: Heart rate is regular. Abdomen: Soft and nontender. Extremities: The groin areas show no drainage or erythema. The PICC site in the patient's arm is not swollen or purulent. LAB AND X-RAY: Chest x-ray shows stable bilateral infiltrates. CBC today shows a white count which is increased a little bit to 16,510, hemoglobin 8, platelet count 320, 000. Patient's blood gases show a pH of 7.42, a PO2 of 54, pCO2 of 56. Creatinine is 2.3. The GFR is 26. ASSESSMENT AND PLAN: The patient has. 1. Bibasilar pneumonia. 2. Bilateral groin infection. 3. Possible mitral valve endocarditis. 4. A Angelic urinary tract infection. My plan is to continue the current antibiotics. Even though the patient's white count is a little bit higher, it is relatively early for the current group of antimicrobial agents the patient is on and it may take more time for the white count to decrease. COMORBIDITIES: Include obesity, diabetes mellitus, sleep apnea, and chronic obstructive pulmonary disease. Also when the patient is better transesophageal echocardiogram will need to be done. [facility]
[2016-10-27] MEDS: MORPHINE IV PRN ×3 (02:39→20:45)
[2016-10-27] MEDS: DUONEB (A & A) INH SCH ×6 (03:49→23:41)
[2016-10-27 04:40] LABS: ALBUMIN 2.4 g/dL (3.5-5.0); CALCIUM 10.1 mg/dL (8.8-10.2); MAGNESIUM 1.9 mg/dL (1.5-2.7); POTASSIUM 3.5 mmol/L (3.5-5.1); TOTAL BILIRUBIN 0.28 mg/dL (0.20-1.00); TOTAL PROTEIN 6.2 g/dL (6.3-8.3)
[2016-10-27 04:53] LABS: ALLEN TEST YES; BE 10.8 mmoll (-3.0-3.0); BLOOD TYPE ARTERIAL; DRAW SITE R RADIAL; METHB 1.4 % (0.0-1.5); O2(CT) 11.5 mL/dL (15.0-23.0); PO2(98.6) 63 mmHg (60-100); SAMPLE BLOOD; SAO2 95.5 % (95.0-100.0); SRATE 10 BPM; THB 8.9 g/dL (11.5-17.4); TVOL 500 mL; pH(98.6) 7.45 (7.35-7.45)
[2016-10-27 04:55] LABS: MODALITY VENTILATOR; PCO2(98.6) 52 mmHg (35-45)
[2016-10-27] MEDS: MAXIPIME 1 GM/NS 50 ML IV SCH ×2 (05:42→17:22)
[2016-10-27] MEDS: LASIX IV SCH (05:42)
[2016-10-27] MEDS: HUMALOG SUBQ SCH ×4 (06:00→20:43)
--- NOTE | 2016-10-27 08:08 | Diag Imaging Result Document ---
PROCEDURE NAME: CHEST-PORTABLE - 10/27/2016 SINGLE FRONTAL RADIOGRAPH OF THE CHEST: COMPARISON: 10/26/2016. FINDINGS: ET tube is in stable position. NG tube projects below the diaphragm and out of the field of view. Right PICC line is stable. Bilateral infiltrates are again noted. There may be marginal improvement on the right. No new consolidations are identified. Cardiac silhouette is stable. IMPRESSION: Questionable marginal improvement of infiltrate on the right. Otherwise, stable chest.
[2016-10-27] MEDS: DIFLUCAN 100 MG/NS 50 ML IV SCH ×2 (08:11→19:34)
[2016-10-27] MEDS: SODIUM CHLORIDE 0.9% INJ SCH (08:12)
[2016-10-27] MEDS: PROTONIX IV SCH (08:12)
--- NOTE | 2016-10-27 09:49 | EKG Report ---
Test Performed on : 10/27/2016 08:28:13 AM Test Reason : Done in ICU. Not ordered in [place] Blood Pressure : / mmHG Vent. Rate : 143 BPM Atrial Rate : 143 BPM P-R Int : 214 ms QRS Dur : 092 ms QT Int : 228 ms P-R-T Axes : 008 011 177 degrees QTc Int : 351 ms Sinus tachycardia. with 1st degree AV block. ST & T wave abnormality, consider lateral ischemia Abnormal ECG When compared with ECG of 17-OCT-2016 11:51, (Unconfirmed) DE interval has increased Vent. rate has increased BY [address] now depressed in Lateral leads Nonspecific T wave abnormality now evident in Inferior leads T wave inversion now evident in Lateral leads Confirmed by Juan Fletcher MD ([id number]) on 10/27/2016 10:22:44 AM
[2016-10-27] MEDS: LOVENOX SUBQ SCH (11:21)
[2016-10-27 11:51] LABS: ALLEN TEST YES; BE 12.4 mmoll (-3.0-3.0); BLOOD TYPE ARTERIAL; DRAW SITE R RADIAL; METHB 2.3 % (0.0-1.5); O2(CT) 10.8 mL/dL (15.0-23.0); PO2(98.6) 53 mmHg (60-100); SAMPLE BLOOD; pH(98.6) 7.46 (7.35-7.45)
[2016-10-27 11:53] LABS: MODALITY VENTILATOR; PCO2(98.6) 53 mmHg (35-45)
[2016-10-27] MEDS: D5W 1,000 ML IV SCH ×2 (12:20→15:10)
--- NOTE | 2016-10-27 13:33 | PROGRESS NOTE ---
DATE: 10/27/2016 SUBJECTIVE: Today Ms. Waters continues to be stable. She is able to open her eyes. She follows basic commands. She is able to nod her head that she is doing okay. OBJECTIVE: Vital signs: Blood pressure is 134/67, pulse of 90, respirations 17 , temperature is 98.4 degrees. Patient is saturating 100% on mechanical ventilator. General: Ms. Waters is a 66- year-old female. She is in bed. Continues to be intubated, synchronizing well with the ventilator. She just started on another weaning trial. Abdomen: Soft , distended but nontender. Extremities: No pedal edema. 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 She seems to understand and follow some basic commands. LABORATORY DATA: WBC: We do not have any CBC today. Chemistry: Sodium is 135 , potassium is 3.5, chloride 92, bicarb is 31, BUN is 46, creatinine is 2.2, which is a little improved from yesterday, which was 2.3. So far blood cultures have all been negative. A urine culture is Angelic albicans. CURRENT MEDICATIONS: 1. Cefepime 1 g q.12. 2. D5 at 50 mL/h. 3. Lovenox 30 mg subcutaneously. 4. Fluconazole 100 mg q.12. 5. Insulin glargine 40 mg at bedtime. 6. Sliding scale. 7. Vancomycin. ASSESSMENT AND PLAN: 1. Acute hypoxemic respiratory failure. Patient continues to be on ventilator. He is getting weaning trials on a daily basis. 2. Septic shock on presentation due to pneumonia. Patient was on pressors but has been off for the past 3 days. Currently on vancomycin and cefepime. 3. Suspected vegetation on mitral valve, questionable endocarditis. Blood cultures are negative. Patient continues to be on antibiotics. There is a plan for her to do a CRYSTAL when she is more stable per ID. 4. Candiduria. Patient is on fluconazole. 5. Angelic intertrigo, noted. 6. Acute on chronic kidney disease. Creatinine continues to improve. We will continue with the current therapy. Patient is being evaluated by nephrology as well. 7. Altered mental status. This looks multifactorial including sepsis as well as possible anoxic brain injury. We will not be able to assess very well the mentation until we have her off the ventilator. 8. Status post cardiac arrest on presentation, noted. 9. Questionable anoxic brain injury. 10. Diabetes mellitus. Stable on insulin regimen. 11. Obesity. Addendum: Checked back on patient later in afternoon. has been extubated. Seem to be doing ok. Might need Bipap at night. [facility]
--- NOTE | 2016-10-27 13:43 | PROGRESS NOTE ---
DATE: 10/27/2016 TIME SEEN: 0815. SUBJECTIVE: Ms. Waters remains arousable. Opens eyes only. Does not follow commands. OBJECTIVE: Vital signs: Her most recent vital signs, temperature of 100 degrees, blood pressure 134/72, heart rate 96, respirations 14. She remains mechanically ventilated at 30% FiO2. Last saturation of 96%. She has had 3190 in. She has had 2695 out per Weston catheter. Labs: This a.m., sodium 135, potassium 3.5, chloride 92, CO2 31, BUN 46, creatinine 2.2, glucose 190, anion gap 12, calcium 10, albumin 2.4, magnesium 1.9. White count previously on the 16.51 with a hemoglobin of 8. ABGs this a.m., pH 7.45, CO2 52, PO2 63, bicarb 33.3. PHYSICAL EXAMINATION: General: This is a 66-year-old female. She is currently resting in bed. She appears critically ill, though no acute distress. Skin: Warm and dry. HEENT: Normocephalic, atraumatic. Conjunctivae pale. She has HANNA, slightly constricted. Neck: Supple. Trachea midline. Unable to determine JVD. Cardiovascular: Regular rate and rhythm. She is without murmur or gallop. Lungs: She has faint scattered crackles bilateral posterior bases and upper anterior lobes. Suctioning no frothy white per ET tube. Abdomen: Soft, nontender, round, large. Bowel sounds positive, hypoactive. Extremities: Have 1+ lower extremity edema, right upper arm is greater than left. Lower extremities 1+. No clubbing or cyanosis. Integumentary: No rashes or lesions evident. Neurological: As mentioned above. ASSESSMENT AND PLAN: 1. Acute kidney injury. BUN and creatinine continue to slowly improve. No indications for any changes. Adequate urine out. We will continue to monitor. 2. Electrolytes. These are stable. 3. Acid-base balance. This remains stable. 4. Anemia. This remains low. No need for intervention at this time. 5. Respiratory failure with pneumonia and fever. She continues to be followed by primary care team and infectious disease. I would like to thank you for allowing us to follow with this patient. Seen, data reviewed, discussed with Amish Stokes on 10/27/16. I agree with the above assessment and plan of care. rg Dictated by BRODIE Frank for Migue Galeano MD [facility]
[2016-10-27] MEDS: LANTUS SUBQ SCH (20:44)
[2016-10-28] MEDS: DUONEB (A & A) INH SCH ×6 (03:40→23:22)
[2016-10-28 04:30] LABS: ALLEN TEST YES; BLOOD TYPE ARTERIAL; DRAW SITE R RADIAL; SAMPLE BLOOD
[2016-10-28 04:32] LABS: MODALITY BI PAP
--- NOTE | 2016-10-28 04:40 | PROGRESS NOTE ---
DATE: 10/27/2016 PRESENT ILLNESS: The patient has Angelic urinary tract infection, bibasilar pneumonia, bilateral groin infection and possible mitral valve endocarditis. She was able to be extubated today. MEDICATIONS: This is day 4 of treatment with vancomycin, fluconazole and cefepime. PHYSICAL EXAMINATION: Vital Signs: Temperature is 100.1 degrees, pulse 105, respirations 34, blood pressure 133/79. General: This is a somewhat ill-appearing middle-aged female. She is in no acute distress. Cardiovascular: Heart rate is regular and rapid. Lungs: Clear to auscultation. Abdomen: Soft and nontender. The patient's bilateral groin areas did not have an odor and there is no drainage. The patient has a PICC in her arm and it is not swollen or tender at the site. LAB AND X-RAY: Chest x-ray shows an improved infiltrates. The blood gases today showed a pH of 7.46, a PO2 of 53, a pCO2 of 53, creatinine of 2.2, GFR is 27 and an alkaline phosphatase of 171. ASSESSMENT AND PLAN: I plan to continue the patient's antibiotics for pneumonia, groin infection, urinary tract infection and possible endocarditis. In addition, I have ordered studies today for culture negative endocarditis including titers for Brucella, Q fever and Bartonella. COMORBIDITIES: Include obesity, diabetes mellitus, sleep apnea, COPD. When the patient is better, she will need a transesophageal echocardiogram.
[2016-10-28 05:12] LABS: BE 9.8 mmoll (-3.0-3.0); METHB 2.3 % (0.0-1.5); O2(CT) 10.3 mL/dL (15.0-23.0); PO2(98.6) 60 mmHg (60-100); SAO2 80.2 % (95.0-100.0); THB 9.5 g/dL (11.5-17.4); pH(98.6) 7.46 (7.35-7.45)
[2016-10-28 05:35] LABS: EOS% 6.3 % (0.0-10.0); HEMATOCRIT 30.8 % (37.0-47.0); HEMOGLOBIN 9.2 g/dL (12.0-16.0); IMM GRAN# 1.77 X1000 (0.0-0.04); LYMPH# 2.41 X1000 (1.2-3.4); LYMPH% 9.5 % (20.5-51.1); MANUAL DIFF NEEDED? YES; MCH 27.4 PG (27-31); MCHC 29.9 g/dL (33-37); MCV 91.7 FL (81-99); MONO# 1.67 X1000 (0.11-0.59); MONO% 6.6 % (1.7-9.3); MPV 10.2 FL (7.4-10.4); NEUT% 69.6 % (42.2-75.2); PLT 389 X1000 (130-400); RBC 3.36 XMIL (4.2-5.4)
[2016-10-28 05:38] LABS: PCO2(98.6) 49 mmHg (35-45)
[2016-10-28 06:12] LABS: CALCIUM 10.4 mg/dL (8.8-10.2); POTASSIUM 3.5 mmol/L (3.5-5.1)
[2016-10-28] MEDS: HUMALOG SUBQ SCH ×4 (06:19→20:27)
[2016-10-28] MEDS: MAXIPIME 1 GM/NS 50 ML IV SCH ×2 (06:19→17:33)
[2016-10-28 07:21] LABS: BANDS 4 % (0-1); LYMPHS 8 % (21-51); MONO 18 % (1-9)
[2016-10-28] MEDS: DIFLUCAN 100 MG/NS 50 ML IV SCH ×2 (07:50→19:29)
[2016-10-28] MEDS: VANCOMYCIN 1,500 MG in NS 250 ML IV SCH (08:48)
[2016-10-28] MEDS: SODIUM CHLORIDE 0.9% INJ SCH (08:48)
[2016-10-28] MEDS: PROTONIX IV SCH (08:48)
[2016-10-28] MEDS: MORPHINE IV PRN ×2 (08:50→17:42)
--- NOTE | 2016-10-28 08:58 | Diag Imaging Result Document ---
PROCEDURE NAME: CHEST-PORTABLE - 10/28/2016 AP PORTABLE CHEST: TIME: 0500 hours. FINDINGS: There is an NG tube with its tip below the diaphragm. There is a right PICC line with its tip in the superior vena cava. There is atelectasis in both lung bases, particularly the right. The latter was not present on 10/27/2016. There is also apparent fluid in the fissure on the right. IMPRESSION: Worsened atelectasis and pleural effusion on the right.
--- NOTE | 2016-10-28 09:39 | PROGRESS NOTE ---
DATE: 10/28/2016 SUBJECTIVE: Ms. Waters is on BiPAP. Appears to be breathing comfortably. OBJECTIVE: Temperature is 98.3, pulse 126, respirations 34, blood pressure 167/64. Lungs are clear in all lung morin anterolateral. Cardiovascular: Regular rhythm and rate without murmur or S3. Abdomen is soft. Skin is warm and dry. Good urine output. DIAGNOSTIC DATA: White count elevated at 25,240, hematocrit 30, platelet count 389,000. Chemistry shows sodium 131, potassium 3.5, chloride 89, BUN is 47, creatinine 2.1, blood sugars were 234, 219 and 212. ASSESSMENT: 1. Angelic urinary tract infection. 2. Bibasilar pneumonia. 3. Bilateral groin infection. 4. Possible mitral valve endocarditis. PLAN: 1. Continue present antibiotics. Her white count is elevated today. Dr. Muniz is following. Continue present antibiotics and may need to expand them. We will discuss with Dr. Muniz. 2. Diabetes mellitus type 2. Continue to follow with sliding scale. 3. Morbid obesity. 4. Obstructive sleep apnea. Suspect obesity hypoventilation syndrome. She will need at some point an transesophageal echocardiogram. Underlying COPD. She is off the ventilator and is on BiPAP at this time. 5. Review of her orders. She is still n.p.o. She is on cefepime 1 g q.12, vancomycin IV and Diflucan 100 mg q.12.
[2016-10-28] MEDS: D5W 1,000 ML IV SCH ×2 (10:59→11:22)
[2016-10-28] MEDS: LOVENOX SUBQ SCH (11:15)
--- NOTE | 2016-10-28 13:22 | PROGRESS NOTE ---
DATE: 10/28/2016 TIME SEEN: 0810. SUBJECTIVE: Ms. Waters is currently resting in bed. She is on BiPAP. She appears tachypneic. She does open her eyes randomly but does not follow commands. OBJECTIVE: Vital signs: Her most recent vital signs, temperature 98.3 degrees , blood pressure 165/91, heart rate 136, respirations are 32. She remains on 30% BiPAP. Last recorded saturation is 98%. She has had 2305 in. She has had 1525 out. She remains 1.2 L positive in the last 48 hours. Labs: This a.m., sodium 131, potassium 3.5, chloride is 89, CO2 29, BUN 47, creatinine 2.1, glucose 219. Her anion gap is 13, calcium 10.4. White count 25.24, hemoglobin 9.2, hematocrit 30.8 with a platelet count of 389,000. Her ABGs, pH 7.46, CO2 49, PO2 60, bicarb 32.2 on 30% BiPAP. Random vancomycin level of 22.4 this a.m. PHYSICAL EXAMINATION: General: This is a 66-year-old female. She is resting in bed. She appears chronically ill. She is in no acute distress. Skin: Warm and dry. HEENT: Normocephalic, atraumatic. Conjunctivae pale. She has HANNA. Again, pupils are slightly constricted. Neck: Supple. Trachea midline. Unable to determine JVD. Cardiovascular: Regular rate and rhythm. She is without murmur or gallop. Lungs: Clear to auscultation anteriorly. Equal excursion. Diminished breath sounds. Abdomen: Large, obese, soft, nontender. Positive bowel sounds present. Genitourinary: Weston catheter remains in place. Not inspected. Extremities: Continues with 1+ lower extremity edema. No clubbing or cyanosis. Right arm continues greater than left. Integumentary: No rashes or lesions evident. Neurological: Alert and oriented x1 as to person as mentioned above. ASSESSMENT AND PLAN: 1. Acute kidney injury. BUN and creatinine continue to slowly improve. No indications for any changes. Adequate urine out. 2. Electrolytes. Patient has mild hyponatremia. We will continue to monitor. No intervention today. 3. Acid-base balance. This remains stable. 4. Anemia. This remains stable. 5. Respiratory failure. Patient is now on BiPAP. She appears tachypneic. Will defer to the primary care team and dimensional engineer. I would like to thank you for allowing us to follow with this patient. Seen, data reviewed, discussed with Amish Stokes on 10/28/16. I agree with the above assessment and plan of care. rg Dictated by BRODIE Frank for Migue Galeano MD [facility]
[2016-10-28] MEDS: LANTUS SUBQ SCH (20:27)
[2016-10-29] MEDS: DUONEB (A & A) INH SCH ×6 (03:49→22:57)
[2016-10-29 05:09] LABS: ALLEN TEST YES; BE 9.4 mmoll (-3.0-3.0); BLOOD TYPE ARTERIAL; DRAW SITE R RADIAL; PO2(98.6) 75 mmHg (60-100); SAMPLE BLOOD; pH(98.6) 7.41 (7.35-7.45)
[2016-10-29 05:11] LABS: MODALITY BI PAP; PCO2(98.6) 57 mmHg (35-45)
[2016-10-29 05:42] LABS: ALBUMIN 2.1 g/dL (3.5-5.0); CALCIUM 10.1 mg/dL (8.8-10.2); POTASSIUM 3.5 mmol/L (3.5-5.1)
[2016-10-29] MEDS: MAXIPIME 1 GM/NS 50 ML IV SCH ×2 (06:13→18:41)
[2016-10-29] MEDS: HUMALOG SUBQ SCH ×4 (06:13→20:12)
[2016-10-29] MEDS: D5W 1,000 ML IV SCH (06:13)
--- NOTE | 2016-10-29 06:57 | CONSULTATION ---
DATE OF CONSULTATION: 10/28/2016 PRIMARY CARE PHYSICIAN: Dr. Anguiano. REQUESTING PHYSICIAN: Dr. Rogers. We appreciate this consult. CHIEF COMPLAINT: Methemoglobinemia. HISTORY OF PRESENT ILLNESS: Ms. Waters is a 66-year-old, morbidly obese, female, who was admitted to [facility] on 10/07/2016 through 10/10/2016 for left lower lobe pneumonia, COPD exacerbation, and acute kidney injury that resolved. The patient was discharged home but returned to the emergency room on 10/17/2016 with family as they stated she was not quite acting right. Upon arrival to [facility] the patient had a temperature of 101.9 degrees, white blood cell count was 13.57, with a BUN of 30, and a creatinine of 3.7. The patient was admitted to intensive care for leukocytosis, fever, urinary tract infection and acute kidney injury. The patient underwent blood gases today and was found to have a methemoglobin level of 2.3, and we are consulted for such. PAST MEDICAL HISTORY: 1. Hypertension. 2. COPD. 3. Diabetes mellitus type 2. 4. Obstructive sleep apnea. 5. Glaucoma. 6. Recent left lower lobe pneumonia requiring hospitalization. PAST SURGICAL HISTORY: One right eye surgery. FAMILY HISTORY: Noncontributory. SOCIAL HISTORY: The patient lives at home with her family. She has no history of tobacco, alcohol, or illicit drug use. MEDICATIONS UPON ADMISSION: 1. Allopurinol. 2. Bisoprolol fumarate. 3. Cleocin. 4. Losartan/hydrochlorothiazide. 5. Glucophage. 6. Reglan. ALLERGIES: The patient has no known drug allergies. LABORATORY DATA: Hemoglobin 11.2, hematocrit 30.8, white blood cell count is 25.24, platelets of 389,000. ANC is 17.53. On ABGs, methemoglobin level was found to be 2.3. Sodium 131, potassium 3.5, chloride 89, CO2 is 29, BUN 47, creatinine 2.1, and glucose is 212. IMAGING: Recent chest x-ray reveals right atelectasis and pleural effusion. REVIEW OF SYSTEMS: A 14 point review of systems was attempted and is unable to be obtained as patient is intubated on the ventilator and unresponsive. PHYSICAL EXAMINATION: Constitutional: Patient is lying supine in bed, intubated on Ventimask. She is minimally responsive. Vital Signs: At this time, temperature 100.5 degrees, blood pressure 175/100, heart rate is 135, respirations are 37, O2 saturation is 93% on Ventimask. HEENT: Normocephalic, atraumatic. Mucous membranes are pink and moist. Sclerae is anicteric. Extraocular movements intact. Neck: Supple. Lungs: With coarse breath sounds throughout. Chest expansion is equal bilaterally. CV: S1, S2 is heard without murmur, rub, or gallop. Abdomen: Soft, nondistended, nontender. Bowel sounds are positive in all quadrants. No rebound or guarding noted. Extremities: Without clubbing or cyanosis, but patient does have 1+ bilateral lower extremity edema. Dermatologic: No rashes, bruises, or lesions. Neurologic: The patient appears to be minimally responsive at this time. She does withdraw to pain in all 4 extremities. She is not following commands at this time. Assessment: 1. Methemoglobinemia with a methemoglobin level of 2.3 on ABGs, of questionable etiology, likely medication related versus secondary to sepsis. We will continue to follow levels closely. No workup indicated unless methemoglobin level continues to rise. 2. Angelic urinary tract infection/basilar pneumonia. Infectious Disease, Dr. Muniz, is following currently. She is currently on vancomycin and Maxipime. 3. Acute kidney injury with a creatinine of 2.1. Dr. Galeano is currently following. We will follow along with you and make further recommendations pending outcomes. We appreciate this consult. The above reflects the history, exam, assessment and plan of Dr. Roy. Dictated by BRODIE Dominguez for Gavin Roy MD [facility]
[2016-10-29] MEDS: DIFLUCAN 100 MG/NS 50 ML IV SCH ×2 (07:56→19:08)
[2016-10-29] MEDS: PROTONIX IV SCH (08:00)
--- NOTE | 2016-10-29 10:05 | Diag Imaging Result Document ---
PROCEDURE NAME: CHEST-PORTABLE - 10/29/2016 SINGLE FRONTAL RADIOGRAPH OF THE CHEST: COMPARISON: 10/28/2016. FINDINGS: Right PICC line is stable. NG tube projects below the diaphragm and out of the field of view. There is decreased opacity at the right lower lung zone as compared to the previous study suggesting improving atelectasis and/or infiltrate. Effusion has also likely improved. Otherwise, the diffuse interstitial opacities are approximately stable. Cardiac silhouette is stable. IMPRESSION: Interval improvement on the right.
--- NOTE | 2016-10-29 11:07 | PROGRESS NOTE ---
DATE: 10/29/2016 DATE AND TIME SEEN: 10/29/2016 at 0840 hours. SUBJECTIVE: Ms. Waters remains on BiPAP. She is less responsive today. MOST RECENT VITAL SIGNS: Temperature 98 degrees, blood pressure 175/85, heart rate 109, respirations 30. She remains on a 50% BiPAP. She has had 3255 in and 810 out per Weston catheter. LABS: Show sodium of 131, potassium 3.5, chloride is 89, CO2 29, BUN 48, creatinine 2.4, glucose 278. Anion gap of 13. Calcium 10.1, phosphorus 4, albumin 2.1. Previous hemoglobin on the twentieth is 9.2. ABGs indicate a pH of 7.4, CO2 57, PO2 75, bicarbonate 32.2 on 40% BiPAP this a.m. X-RAYS: She has had a chest x-ray. This does show that she has had some interval improvement in the right lower lung zone and questionable improvement to bilateral effusions. OBJECTIVE: General: On physical exam, this is a 66-year-old, female. She appears chronically ill. She is in no acute distress. Skin: Warm and dry. HEENT: Normocephalic, atraumatic. Conjunctiva is pale. She has HANNA. Pupils are slightly constricted as previous. Neck: Supple. Trachea midline. Unable to determine JVD. Cardiovascular: Regular rate and rhythm. She is without murmur or gallop. Lungs: Clear to auscultation anterior. She has some inspiratory wheezing to the upper right lobe posterior, diminished to the posterior bases bilateral. She remains on BiPAP as indicated. Abdomen: Large, obese soft, nontender. Positive bowel sounds. Genitourinary: Weston catheter remains in place. Not inspected. Extremities: Continues with 1+ lower extremity edema with the right arm greater than the left. Integumentary: No rashes or lesions evident. Neurological: Patient is less responsive today. She remains on BiPAP. ASSESSMENT AND PLAN: 1. Acute kidney injury. BUN and creatinine have slowly been improving in the last several days. It has worsened today in the context of her clinical situation of her respiratory status. We will make no changes today. We will have them to continue to monitor for her respiratory status. The patient is off the ventilator and is currently on BiPAP. 2. Electrolytes. These indicate hyponatremia. We will look at her intravenous fluids and see if there are any changes. 3. Acid-base balance. This remains stable. 4. Anemia. This remains low, but stable. 5. Respiratory failure. Primary care team and pulmonology continues to monitor and follow. I would like to thank you for allowing us to follow with this patient. Seen, data reviewed, discussed with Amish Stokes on 10/29/16. I agree with the above assessment and plan of care. rg Dictated by BRODIE Frank for Migue Galeano MD [facility]
[2016-10-29] MEDS: LOVENOX SUBQ SCH (11:28)
--- NOTE | 2016-10-29 11:32 | Diag Imaging Result Document ---
PROCEDURE NAME: HEAD W/O CONTRAST - 10/29/2016 CT HEAD WITHOUT CONTRAST: COMPARISON: 10/07/2016. FINDINGS: There is patchy low attenuation in the periventricular and subcortical white matter similar to the previous study suggesting advanced microangiopathy. 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 There is a focus of low density involving the left side of the mireya on a couple images that cannot be identified previously. Most likely this is an artifact, which is common in the posterior fossa. However, it would not be possible to completely exclude an acute pontine infarct. Please correlate clinically and follow up if necessary. No other discrete intracranial mass, mass effect, or intracranial hemorrhage is appreciated. There is no other sign of acute infarct, given the limited sensitivity of CT versus MRI. There has been interval development of moderate-sized mastoid air cell effusions. There is a small sphenoid sinus air-fluid level that has developed, likely due to the patient's NG tube. IMPRESSION: 1. Questionable very vague low density at the left side of the mireya that is probably artifactual. It would be difficult to completely exclude acute infarct. 2. Other stable chronic intracranial changes as described. 3. Development of bilateral mastoid air cell effusions. 4. This result was reported to the patient's ICU nurse at 1029 hours.
[2016-10-29 13:24] LABS: BRUCELLA AB SEE COMMENTS (())
--- NOTE | 2016-10-29 14:24 | PROGRESS NOTE ---
DATE: 10/29/2016 SUBJECTIVE: Ms. Waters is still on BiPAP. Does not respond. She is moving her upper and lower extremities. OBJECTIVE: Vital signs: Temperature 99.2, pulse 100, respirations 22, blood pressure 149/86. Lungs: Are clear in all lung morin. Cardiovascular: Exam regular rhythm and rate without murmur or S3. : Good urine output. LAB: Reviewed from the . White count was elevated 25,000 at that time. Electrolytes from today, sodium 131, potassium 3.5, chloride 89, bicarb 29, BUN 48, creatinine 2.4. Blood sugars 277, 278, 308, 296. CT of her head yesterday, questionable very vague low density in the left side of the mireya. It is probably artifactual. Difficult to completely exclude acute infarct. Stable intracranial changes. Development of bilateral mastoid air cell effusions. ASSESSMENT AND PLAN: 1. Acute kidney injury. BUN and creatinine has slowly been improving. Continue present treatment and support. 2. Electrolytes, acid base. Anemia stable. 3. Respiratory failure. Able to wean her off the vent. She is on BiPAP. 4. Diabetes mellitus type 2. Continue sliding scale. 5. Recent left lower lobe pneumonia which had been treated. Reviewed orders. I do not see any changes at this point. Still on cefepime and vancomycin.
--- NOTE | 2016-10-29 16:02 | PROGRESS NOTE ---
DATE: 10/29/2016 PRESENT ILLNESS: Patient has Angelic urinary tract infection, bibasilar pneumonia, bilateral groin infection, some type of skin disease, and possible mitral valve endocarditis. MEDICATIONS: This is day 7 of treatment with cefepime and day 11 of treatment with fluconazole and vancomycin. PHYSICAL EXAMINATION: Vital Signs: Temperature is 99.2 degrees, pulse is 101, respirations 22, blood pressure 149/86. General: This is an ill-appearing, middle-aged female. She is wearing a BiPAP mask. She did move her legs while I was in her room. Lungs: There were scattered rhonchi bilaterally. Cardiovascular: Heart rate was regular and rapid. Abdomen: Soft and nontender. Integument: Patient had widespread scaling areas. I did not see any erythema and no purulence. Both groin areas are not draining and there is no odor. LAB AND X-RAY: A CT scan of the head showed questionable acute infarct. Also there were mastoid sinus effusions. Chest x-ray shows improved infiltrate. Lab studies show a CBC with a white count of 25,240, hemoglobin 9.2, and 389,000 platelets. Blood gases showed a pH of 7.41, a PO2 of 75, and a pCO2 of 57. Creatinine is 2.4 and GFR is 25. ASSESSMENT AND PLAN: The patient is being treated for urinary tract infection, pneumonia, possible mastoiditis, possible mitral valve endocarditis and cutaneous lesions, including bilateral groin infections. My plan would be to continue with the current antimicrobial regimen consisting of vancomycin, cefepime and fluconazole. The patient's comorbidities include obesity, diabetes mellitus, sleep apnea, chronic obstructive pulmonary chronic obstructive pulmonary disease. If the patient gets better, then transesophageal echocardiogram to determine if there is actual endocarditis going on or some other mass lesion involving the mitral valve.
--- NOTE | 2016-10-29 19:01 | CONSULTATION ---
DATE OF CONSULTATION: 10/29/2016 HISTORY OF PRESENT ILLNESS: Ms. Waters is 66 years old. She was admitted a few weeks ago with pneumonia. She spent some time intubated, mechanically ventilated, heavily sedated. As she improved, sedation was reduced and she was extubated. There is report that she was following some commands a few days ago. She has been less responsive in the last day or 2. Current medication list includes p.r.n. morphine dosed 2 mg several times daily. I do not see anything else on the current list that likely would contribute to encephalopathy. She is managed with BiPAP now and pCO2 is in the high 50s. She has had some mildly elevated temperatures, but nothing above 100 in approximately 24 hours. PAST MEDICAL HISTORY: There is past history of hypertension, COPD, diabetes mellitus, sleep apnea, glaucoma. She was in the hospital recently for left lower lobe pneumonia and had respiratory failure this admission. I do not see anything in recorded history regarding previous neurologic events. DIAGNOSTIC STUDIES: Noncontrast CT of the head last month showed diffuse micro ischemic change, patchy low-attenuation throughout with additional left thalamic lacunar lesion. Scan done earlier today shows those findings plus "questionable, very vague low-density" in the left mireya. NEUROLOGIC EXAM: On exam, Ms. Waters is supine and poorly responsive. With vigorous noxious stimulation, she used her left arm purposefully, moved both legs and turned her head slightly. She did not move her right arm. She has full lateral eye movement with passive head turning. Left pupil reacts to bright light. Right pupil is occluded. Corneal reflex is diminished on the right and brisk on the left. I do not see any definite facial motility asymmetry. There is no meningismus. Plantar response is silent bilaterally. Reflexes are absent at the ankles bilaterally. Tone is equal in the limbs. IMPRESSION: 1. Mostly global encephalopathy, poorly responsive, uncertain etiology. This may be toxic/metabolic. I do not have clear understanding of her previous cognitive function, but in light of the CT findings and her recent medical history, mild cognitive impairment may have been present and that would predispose her to encephalopathy with relatively minor toxic or metabolic disturbance. I do not see evidence of increased intracranial pressure or EDITOR NEWSPAPER infection to account for her poor responsiveness. She has been receiving morphine here, but probably has developed good tolerance for that and I do not think her morphine dosing is producing major impairment of consciousness. I do not have any urgent suggestion. Time will tell. 2. 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 The left thalamic or left pontine lesion could account for possible right hemiparesis, to explain the lack of right arm movement. Neither of these lesions would generally produce altered consciousness. She has risk factors for cerebrovascular ischemic problems. 3. There is clinical evidence of peripheral neuropathy, presumed diabetic neuropathy. I do not think this problem needs attention now. I do not have any urgent suggestion. We can follow her clinically and hope to see her improve. Thanks for asking me to see Ms. Waters. [facility]ITALL[facility]
[2016-10-29] MEDS: LANTUS SUBQ SCH (20:13)
[2016-10-30] MEDS: DUONEB (A & A) INH SCH ×6 (03:46→22:39)
[2016-10-30] MEDS: D5W 1,000 ML IV SCH (03:58)
[2016-10-30 04:26] LABS: ALLEN TEST YES; BE 10.5 mmoll (-3.0-3.0); BLOOD TYPE ARTERIAL; DRAW SITE R RADIAL; METHB 1.8 % (0.0-1.5); O2(CT) 12.2 mL/dL (15.0-23.0); PCO2(98.6) 42 mmHg (35-45); PO2(98.6) 96 mmHg (60-100); SAMPLE BLOOD; SAO2 99.5 % (95.0-100.0); pH(98.6) 7.52 (7.35-7.45)
[2016-10-30 04:32] LABS: MODALITY BI PAP
[2016-10-30] MEDS: MAXIPIME 1 GM/NS 50 ML IV SCH ×2 (05:07→17:50)
[2016-10-30 06:12] LABS: ALBUMIN 2.2 g/dL (3.5-5.0); CALCIUM 10.6 mg/dL (8.8-10.2); POTASSIUM 3.5 mmol/L (3.5-5.1)
[2016-10-30] MEDS: HUMALOG SUBQ SCH ×4 (06:19→22:16)
--- NOTE | 2016-10-30 06:42 | Diag Imaging Result Document ---
PROCEDURE NAME: CHEST-PORTABLE - 10/30/2016 PORTABLE CHEST: COMPARISON: Compared to 10/29/2016. FINDINGS: A nasogastric tube overlies the esophagus and stomach. The heart is enlarged. There are increased interstitial markings consistent with pulmonary edema. No definite change compared to the prior study. No pleural effusions identified. IMPRESSION: No interval improvement.
[2016-10-30] MEDS: PROTONIX IV SCH (08:30)
[2016-10-30] MEDS: DIFLUCAN 100 MG/NS 50 ML IV SCH ×2 (08:30→19:59)
[2016-10-30] MEDS: SODIUM CHLORIDE 0.9% INJ SCH (08:30)
--- NOTE | 2016-10-30 09:42 | PROGRESS NOTE ---
DATE: 10/30/2016 SUBJECTIVE: She is still on BiPAP and did not really interact today. OBJECTIVE: Vital signs: Blood pressure 179/91, heart rate 108, respirations 26. Afebrile. Intake and output: Intake 2.4 L. Output 1.2 L. General: No acute distress. Skin: Warm and dry. Scaling on the face. HEENT: Conjunctivae are pink. Neck: Neck veins are not appreciated. Heart: Regular. Lungs: Have equal breath sounds. No crackles. Abdomen: Obese and soft. Bowel sounds are present. Extremities: Have minimal edema except in the upper extremity on the right. No clubbing or cyanosis. LABORATORY DATA: Sodium 129, potassium 3.5, chloride 89, bicarbonate 28, BUN 48, creatinine 2.6. Hemoglobin 9.2. IMPRESSION AND PLAN: Acute kidney injury. Little change in her labs over the last week. Urine output is acceptable, though she has been in positive fluid balance. Her exam does not particularly support volume overload. She does have some increased markings suggesting pulmonary edema, however. As such, we will continue diuretic therapy today and observe her response.
--- NOTE | 2016-10-30 09:53 | PROGRESS NOTE ---
DATE: 10/30/2016 SUBJECTIVE: Ms. Waters did not open her eyes. She does seem to try and respond a little bit when you touch her or shake her. She has not vocalized any words. She has moaned a couple times. OBJECTIVE: Vital Signs: Temperature 98.8 degrees. Pulse 108. Respirations 16. Blood pressure 179/91. Lungs: Clear in all lung morin. Cardiovascular: Regular rhythm and rate without murmur or S3. Abdomen: Soft. Skin: Warm and dry. INTAKE AND OUTPUT: Good urine output, over 1000 mL an hour. LABORATORY DATA: White count 25,240. Hematocrit 30. Platelet count 389,000. Sodium 129. Potassium 3.5. Chloride 89. Bicarb 28. BUN 48. Creatinine 2.6. Blood sugars 254, 228, 239, 264. Albumin was 2.2. ASSESSMENT AND PLAN: 1. She is on vancomycin and cefepime, will continue those for now. I have her on fluconazole as well. The white count is a little more elevated today. I do not know if we need to re- culture. Will continue present regimen of antibiotics. 2. Respiratory status improved off the ventilator, seems to be having good air exchange. 3. Neurologically, still lethargic. I do not find any focal neurologic deficits. She has been moving all extremities spontaneously. I think that is encouraging. 4. Diabetes mellitus type 2. Continue present insulin. 5. She is getting Lasix 100 mg IV q.12 hours. Renal function improving, which is encouraging. Serum creatinine 2.6. Continue present regimen.
[2016-10-30] MEDS: LASIX IV SCH ×2 (10:02→22:17)
[2016-10-30] MEDS: LOVENOX SUBQ SCH (11:36)
--- NOTE | 2016-10-30 13:56 | PROGRESS NOTE ---
DATE: 10/30/2016 Ms. Waters looks about the same. With moderate stimulation she squirmed moving legs and left arm but I did not see her move the right arm. She has lateral eye movement with passive head turning. She did not sustain alertness or follow commands. I do not have any new suggestion from neurologic standpoint. 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 Thanks for allowing me to follow Ms. Waters.
--- NOTE | 2016-10-30 18:00 | PROGRESS NOTE ---
DATE: 10/30/2016 SUBJECTIVE: Ms. Waters seems to respond, open her eyes. She is still not talking. She is on BIPAP at the present time. OBJECTIVE: Moving all extremities. Vital Signs: Temperature 98. Pulse 76. Respirations 20. Blood pressure 149/65. Hemodynamically looks good. Urine output was over a liver. LABORATORY: Reviewed from yesterday, still had elevated white count, blood count looks okay, platelets are okay. ASSESSMENT AND PLAN: Appears to still be a little toxic, battling infection. Dr. Fong is following. Looks about the same with moderate stimulation she squirms, moves legs, and left arm but did not see her move right arm. According to Dr. Fong, lateral eye movement, passive head turning. She did not sustain alertness or follow commands. We may have to repeat a brain scan. Continue present management.
[2016-10-30] MEDS: LANTUS SUBQ SCH (22:17)
[2016-10-30] MEDS: VANCOMYCIN 1,500 MG in NS 250 ML IV SCH (22:17)
[2016-10-30] MEDS ORDERED: INSULIN PEN NEEDLES ONE (22:29)
[2016-10-31] MEDS: D5W 1,000 ML IV SCH ×3 (03:05→19:29)
[2016-10-31] MEDS: DUONEB (A & A) INH SCH ×6 (03:33→23:00)
[2016-10-31 04:48] LABS: ALLEN TEST YES; BE 11.8 mmoll (-3.0-3.0); BLOOD TYPE ARTERIAL; DRAW SITE R RADIAL; METHB 1.7 % (0.0-1.5); O2(CT) 14.8 mL/dL (15.0-23.0); PO2(98.6) 50 mmHg (60-100); SAMPLE BLOOD; SAO2 84.8 % (95.0-100.0); THB 13.1 g/dL (11.5-17.4); pH(98.6) 7.43 (7.35-7.45)
[2016-10-31 04:50] LABS: MODALITY BI PAP; PCO2(98.6) 58 mmHg (35-45)
[2016-10-31] MEDS: MAXIPIME 1 GM/NS 50 ML IV SCH ×2 (05:18→17:35)
[2016-10-31] MEDS: HUMALOG SUBQ SCH ×4 (06:39→21:11)
[2016-10-31 07:13] LABS: ALBUMIN 2.5 g/dL (3.5-5.0); CALCIUM 10.8 mg/dL (8.8-10.2)
[2016-10-31] MEDS: DIFLUCAN 100 MG/NS 50 ML IV SCH ×2 (08:34→19:29)
[2016-10-31] MEDS: LASIX IV SCH ×2 (08:35→21:11)
[2016-10-31] MEDS: SODIUM CHLORIDE 0.9% INJ SCH (08:35)
[2016-10-31] MEDS: PROTONIX IV SCH (08:35)
--- NOTE | 2016-10-31 08:37 | Diag Imaging Result Document ---
PROCEDURE NAME: CHEST-PORTABLE - 10/31/2016 PORTABLE CHEST X-RAY: COMPARISON: 10/30/2016. FINDINGS: Stable nasogastric tube. Stable cardiomegaly and pulmonary vascular congestion. Stable ill-defined bilateral infiltrates suggesting pulmonary edema. IMPRESSION: No change from prior.
[2016-10-31] MEDS ORDERED: MAGNESIUM SULFATE 2 GM/S.W.I. 50 ML IV ONE (08:48)
[2016-10-31] MEDS ORDERED: POTASSIUM CHLORIDE 40 MEQ/SWI 100 ML IV ONE (08:48)
--- NOTE | 2016-10-31 09:23 | PROGRESS NOTE ---
DATE: 10/31/2016 SUBJECTIVE: She looks at me with verbal stimuli; no other interaction. OBJECTIVE: Vital Signs: Blood pressure 148/92, heart rate 96, respirations 21, afebrile. Intake 2.6 L. Output 3.1 L. General: Remains on BiPAP. No acute distress. Skin: Warm and dry. Conjunctivae are pink. Neck: Neck veins not appreciated. Heart: Regular. No gallops. Lungs: Have equal breath sounds with rhonchi. Abdomen: Soft, nontender. Bowel sounds are present. Extremities: Have minimal edema, limited really to the right upper extremity. No clubbing or cyanosis. LABORATORY DATA: Sodium 134, potassium 3.0, chloride 90, bicarbonate 31, BUN 47, creatinine 2.7, calcium 10.8 with an albumin of 2.5. IMPRESSION: 1. Acute kidney injury. No improvement in her chemistries over the last several days. We have been diuresing her modestly in that period of time. No changes. 2. Volume status: Chest x-ray with pulmonary edema. She has been in positive fluid balance until the last 24 hours during which time, we have been giving furosemide. Observe her response. 3. Electrolytes: Hypercalcemia has developed. The reason for this is not obvious. It may be simply immobilization. Observe.
--- NOTE | 2016-10-31 09:31 | PROGRESS NOTE ---
DATE: 10/31/2016 SUBJECTIVE: She does open her eyes and she was responding some apparently last night to the nurses. So, overall better. Breathing appears comfortable. No sign of distress or pain.Vital signs: Temperature 98.5 degrees, pulse 99, respirations 23, blood pressure 160/95. Lungs: Clear anterolateral Cardiovascular: Regular rhythm and rate without murmur or S3. Abdomen: Soft, nontender. Skin: Warm and dry. Urine output a little over 2 L. LAB: White count still elevated 25,240, hematocrit 30, platelet count 389,000. Sodium 134, potassium 3.0, chloride 90, bicarb 31, BUN 47, creatinine 2.7. Blood sugar is 264, 253 and 224. A chest x-ray from this morning: No change from prior. Stable nasogastric tube. Stable cardiomegaly and pulmonary vascular congestion was stable. Ill-defined bilateral infiltrates suggesting pulmonary edema. ASSESSMENT AND PLAN: 1. Respiratory failure. Improving. Gas exchange, air exchange improving. 2. Lethargy. I do not see a definitive focal neurologic deficit. Question on whether, I think, the left arm is moving much. Continue to monitor. Appreciate Neurology's help. 3. Diabetes mellitus type 2. 4. Persistent leukocytosis. 5. History of pneumonia in the past. Continue present antibiotics. 6. Review of orders: Right now getting Lasix 100 mg q.12 hours, cefepime 1 g q.12 hours. On low- dose Lovenox for DVT prophylaxis, vancomycin IV q.60 hours, Protonix 40 mg IV q.24 hours, fluconazole 100 mg q.12 hours. I do not see any change right now. 7. We are treating her for Angelic urinary tract infection, bibasilar pneumonia and bilateral groin infection, some type of the skin disease, possible mitral valve endocarditis. So, we will continue present antibiotics. At some point, we will need to get an esophageal echo and make sure whether she has vegetations. Clinically, she seems to be improving a bit slowly and still persistent leukocytosis.
[2016-10-31] MEDS: LOVENOX SUBQ SCH (11:02)
[2016-10-31] MEDS: MORPHINE IV PRN ×2 (11:39→21:12)
--- NOTE | 2016-10-31 12:50 | PROGRESS NOTE ---
DATE: 10/31/2016 Ms. Waters is a little bit more responsive for me today. She opened her eyes, looked at me, followed simple commands including holding up 2 fingers. She continues to move her left arm more vigorously than the right, but she definitely did move her right arm on purpose, and she held up 2 fingers with the right hand when commanded. I do not have any new suggestion right now from a neurologic standpoint. I hope she will continue to improve with time. Thanks for asking me to see Ms. Waters.
--- NOTE | 2016-10-31 15:56 | PROGRESS NOTE ---
DATE: 10/31/2016 PRESENT ILLNESS: The patient has a Angelic urinary tract infection, bibasilar pneumonia and a diffuse skin disease and finally, possible mitral valve endocarditis. MEDICATIONS: This is day 9 of treatment with cefepime and day 13 treatment with fluconazole and vancomycin. PHYSICAL EXAMINATION: Vital Signs: Temperature is 98.5 degrees, pulse 102, respirations 28, blood pressure 167/77. General: This is an ill-appearing, middle-aged female. Right now, she has a BiPAP mask on. Neurologic: She did not respond to verbal stimuli during my exam, she did not move her extremities. Lungs: There were bilateral rhonchi. Cardiovascular: Heart rate was regular. Abdomen: Soft and nontender. Integument: There was a diffuse scaling rash. LAB AND X-RAY: The laboratory studies the only one that she had for today were blood gases which showed a pH of 7.43, a PO2 of 50, and a pCO2 of 58. The patient did have a chest x-ray done today and it showed stable cardiomegaly and pulmonary venous congestion and ill-defined bilateral infiltrates. COMORBIDITY: Includes she is obese, she has diabetes mellitus, sleep apnea, chronic obstructive pulmonary disease. If the patient gets better then she will need a transesophageal echocardiogram.
[2016-10-31] MEDS: LANTUS SUBQ SCH (21:12)
[2016-10-31] MEDS: LACRI-LUBE OPH OINT BOTH EYES PRN (21:13)
[2016-11-01] MEDS: DUONEB (A & A) INH SCH ×6 (03:00→23:30)
[2016-11-01] MEDS: MORPHINE IV PRN ×2 (03:12→07:46)
[2016-11-01 04:54] LABS: ALLEN TEST YES; BE 14.3 mmoll (-3.0-3.0); BLOOD TYPE ARTERIAL; DRAW SITE R RADIAL; METHB 1.6 % (0.0-1.5); O2(CT) 12.9 mL/dL (15.0-23.0); PO2(98.6) 56 mmHg (60-100); SAMPLE BLOOD; SAO2 89.6 % (95.0-100.0); THB 10.7 g/dL (11.5-17.4); pH(98.6) 7.39 (7.35-7.45)
[2016-11-01 04:57] LABS: MODALITY BI PAP; PCO2(98.6) 69 mmHg (35-45)
[2016-11-01] MEDS: MAXIPIME 1 GM/NS 50 ML IV SCH ×2 (05:49→17:33)
[2016-11-01 05:54] LABS: MANUAL DIFF NEEDED? NO
[2016-11-01] MEDS: HUMALOG SUBQ SCH ×4 (06:06→20:26)
[2016-11-01 06:18] LABS: BASO% 0.4 % (0.0-0.8); EOS# 1.88 X1000 (0.0-0.7); HEMATOCRIT 28.9 % (37.0-47.0); HEMOGLOBIN 8.7 g/dL (12.0-16.0); IMM GRAN# 0.14 X1000 (0.0-0.04); IMM GRAN% 0.9 % (0.0-0.5); LYMPH# 1.36 X1000 (1.2-3.4); LYMPH% 8.7 % (20.5-51.1); MCH 27.9 PG (27-31); MCHC 30.1 g/dL (33-37); MCV 92.6 FL (81-99); MONO# 1.02 X1000 (0.11-0.59); MONO% 6.5 % (1.7-9.3); MPV 10.9 FL (7.4-10.4); NEUT% 71.5 % (42.2-75.2); PLT 382 X1000 (130-400); RBC 3.12 XMIL (4.2-5.4)
[2016-11-01 06:23] LABS: ALBUMIN 2.7 g/dL (3.5-5.0); CALCIUM 11.6 mg/dL (8.8-10.2); MAGNESIUM 2.2 mg/dL (1.5-2.7); POTASSIUM 3.1 mmol/L (3.5-5.1); TOTAL BILIRUBIN 0.41 mg/dL (0.20-1.00); TOTAL PROTEIN 6.5 g/dL (6.3-8.3)
[2016-11-01] MEDS: DIFLUCAN 100 MG/NS 50 ML IV SCH (07:46)
--- NOTE | 2016-11-01 08:55 | Diag Imaging Result Document ---
PROCEDURE NAME: CHEST-PORTABLE - 11/01/2016 PORTABLE CHEST X-RAY: COMPARISON: 10/31/2016. FINDINGS: Stable nasogastric tube and right PICC line. Stable cardiomegaly. Stable ill-defined bilateral infiltrates, most likely pulmonary edema. IMPRESSION: No change from prior.
[2016-11-01] MEDS: PROTONIX IV SCH (09:42)
[2016-11-01] MEDS: SODIUM CHLORIDE 0.9% INJ SCH (09:42)
[2016-11-01] MEDS ORDERED: NS 1,000 ML IV SCH (10:30)
--- NOTE | 2016-11-01 10:53 | PROGRESS NOTE ---
DATE: 11/01/2016 SUBJECTIVE: On BiPAP. Right eye looks a little irritated with some subconjunctival bleeding appreciated in the right lateral eye, a little bit of swelling. I suspect that is from irritation from the BiPAP. OBJECTIVE: General: On exam today, she is moving her right arm and both legs with questionable left arm movement. I can get her to open her eyes after stimulation. Vital Signs: Temperature 98.0 degrees. Pulse 98. Respirations 22. Blood pressure 190/94. Lungs: Clear in all lung morin. Cardiovascular: Regular rhythm and rate without murmur or S3. Abdomen: Soft. Skin: Warm and dry. INTAKE AND OUTPUT: Urine output above 3 L. LABORATORY AND X-RAY DATA: White count 15,630. Hematocrit 28. Platelet count 382,000. Sodium 134. Potassium 3.1. Chloride 98. Bicarb 33. BUN 46. Creatinine 2.6. Blood sugar 142, 151, 281. Chest x-ray from today: No change, stable nasogastric tube, right PICC line in place, stable cardiomegaly, stable ill-defined bilateral infiltrates and likely pulmonary edema. Lab review from today, creatinine stable at 2.6 ASSESSMENT AND PLAN: 1. We are treating for possible Angelic urinary tract infection, bibasilar pneumonia, diffuse skin disease, and possible mitral valve endocarditis. Continue present antibiotics and fluconazole. This is day 10 of cefepime and day 13 of fluconazole and vancomycin. 2. Diabetes mellitus. Sugars under fairly good control. 3. Neurologically, I do not see a whole lot of improvement. She does open her eyes and follow simple commands, holding up 2 fingers. It is her left arm she is moving more vigorously than her right but she definitely did move her right arm on purpose and she held up 2 fingers of right hand on command. So, we will continue present care. 4. Nutrition. Getting NG feeding. REVIEW OF ORDERS: I do not see anything changed at this point. Looking back at the urine output, her urine output was marginal. It is about 500 mL. Chest x-ray does not show any pulmonary edema, so, I may see if we can go up on her fluids.
[2016-11-01] MEDS: LOVENOX SUBQ SCH (11:22)
[2016-11-01 11:32] LABS: ALLEN TEST YES; BLOOD TYPE ARTERIAL; DRAW SITE R RADIAL; METHB 1.9 % (0.0-1.5); O2(CT) 11.9 mL/dL (15.0-23.0); PO2(98.6) 73 mmHg (60-100); SAMPLE BLOOD; SAO2 96.2 % (95.0-100.0); THB 9.1 g/dL (11.5-17.4)
[2016-11-01 11:33] LABS: MODALITY BI PAP; PCO2(98.6) 66 mmHg (35-45)
--- NOTE | 2016-11-01 11:55 | PROGRESS NOTE ---
DATE: 11/01/2016 SUBJECTIVE: Ms. Waters is again not very interactive today. Her mental status seems to wax and wane. OBJECTIVE: Vital Signs: Blood pressure 190/94, heart rate 92, respirations 24, afebrile. Intake 2.9 L. Output 3.4 L. General Appearance: No acute distress. Skin: Warm and dry. Neck: Neck veins are still not appreciated. HEENT: Pupils are unequal conjunctivae are pink. Oropharynx is dry. CPAP mask in place. Heart: Regular, with a murmur. Lungs: Have equal breath sounds with few scattered crackles. Abdomen: Obese and soft. Extremities: Have no edema, except 1+ in the right arm. No clubbing or cyanosis. LABORATORY DATA: Sodium 134, potassium 3.1, chloride 88, bicarbonate 33. BUN 46, creatinine 2.6. Hemoglobin 8.7. IMPRESSION: 1. Acute kidney injury following cardiac arrest. Her creatinine has been slightly higher in the last few days, as we have been giving her diuretics. These will time-out today. Her chest x- ray still being read as having pulmonary edema. She is still requiring BiPAP and still has significant CO2 retention and hypoxemia. As such, I will continue the diuretics over the next 2 days despite her kidney function, and observe her response. 2. Electrolytes are acceptable. 3. Acid-base: She is again developing a contraction alkalosis.
[2016-11-01] MEDS: TEARISOL OPH SOLUTION RIGHT EYE PRN ×2 (17:33→20:27)
[2016-11-01] MEDS: LANTUS SUBQ SCH (20:26)
[2016-11-01] MEDS: LACRI-LUBE OPH OINT BOTH EYES PRN (20:27)
[2016-11-02 02:10] LABS: UR CREAT RANDOM 117.8 mg/dL (11-20)
[2016-11-02] MEDS: LACRI-LUBE OPH OINT BOTH EYES PRN ×5 (03:15→23:04)
[2016-11-02] MEDS: DUONEB (A & A) INH SCH ×6 (03:20→22:38)
[2016-11-02 05:02] LABS: ALLEN TEST YES; BE 15.5 mmoll (-3.0-3.0); BLOOD TYPE ARTERIAL; DRAW SITE R RADIAL; METHB 2.1 % (0.0-1.5); O2(CT) 12.1 mL/dL (15.0-23.0); PO2(98.6) 66 mmHg (60-100); SAMPLE BLOOD; SAO2 93.7 % (95.0-100.0); THB 9.5 g/dL (11.5-17.4); pH(98.6) 7.41 (7.35-7.45)
[2016-11-02 05:05] LABS: MODALITY BI PAP
[2016-11-02 05:07] LABS: PCO2(98.6) 67 mmHg (35-45)
[2016-11-02 05:37] LABS: ALBUMIN 2.5 g/dL (3.5-5.0); CALCIUM 11.4 mg/dL (8.8-10.2); POTASSIUM 3.4 mmol/L (3.5-5.1)
[2016-11-02] MEDS: MAXIPIME 1 GM/NS 50 ML IV SCH ×2 (06:05→17:10)
[2016-11-02] MEDS: HUMALOG SUBQ SCH ×4 (06:05→20:45)
[2016-11-02] MEDS: PROTONIX IV SCH (08:30)
[2016-11-02] MEDS: SODIUM CHLORIDE 0.9% INJ SCH (08:30)
[2016-11-02] MEDS: TEARISOL OPH SOLUTION RIGHT EYE PRN ×4 (08:30→23:04)
[2016-11-02] MEDS: VANCOMYCIN 1,500 MG in NS 250 ML IV SCH (08:30)
[2016-11-02] MEDS: MORPHINE IV PRN ×2 (09:46→20:46)
--- NOTE | 2016-11-02 09:52 | Diag Imaging Result Document ---
PROCEDURE NAME: CHEST-PORTABLE - 11/02/2016 PORTABLE CHEST: COMPARISON: 11/01/2016. FINDINGS: Stable right PICC line and nasogastric tube. Stable cardiomegaly. Stable pulmonary vascular congestion. Stable bilateral infiltrates/edema. IMPRESSION: No change from prior.
[2016-11-02] MEDS: LOVENOX SUBQ SCH (11:27)
--- NOTE | 2016-11-02 16:21 | PROGRESS NOTE ---
DATE: 01/03/2016 SUBJECTIVE: Ms. Waters is really about the same. She does not open her eyes or wake up for me. Concerned about the right eye with swelling and concern about possible ocular subluxation. I have discussed with the nurse practitioner and also with the nurse about this. Will see if we can get an client engagement manager to evaluate. At this point, I do not know if we need to try to tape the eye shut. OBJECTIVE: Vital signs: Temp 98.3 degrees, pulse 106, respirations 29, blood pressure 178/92. Lungs: Clear in all lung morin. Cardiovascular: Regular rhythm and rate without murmur or S3. Abdomen: Soft. Skin: Warm and dry. LAB: From yesterday reviewed. White count had come down a little bit to 15,630, hematocrit 28, platelet count 282,000. Chemistries today: Sodium 135, potassium 3.4, chloride 90, bicarb 33, BUN 50, creatinine 2.8. ASSESSMENT AND PLAN: 1. Acute kidney injury following cardiac arrest. Creatinine is slightly higher. Volume status appears to be okay. Still giving her diuretics. Her chest x-ray is still read as pulmonary edema and she still requires BiPAP. 2. Respiratory failure. Still requires BiPAP. Obstructive apnea. 3. Concerned about her right eye. Possibly ocular subluxation. We may need to tape that eye shut. Would like to see if we can get ophthalmology to evaluate. 4. Unknown infection. Appeared to present with sepsis. Continue her present antibiotics. I have stopped the antifungal. Lower skin rash and fungal dermatosis appears much better. 5. Still neurologically unchanged. Really not waking up. Does appear at times to move her extremities and seems to know what is going on.
[2016-11-02] MEDS: LANTUS SUBQ SCH (20:45)
[2016-11-03] MEDS: MORPHINE IV PRN ×2 (03:06→07:57)
[2016-11-03] MEDS: LACRI-LUBE OPH OINT BOTH EYES PRN (03:06)
[2016-11-03] MEDS: TEARISOL OPH SOLUTION RIGHT EYE PRN (03:06)
[2016-11-03] MEDS: DUONEB (A & A) INH SCH ×6 (03:34→22:52)
[2016-11-03 04:42] LABS: ALLEN TEST YES; BE 11.5 mmoll (-3.0-3.0); BLOOD TYPE ARTERIAL; DRAW SITE R RADIAL; PO2(98.6) 67 mmHg (60-100); SAMPLE BLOOD; pH(98.6) 7.36 (7.35-7.45)
[2016-11-03 04:45] LABS: MODALITY BI PAP; PCO2(98.6) 71 mmHg (35-45)
[2016-11-03 06:07] LABS: ALBUMIN 2.6 g/dL (3.5-5.0); CALCIUM 11.3 mg/dL (8.8-10.2); POTASSIUM 3.2 mmol/L (3.5-5.1)
[2016-11-03] MEDS: MAXIPIME 1 GM/NS 50 ML IV SCH ×2 (06:08→18:21)
[2016-11-03] MEDS: HUMALOG SUBQ SCH ×4 (06:08→20:35)
[2016-11-03] MEDS ORDERED: STERILE WATER INJ. INJ ONE ×2 (06:12→07:27)
[2016-11-03] MEDS ORDERED: CATHFLO IV ONE ×2 (06:12→07:27)
[2016-11-03] MEDS ORDERED: POTASSIUM CHLORIDE 10% LIQUID PO ONE (06:34)
[2016-11-03] MEDS: NS 1,000 ML IV SCH ×2 (07:12→16:16)
[2016-11-03 07:22] LABS: URINE SOURCE CATH
[2016-11-03 07:25] LABS: BILIRUBIN URINE NEGATIVE (NEGATIVE); BLOOD URINE LARGE (NEGATIVE); COLOR YELLOW; GLUCOSE URINE NEGATIVE (NEGATIVE); LEUKOCYTES URINE LARGE (NEGATIVE); NITRITE URINE NEGATIVE (NEGATIVE); PROTEIN URINE 200 mg/dL (NEGATIVE); SP GRAVITY URINE 1.016; TURBIDITY URINE TURBID (CLEAR); UROBILINOGEN URINE NORMAL (NORMAL)
[2016-11-03 07:26] LABS: URINE MICRO REVIEW NEEDED? YES
[2016-11-03 07:29] LABS: UR EPITHELIAL CELLS <10 /HPF (<10); URINE BACTERIA NEGATIVE /HPF; URINE RBC TNTC /HPF (<10); URINE WBC TNTC /HPF (<10)
[2016-11-03 07:38] LABS: URINE CASTS NONE SEEN; URINE CRYSTALS NONE SEEN; URINE SMALL ROUND CELLS NONE SEEN
[2016-11-03 07:39] LABS: URINE CULTURE NEEDED? YES
[2016-11-03] MEDS: PROTONIX IV SCH (08:06)
[2016-11-03] MEDS: SODIUM CHLORIDE 0.9% INJ SCH (08:06)
--- NOTE | 2016-11-03 08:28 | Diag Imaging Result Document ---
PROCEDURE NAME: CHEST-PORTABLE - 11/03/2016 PORTABLE CHEST X-RAY: COMPARISON: 11/02/2016. FINDINGS: Stable nasogastric tube and PICC line. Stable cardiomegaly and pulmonary vascular congestion. Stable patchy infiltrates/edema bilaterally. IMPRESSION: No change from prior.
--- NOTE | 2016-11-03 08:46 | PROGRESS NOTE ---
DATE: 11/03/2016 SUBJECTIVE: Not much change. No more interactive today. OBJECTIVE: Vital Signs: Blood pressure 172/94, heart rate 105, respirations 34, afebrile. Weight 115 kg. Intake 1.3 L. Output 580 mL. General: Minimally responsive. No acute distress. Skin: Warm and dry. She has skin changes in her intertriginous areas and on her face that are unchanged. HEENT: Her right eye is inflamed. Oropharynx is dry. Neck: Neck veins not appreciated. Heart: Irregular. Lungs: Have equal breath sounds. Shallow, a few crackles bilaterally. Abdomen: Obese and soft. Bowel sounds present. Extremities: Have no edema, except trace in the hands. No clubbing or cyanosis. LABORATORY DATA: Sodium 137, potassium 3.2, chloride 91, bicarbonate 33, BUN 56, and creatinine 3.3. IMPRESSION: 1. Acute kidney injury. Her BUN and creatinine have risen since we have been treating her with diuretics. Also, her respiratory status has progressively been worsening. From my perspective, though her chest x-ray is being read as pulmonary edema, I think that she has intravascular volume depletion. This is supported by her urine electrolytes. As such, I will give her back some IV fluids over the next 24-48 hours and observe her response. I expect she would do better if she was intubated again. I will leave that decision to pulmonary. 2. Electrolytes: Acceptable. We did give 1 dose of potassium today. 3. Acid-base: Her pH is normal at the expense of rising serum bicarbonate and high pCO2. See above.
--- NOTE | 2016-11-03 09:42 | PROGRESS NOTE ---
DATE: 11/03/2016 SUBJECTIVE: Still that this not arouse or wake up, not to touch, shaking, or voice. She does move her lower extremities and right arm spontaneously. Concerned about the right eye, as it is swollen and seems to be subluxed. Will discuss with [facility] today. We will try and tape that eye shut and begin some eyedrops. OBJECTIVE: Vital Signs: Exam today temp 98.2 degrees, pulse 108, respirations 28, blood pressure 170/82. Lungs: Clear in all lung morin. Cardiovascular: Regular rhythm and rate, without murmur or S3. Abdomen: Soft. Skin: Warm and dry. Genitourinary: Urine output about 300 mL. LAB: White count 15,630, hematocrit 28, platelet count 382,000 on the . Chemistries today revealed sodium 137, potassium 3.2, chloride 91, BUN 56, creatinine 3.3. Blood sugar 187, 217, 256. ASSESSMENT AND PLAN: Acute kidney injury following cardiac arrest. Creatinine continued to follow. Still giving her diuretics. Still appears to have some pulmonary edema on chest x-ray from today. No change from yesterday. Stable nasogastric tube, PICC line. Stable cardiomegaly pulmonary vasculature, congestion. Stable patchy infiltrates and edema bilaterally. Neurologically really unchanged. Concerned about her right eye. Appears to be ocular subluxation. It is red and looks like some drainage as well. We will see if I can talk to [facility].
[2016-11-03] MEDS: LOVENOX SUBQ SCH (11:15)
[2016-11-03 12:16] LABS: ALLEN TEST YES; BE 11.8 mmoll (-3.0-3.0); BLOOD TYPE ARTERIAL; DRAW SITE L RADIAL; METHB 1.5 % (0.0-1.5); PO2(98.6) 71 mmHg (60-100); SAMPLE BLOOD; SAO2 99.9 % (95.0-100.0); THB 7.5 g/dL (11.5-17.4); pH(98.6) 7.42 (7.35-7.45)
[2016-11-03 12:18] LABS: MODALITY BI PAP; PCO2(98.6) 58 mmHg (35-45)
[2016-11-03] MEDS: GENTAMICIN 0.3% OPH DROPS RIGHT EYE SCH ×2 (12:34→16:16)
--- NOTE | 2016-11-03 15:17 | PROGRESS NOTE ---
DATE: 11/03/2016 LOCATION: ICU bed 8. Ms. Waters is more sluggish today. I cannot get her to respond appropriately. She did not follow commands as she was doing a few days ago when I last saw her. Tone is equal in the arms and she did not move either arm purposefully. I do not see any new neurologic problem. No urgent suggestion today.
--- NOTE | 2016-11-03 17:07 | PROGRESS NOTE ---
DATE: 11/03/2016 PRESENT ILLNESS: The patient currently is being treated from an infectious disease point of view for pneumonia and possible mitral valve endocarditis. She has completed antifungal therapy for Angelic urinary tract infection. She also has a diffuse skin disease the etiology of which is uncertain to me. Finally her right eye is erythematous and has chemosis. MEDICATIONS: This is day 16 of vancomycin and day 12 of cefepime. PHYSICAL EXAMINATION: Vital Signs: Temperature is 97.8 degrees, pulse 99, respirations 21, blood pressure 139/68. General: This is an ill-appearing, middle-aged female. She has a wearing a BiPAP mask. She is obtunded. Integument: She has this diffuse crusting and scaling type of rash. Lungs: Clear to auscultation. Cardiovascular: Heart rate is regular. Abdomen: Soft and nontender. Neurologic: Patient is obtunded. She did not respond to verbal stimuli. LAB AND X-RAY: Chest x-ray shows bilateral patchy infiltrates and edema. Creatinine is 3.3 and the GFR is 17. Blood gases have a pH 7.42, pO2 71 and pCO2 58. No CBC for today. ASSESSMENT AND PLAN: I am going to continue the cefepime and vancomycin because the patient may have endocarditis and pneumonia. COMORBIDITIES: Include diabetes mellitus, sleep apnea, chronic obstructive pulmonary disease and obesity. If the patient gets better she will need a transesophageal echocardiogram. [facility]
[2016-11-03] MEDS ORDERED: NS 400 ML IV ONE (18:36)
[2016-11-03] MEDS: LANTUS SUBQ SCH (20:35)
[2016-11-04] MEDS: MORPHINE IV PRN ×3 (00:34→09:00)
[2016-11-04] MEDS: NS 1,000 ML IV SCH ×3 (03:16→23:44)
[2016-11-04] MEDS: DUONEB (A & A) INH SCH ×6 (03:26→23:49)
[2016-11-04 04:41] LABS: ALLEN TEST YES; BE 9.1 mmoll (-3.0-3.0); BLOOD TYPE ARTERIAL; DRAW SITE R RADIAL; METHB 1.9 % (0.0-1.5); O2(CT) 8.9 mL/dL (15.0-23.0); PO2(98.6) 90 mmHg (60-100); SAMPLE BLOOD; SAO2 99.5 % (95.0-100.0); THB 6.5 g/dL (11.5-17.4); pH(98.6) 7.31 (7.35-7.45)
[2016-11-04 04:42] LABS: MODALITY BI PAP
[2016-11-04 04:43] LABS: PCO2(98.6) 72 mmHg (35-45)
[2016-11-04] MEDS: MAXIPIME 1 GM/NS 50 ML IV SCH ×2 (05:08→17:13)
[2016-11-04 06:05] LABS: BASO% 0.4 % (0.0-0.8); EOS# 1.78 X1000 (0.0-0.7); EOS% 12.3 % (0.0-10.0); HEMATOCRIT 28.3 % (37.0-47.0); HEMOGLOBIN 8.1 g/dL (12.0-16.0); IMM GRAN% 0.7 % (0.0-0.5); LYMPH# 1.93 X1000 (1.2-3.4); LYMPH% 13.3 % (20.5-51.1); MANUAL DIFF NEEDED? NO; MCH 27.9 PG (27-31); MCHC 28.6 g/dL (33-37); MCV 97.6 FL (81-99); MONO# 1.24 X1000 (0.11-0.59); MONO% 8.5 % (1.7-9.3); MPV 10.7 FL (7.4-10.4); NEUT% 64.8 % (42.2-75.2); PLT 404 X1000 (130-400)
[2016-11-04] MEDS: HUMALOG SUBQ SCH ×4 (06:16→20:30)
[2016-11-04 06:46] LABS: ALBUMIN 2.4 g/dL (3.5-5.0); POTASSIUM 3.8 mmol/L (3.5-5.1)
--- NOTE | 2016-11-04 06:47 | Diag Imaging Result Document ---
PROCEDURE NAME: CHEST-PORTABLE - 11/04/2016 PORTABLE CHEST: COMPARISON: Compared to 11/03/2016. FINDINGS: No change in the right-sided PICC line or the nasogastric tube. The heart is mildly prominent. There is vascular distention. This is slightly more pronounced than on the prior exam. No pleural effusions identified. No consolidation. IMPRESSION: Overall worsening in the respiratory failure.
[2016-11-04] MEDS: SODIUM CHLORIDE 0.9% INJ SCH (08:27)
[2016-11-04] MEDS: GENTAMICIN 0.3% OPH DROPS RIGHT EYE SCH ×3 (08:27→17:13)
[2016-11-04] MEDS: PROTONIX IV SCH (08:27)
[2016-11-04] MEDS ORDERED: VERSED ONE (08:34)
[2016-11-04] MEDS ORDERED: QUELICIN ONE (08:34)
[2016-11-04] MEDS ORDERED: VERSED IV ONE (08:48)
[2016-11-04] MEDS ORDERED: QUELICIN IV ONE (08:49)
[2016-11-04] MEDS: DIPRIVAN 1% 100 ML IV SCH (09:46)
[2016-11-04 10:05] LABS: ALLEN TEST YES; BE 6.1 mmoll (-3.0-3.0); BLOOD TYPE ARTERIAL; DRAW SITE R RADIAL; METHB 1.4 % (0.0-1.5); O2(CT) 12.2 mL/dL (15.0-23.0); PO2(98.6) 116 mmHg (60-100); SAMPLE BLOOD; SAO2 99.4 % (95.0-100.0); SRATE 14 BPM; THB 8.9 g/dL (11.5-17.4); TVOL 600 mL; pH(98.6) 7.26 (7.35-7.45)
[2016-11-04 10:06] LABS: MODALITY VENTILATOR; PCO2(98.6) 77 mmHg (35-45)
--- NOTE | 2016-11-04 10:29 | PROGRESS NOTE ---
DATE: 11/04/2016 Ms. Waters looks about the same as yesterday. She is minimally responsive, groaning a little bit, turning her head a little bit in response to moderate stimulation. Limb tone remains equal in the arms. She has good lateral eye movement on the left. She did not wake up well enough to follow commands or communicate otherwise. No new thoughts from a neurologic standpoint today.
--- NOTE | 2016-11-04 11:12 | PROGRESS NOTE ---
DATE: 11/04/2016 SUBJECTIVE: Ms. Waters is currently resting in bed. She is now intubated. She was intubated at 8:50 this morning. She remains on 100% FiO2. She is now overriding the vent with spontaneous respirations shallow. OBJECTIVE: Vital Signs: Temperature 98.2 degrees, blood pressure 152/79, heart rate 98, respirations 24. She remains on 100% FiO2. Saturations are 100%. She has had 3490 in. She has had 370 out per Weston catheter. LABORATORY DATA: This a.m. sodium 139, potassium 3.8, chloride 96, CO2 31, BUN 61, creatinine 3.8. Glucose 175. Anion gap 12. Calcium 11, phosphorus 5.2, albumin 2.4. White count 14.5, hemoglobin 8.1, hematocrit 28.3, with a platelet count of 404,000. Her ABGs on 100% BiPAP prior to intubation was pH 7.31, CO2 72, PO2 90, bicarb 32. Chest x-ray this a.m. showed worsening of respiratory failure. No changes to pulmonary edema. Patient remains on vancomycin and Maxipime per antibiotics renally dosed. She continues with tube feedings as ordered. PHYSICAL EXAMINATION: General: This is a 66-year-old female. She is currently resting in bed. She appears chronically ill. No acute distress. Skin: Warm and dry. HEENT: Normocephalic, atraumatic. Conjunctiva is pale. She has HANNA. Mucous membranes are dry. Neck: Supple. Trachea midline. She has negative JVD. Cardiovascular: Regular rate and rhythm. She has diminished heart sounds. Slightly irregular this a.m. No murmur or gallop appreciated. Lungs: These are shallow on the vent. Faint crackles bilateral posterior. Remains on intubation with respiratory support. Abdomen: Obese soft, nontender. Tube feedings remain in place. Extremities: She has no edema with trace edema to the hands right greater than left. Integumentary: No rashes or lesions evident though the patient does have severe dryness to her skin, her face and her upper shoulder, areas or flaking. Neurological: The patient is resting. She is not opening her eyes. She is less interactive today. Unable to assist with exam. ASSESSMENT AND PLAN: 1. Acute kidney injury. Her BUN and creatinine have continued to rise. This is felt that it is more related to her respiratory status than fluid volume which is what has been read as an interpretation to her chest x-ray. The patient has been intubated this a.m. She continues with IV fluids of normal saline at 100 mL an hour. We will continue to monitor this and evaluate her labs in the a.m. 2. Electrolytes. These are acceptable. Patient continues with hypercalcemia. This is improved from yesterday. Again, this is felt secondary to patient's fluid volume deficit 3. Acid-base balance. Patient is alkalotic. Minimal anion gap noted today. 4. Anemia. This remains low but stable. I would to thank you for allowing us to follow with this patient. Data reviewed, discussed with Amish Stokes on 11/04/16. I agree with the above assessment and plan of care. rg Dictated by BRODIE Frank for Migue Galeano MD [facility]
[2016-11-04] MEDS: LOVENOX SUBQ SCH (11:16)
--- NOTE | 2016-11-04 11:47 | CONSULTATION ---
DATE OF CONSULTATION: 11/04/2016 CHIEF COMPLAINT: Respiratory failure. HISTORY OF PRESENT ILLNESS: This is a 66-year-old black female admitted on the with altered mental status. She apparently had pneumonia, required intubation, and was ventilated until the or . She was then extubated and they have tried to keep her off the ventilator but has failed and required re-intubation this morning. I have been asked then to place a tracheostomy tube in view of the fact that she has failed her trial off the ventilator and may require a long- term ventilation. PAST MEDICAL HISTORY: Her other medical problems include hypertension, COPD, type 2 diabetes, sleep apnea, and glaucoma. PAST SURGICAL HISTORY: Includes surgery to her right eye. FAMILY HISTORY: Noncontributory. SOCIAL HISTORY: She lives with her family. Denies tobacco or alcohol or drug use. MEDICATIONS: At home include allopurinol, bisoprolol, Cleocin, losartan/hydrochlorothiazide, Glucophage, Reglan. ALLERGIES: She has no known drug allergies. REVIEW OF SYSTEMS: Really unable to be obtained. Currently the patient is sedated on Diprivan. PHYSICAL EXAMINATION: General: She is asleep. Vital signs: Her temp is 98.2 degrees, heart rate is 98, respiratory rate is 24, sat by the ventilator, blood pressure is 152/79. Skin: She does have diffuse blistering on her skin. Neck: Her trachea is palpated easily. It is in the midline. Lungs: Bilateral breath sounds are present. Abdomen: Soft. Extremities: Has some peripheral edema is present. LABORATORY: Reveals a white count of 14,500, hemoglobin 8.1, hematocrit 28. PH 7.26, pCO2 77, PO2 116 on the ventilator with 100% FiO2. BUN 61, creatinine 3.8. ASSESSMENT: 1. Respiratory failure. 2. Renal failure. PLAN: The plan is a tracheostomy placement. Will plan for it tomorrow the .
--- NOTE | 2016-11-04 13:41 | PROGRESS NOTE ---
DATE: 11/04/2016 Ms. Waters is still unresponsive. We had to reintubate her last night. The plan is to get a trach for long-term intubation. OBJECTIVE: Temp 98.1 degrees, pulse 107, respirations 20, blood pressure 120/69. Lungs: Are clear in all lung morin. Cardiovascular: Regular rhythm and rate without murmur or S3. Abdomen: Soft. Skin is warm and dry. The right eye is taped shut. There is still swelling, redness and some drainage from that right eye. Urine output is still marginal. Yesterday 580 mL out. LABORATORIES: From today, white count 67207, hematocrit 28, platelet count 404,000. Sodium 139, potassium 3.8, chloride 96, bicarb 31, BUN 61, creatinine 3.8. Calculated osmolality 299. Albumin 2.4. ASSESSMENT AND PLAN: 1. Acute kidney injury. Her BUN and creatinine we are watching, continue to rise. Dr. Galeano feels like this is related to her respiratory status and fluid volume as what it has been read and interpretation of the chest x-ray. She was reintubated. Plan is to put a trach for long- term ventilation. 2. She presented with sepsis. Unsure of source of infection. Treating her for pneumonia, for soft tissue infection and for possible endocarditis. 3. Respiratory failure. Plan on doing tracheostomy and she was reintubated last night. 4. Neurologically she really has not changed in the last 4-5 days that I can tell. Dr. Jean is still following. Looks about the same. Minimally responsive, going a little bit, turning her head with a little bit response to moderate stimulation. He noted the limb tone remains equal in the arms. Has good lateral eye movement on the left. 5. Right eye with swelling, proptosis and subconjunctival bleeding. We will continue to give topical drops and to tape it shut. Hopefully it will improve with being off the BiPAP. At some point, may be able to do an esophageal echo and look and see if there is endocarditis as there is possible mitral valve endocarditis. I reviewed her orders. Continue her present medication. Had been requested about whether she is eligible for LTAC. I do not think at this time she is eligible to go. She is still very sick and family certainly is not comfortable with that at this point. So, continue cefepime 1 g q.12, vancomycin q.60 hours. Following her sugar. Looks like [place] [address].
--- NOTE | 2016-11-04 17:16 | PROGRESS NOTE ---
DATE: 11/04/2016 PRESENT ILLNESS: I am seeing the patient for pneumonia and possible mitral valve endocarditis. MEDICATIONS: This is day 17 for the vancomycin and day 13 for cefepime. PHYSICAL EXAMINATION: Vital Signs: Temperature is 100 degrees, pulse 127, respirations 19, blood pressure 120/70. General: This is an ill-appearing, middle-aged female. She is intubated and sedated at this time. Integument: Patient has a diffuse scaling type of rash. Lungs: Clear to auscultation. Cardiovascular: Heart rate was regular. Abdomen: Soft and nontender. Neurologic: The patient is sedated. LAB AND X-RAY: CBC today showed a white count of 14,510, hemoglobin 8.1 and platelet count 404,000. Arterial blood gases show a pH of 7.26, a pO2 of 116 and a pCO2 of 77. The creatinine was 3.8. GFR is 16. The chest x-ray done today shows vascular distention is slightly more prominent than on a prior chest x-ray. There is no pleural effusion or consolidation. ASSESSMENT AND PLAN: The patient currently is being treated for possible endocarditis and pneumonia. I plan to treat with cefepime and vancomycin for 6 weeks pending further studies on a mitral valve if they can be obtained. Patient's comorbidities include diabetes mellitus, sleep apnea, COPD, and obesity. The plan will be to get a transesophageal echocardiogram if the patient recovers.
[2016-11-04] MEDS: OFIRMEV 1000 MG/ISOTONIC SOLN 100 ML IV PRN (19:28)
[2016-11-04] MEDS: LANTUS SUBQ SCH (20:41)
[2016-11-04] MEDS: VANCOMYCIN 1,500 MG in NS 250 ML IV SCH (20:57)
[2016-11-05] MEDS: DUONEB (A & A) INH SCH ×6 (03:00→23:00)
[2016-11-05] MEDS: DIPRIVAN 1% 100 ML IV SCH ×4 (03:29→22:40)
[2016-11-05 04:53] LABS: ALLEN TEST YES; BE 2.6 mmoll (-3.0-3.0); BLOOD TYPE ARTERIAL; DRAW SITE R RADIAL; METHB 1.6 % (0.0-1.5); PCO2(98.6) 49 mmHg (35-45); PO2(98.6) 100 mmHg (60-100); SAMPLE BLOOD; SAO2 99.6 % (95.0-100.0); SRATE 14 BPM; TVOL 600 mL; pH(98.6) 7.37 (7.35-7.45)
[2016-11-05 04:55] LABS: MODALITY VENTILATOR
[2016-11-05] MEDS: MAXIPIME 1 GM/NS 50 ML IV SCH ×2 (05:55→17:14)
[2016-11-05] MEDS: HUMALOG SUBQ SCH ×4 (05:59→20:21)
[2016-11-05 06:07] LABS: ALBUMIN 2.2 g/dL (3.5-5.0); CALCIUM 10.3 mg/dL (8.8-10.2); POTASSIUM 4.2 mmol/L (3.5-5.1)
--- NOTE | 2016-11-05 08:21 | Diag Imaging Result Document ---
PROCEDURE NAME: CHEST-PORTABLE - 11/05/2016 ERECT AP PORTABLE CHEST: TIME: 0520 hours. FINDINGS: There is an endotracheal tube with its tip approximately 2 cm above the bambi. There is an NG tube, which appears to pass below the diaphragm. There is a right PICC line, with its tip in the right atrium. Compared to 11/04/2016, there may be slight improvement in the pulmonary edema, particularly over the right base. There continues to be some atelectasis in the right upper lobe. There is cardiomegaly. IMPRESSION: Slightly improved pulmonary edema.
[2016-11-05] MEDS: SODIUM CHLORIDE 0.9% INJ SCH (08:27)
[2016-11-05] MEDS: PROTONIX IV SCH (08:27)
[2016-11-05] MEDS: NS 1,000 ML IV SCH ×2 (08:27→17:54)
[2016-11-05] MEDS: GENTAMICIN 0.3% OPH DROPS RIGHT EYE SCH ×3 (08:28→16:09)
[2016-11-05] MEDS ORDERED: XYLOCAINE 1%/EPI 1:100,000 ONE (10:37)
[2016-11-05] MEDS ORDERED: NS 2,000 ML MISC PRN (11:01)
[2016-11-05] MEDS ORDERED: HEPARIN ONE ×3 (11:33→13:57)
[2016-11-05] MEDS ORDERED: NS 250 ML ONE (11:34)
--- NOTE | 2016-11-05 13:25 | PROGRESS NOTE ---
DATE: 11/05/2016 TIME SEEN: 10 a.m. SUBJECTIVE: Patient is currently intubated and sedated. OBJECTIVE: Vital Signs: Temperature 97.4 degrees, pulse 80, respiratory rate 14, blood pressure 113/64. Intake and output: Intake 2.6 L. Output 70 mL. General: This is a middle-aged female, resting in bed. She is currently sedated. HEENT: Normocephalic, atraumatic. She has a dressing noted over her right eye. She has scaly skin noted to the face and forehead. She is orally intubated. Neck: Supple. There is no JVD noted. Cardiovascular: Regular rate and rhythm. No murmur or gallop noted. Pulmonary: She has decreased breath sounds bilaterally. She has crackles noted. She remains mechanically ventilated. Abdomen: Obese, soft, with positive bowel sounds. : She has a Weston catheter. She has scant urine output. Extremities: She has dependent edema noted to the upper extremities and to the backs of the thighs. No pretibial edema. Integumentary: Skin is dry. No rashes or lesions other than the above noted scaly skin noted to the face and head. LAB DATA: Sodium 138, potassium 4.2, CO2 27, BUN 69, creatinine 4.9, calcium 10.3, phosphorus 5.8, albumin 2.2. ASSESSMENT AND PLAN: 1. Acute kidney injury without recovery and worsening renal function, now with oliguria. We will ask surgery to place either a Vas-Cath or a tunneled dialysis catheter today so that we may initiate dialysis as her urine output is now significantly decreased. I hope that this will assist with her respiratory status as well as initiate some recovery to kidney function. I called and spoke with her daughter as I was unable to connect with anyone else on her list of phone numbers. Most of the numbers were non-workable numbers. I discussed the patient's situation and plan with her. She was in agreement. I had her speak with the patient's nurse today for verification and to obtain surgery permits. Will plan to dialyze her for short treatment today and for a regular treatment tomorrow. 2. Electrolytes. These are acceptable. Acid-based balance. Continues mildly alkalotic. Continue to note, she is on a vent. No changes. 3. Anemia. I have no new CBC. 4. Respiratory status. Again, she is to go for tracheostomy today. Dictated by BRODIE Campos for Migue Galeano MD
[2016-11-05] MEDS ORDERED: NIMBEX 2 MG DOSE ONE (13:45)
[2016-11-05] MEDS ORDERED: LR 1,000 ML ONE (13:45)
[2016-11-05] MEDS ORDERED: ANESTHESIA PB SET 88 IN 5742 ONE (13:46)
[2016-11-05] MEDS ORDERED: NS 2,000 ML ONE (13:57)
[2016-11-05] MEDS: LOVENOX SUBQ SCH (13:59)
--- NOTE | 2016-11-05 14:16 | OPERATIVE NOTE ---
PROCEDURE DATE: 11/05/2016 PROCEDURES: 1. Ultrasound of the left internal jugular vein. 2. Placement of a left subclavian tunnel dialysis catheter. 3. Tracheostomy. SURGEON: Demetris Jean MD. ASSISTANTS: Darron Ferguson RN, and Michael Rosales. PREOP DIAGNOSIS: Respiratory failure and renal failure. POSTOP DIAGNOSIS: The same. DESCRIPTION OF PROCEDURE: The patient came to the operating room from the ICU on the ventilator. She has a PICC line in her right arm so we chose the left side. I did image her left internal jugular vein and it did compress. We then prepped and draped the upper anterior chest and neck on both sides. We turned her head to the right, placed her in Trendelenburg. We chose a 24 cm precurved catheter. We imaged the left internal jugular vein and used it to guide us to the vein. We stuck the vein but the guidewire would not pass. We switched to a Glidewire, it still would not pass. We shot a venogram which showed a small connection to the internal jugular vein and a small connection to the innominate vein but we never could traverse that in order to get into the innominate vein. I had to abort further attempts as a left internal jugular vein approach. We then did a blind stick of the left subclavian vein and accessed it. We were able to pass a guidewire across the innominate vein to the superior vena cava. We then were able to pass the small dilator but the large larger dilator would not go. So I put the small dilator back on, switched to a stiff Glidewire, and then was able to dilate the tract with the small dilator to the large dilator and then ultimately to the introducer sheath. We had chosen a 28 cm straight catheter and chose not to use precurved catheter since we had switched to the subclavian position. We did tunnel the catheter from another further incision inferior and lateral up to the subclavian stick. We then removed the dilator and guidewire and introduced the split catheter through the sheath into the subclavian vein and advanced it into the innominate vein and over to the superior vena cava. We peeled the sheath away. After placement we are able to aspirate and irrigate easily with weak heparin with 100 units/mL. We secured the flange to the skin with a nylon and closed the subclavian incision with a 4-0 Polysorb subcuticular stitch. We placed 2-0 nylons through the flange to secure it and a sterile OpSite was applied. We then straightened the patient's neck, placed her in reverse Trendelenburg, and had an team assistant hold the chin up. We then anesthetized the skin in the anterior neck with 1% lidocaine with epinephrine. We made a vertical incision and dissected through the subcutaneous tissue through the midline between the strap muscles down to the trachea. A couple of veins were ligated with 3-0 Polysorbs and divided. The isthmus was divided and this exposed the trachea. The 8 Shiley was tested, the balloon was tested under water and found to be without holes. The trach tape was placed on the flange. We then placed our trach hook underneath the cricoid and we removed the 2nd tracheal ring. The indirect sales exec pulled the endotracheal tube back and when it came past our tracheotomy we introduced the 8 Shiley into the tracheotomy without difficulty. We removed the trocar, passed a flexible catheter easily into the trachea. We then introduced the inner cannula. We then blew up the balloon to a comfortable position. The corrugated ventilator tubing was passed over the drape and attached to the inner cannula and the patient ventilated satisfactorily. We passed the trach ties around the back of the neck and tied them and placed 3-0 nylon through the flange on each side to help secure the flange. She tolerated it well. We then went back to the tunneled catheter and I put strong heparin at 5000 per mL in each lumen, 1.9 mL in one lumen, 2.0 mL in the other lumen. She tolerated procedure satisfactorily, sent back to the intensive care unit in preoperative condition.
--- NOTE | 2016-11-05 15:53 | PROGRESS NOTE ---
DATE: 11/05/2016 SUBJECTIVE: Ms. Waters still unresponsive, moves extremities sometimes spontaneously. She does not seem to hear or respond to commands. She had a tracheostomy put in and we are going to initiate dialysis today. OBJECTIVE: Vital Signs: Temp 97.1 degrees, pulse 87, respirations 14, blood pressure 132/64. Lungs: Lungs are clear in all lung morin. Cardiovascular exam: Regular rhythm and rate without murmur or S3. Abdomen: Soft. Skin: Warm and dry. : Urine output was 2700. LABS: White count is 14,510, hematocrit 28, platelet count 404,000. Chemistry: Sodium 138, potassium 4.2, chloride 99, BUN 69, creatinine 4.9, blood sugar is 132, 137, 149, 159 and 142. ASSESSMENT AND PLAN: 1. Acute kidney injury. BUN and creatinine continue to rise. Initiate dialysis today. The plan is I think to put a left subclavian tunneled dialysis catheter. She had a tracheostomy put in. 2. Ventilator-dependent tracheostomy placed. 3. Neurologically really not changed. Continue supportive measures. 4. Right eye continue to watch proptosis, swelling and subconjunctival bleeding appreciated. Continue taped shut and use some topical care. I do not see any sign of global perforation. Continue current antibiotics. Question on whether she has endocarditis. We are treating her for pneumonia and soft tissue infection. Review of her orders: I do not see any change at this point. She is on cefepime.
--- NOTE | 2016-11-05 16:35 | PROGRESS NOTE ---
DATE: 11/05/2016 PRESENT ILLNESS: The patient has been treated for pneumonia. I think now the pneumonia has cleared and most of the chest findings on x-ray are from pulmonary venous congestion, i.e. pulmonary edema. The patient may possibly have mitral valve endocarditis. MEDICATIONS: This is day 18 for vancomycin and day 14 for cefepime. PHYSICAL EXAMINATION: Vital Signs: Temperature is 97.3 degrees, pulse 90, respirations 15, blood pressure 125/70. General: Patient is intubated and sedated. She is on dialysis currently. Lungs: Clear to auscultation. Cardiovascular: Irregular heart rate. Abdomen: Soft and nontender. LAB AND X-RAY: Chest x-ray shows improved pulmonary edema. The patient's blood gases show a pH of 7.37, a PO2 of 100, and pCO2 of 49. The creatinine is 4.9. GFR is 11. Sputum Gram stain showed no bacteria. ASSESSMENT AND PLAN: Patient possibly has a mitral valve endocarditis. My plan is to continue with the current antimicrobial agents. The patient's comorbidities include diabetes mellitus, sleep apnea, chronic obstructive pulmonary disease, obesity, and now renal failure requiring dialysis. If the patient gets better, she will need a transesophageal echocardiogram to try to figure out if the patient does indeed have endocarditis.
[2016-11-05] MEDS: LANTUS SUBQ SCH (21:04)
[2016-11-05] MEDS: EUCERIN CREAM TOP SCH (21:12)
[2016-11-06] MEDS: DIPRIVAN 1% 100 ML IV SCH ×5 (03:40→20:45)
[2016-11-06] MEDS: NS 1,000 ML IV SCH ×2 (03:45→13:51)
[2016-11-06] MEDS: DUONEB (A & A) INH SCH ×6 (04:02→22:58)
[2016-11-06 04:34] LABS: ALLEN TEST YES; BE 0.4 mmoll (-3.0-3.0); BLOOD TYPE ARTERIAL; DRAW SITE R RADIAL; METHB 0.4 % (0.0-1.5); PCO2(98.6) 48 mmHg (35-45); PO2(98.6) 82 mmHg (60-100); SAMPLE BLOOD; SRATE 14 BPM; THB 11.1 g/dL (11.5-17.4); TVOL 600 mL; pH(98.6) 7.35 (7.35-7.45)
[2016-11-06 04:36] LABS: MODALITY VENTILATOR
[2016-11-06] MEDS: MAXIPIME 1 GM/NS 50 ML IV SCH ×2 (05:22→17:35)
[2016-11-06 06:00] LABS: ALBUMIN 2.1 g/dL (3.5-5.0); CALCIUM 9.4 mg/dL (8.8-10.2)
[2016-11-06] MEDS: HUMALOG SUBQ SCH ×4 (06:05→20:55)
--- NOTE | 2016-11-06 08:02 | Diag Imaging Result Document ---
PROCEDURE NAME: CHEST-PORTABLE - 11/06/2016 PORTABLE CHEST X-RAY: COMPARISON: 11/05/2016. FINDINGS: There is a new tracheostomy tube. This is in good position. There is a new left-sided dialysis catheter with the tip at the upper SVC. Stable right PICC line. Stable nasogastric tube. Stable cardiomegaly with pulmonary vascular congestion. Stable diffuse bilateral infiltrates or edema. IMPRESSION: New lines and tubes; otherwise, no change from prior.
[2016-11-06] MEDS ORDERED: NS 2,000 ML MISC PRN (08:10)
[2016-11-06] MEDS: EUCERIN CREAM TOP SCH (08:14)
[2016-11-06] MEDS: SODIUM CHLORIDE 0.9% INJ SCH (08:14)
[2016-11-06] MEDS: PROTONIX IV SCH (08:14)
[2016-11-06] MEDS: GENTAMICIN 0.3% OPH DROPS RIGHT EYE SCH ×3 (08:14→17:35)
--- NOTE | 2016-11-06 09:43 | PROGRESS NOTE ---
DATE: 11/06/2016 SUBJECTIVE: Patient currently intubated and sedated. OBJECTIVE: Vital Signs: Temperature 98 degrees, pulse 82, respiratory rate 14, blood pressure 108/60. Intake 2.5 L. Output 2 L. Physical Examination: General: This is a middle-aged, female, currently sedated. HEENT: Normocephalic, atraumatic. Neck: Supple. There is a midline tracheostomy. No bleeding noted. Cardiovascular: Regular rate and rhythm without murmur or gallop. Pulmonary: Decreased breath sounds bilaterally. She remains mechanically ventilated. Abdomen: Obese, soft, positive bowel sounds. : Weston catheter with scant dark yellow urine. Extremities: Trace dependent edema but no pretibial edema. Integumentary: Skin is dry and scaly, noted to the face and neck. Lab Data: Sodium 136, potassium 4, CO2 24, BUN 51, creatinine 4.5, calcium 9.4, phosphorus 5.2, and albumin 2.1. ASSESSMENT AND PLAN: 1. Acute kidney injury without recovery and oliguria. The patient had a Vas-Cath placed yesterday. We initiated dialysis afterward. Patient had 2 L removed during treatment and tolerated this without difficulty. We will plan to dialyze her again today for a 2 hour treatment on a 3 K bath with UF goal of again 2-3 L. 2. Electrolytes. See #1 for plan. 3. Respiratory status. Again, she remains on tracheostomy. We will continue to dialyze today and tomorrow, pull fluid as tolerated, and then make daily decisions. Dictated by BRODIE Campos for Migue Galeano MD
[2016-11-06 10:26] LABS: HEPATITIS PROFILE ACUTE SEE COMMENTS (())
--- NOTE | 2016-11-06 10:29 | PROGRESS NOTE ---
DATE: 11/06/2016 SUBJECTIVE: Ms. Waters is about the same. The tracheostomy is in. She appears comfortable, unresponsive. Right eye appears to have less swelling. Continue to kind of tape it shut and follow. OBJECTIVE: Vital Signs: Temp 98.0 degrees, pulse 82, respirations 14, blood pressure 108/60. Lungs: Clear in all lung morin. Cardiovascular exam: Regular rhythm and rate without murmur or S3. Abdomen: Soft. Skin: Warm and dry. : Urine output over 2 L. LABS: Lab reviewed from yesterday: Hematocrit stable at 28. Chemistry: Sodium 136, potassium 4.0, chloride 98, BUN 51, creatinine 4.5. Blood sugars 142, 143 and 139. ASSESSMENT AND PLAN: 1. Acute kidney injury without recovery and oliguria. No Vas-Cath placed. Pursue dialysis. Electrolytes and acid base, stable. 2. Infectious process, possibility of endocarditis. Treating her for pneumonia. Possible soft tissue infection could be the source. Continue present treatment. At some point we may be able to define her mitral valve a little better with esophageal echocardiogram. 3. Chronic obstructive pulmonary disease. 4. Obesity. 5. Neurologically really unchanged within extremities. Hopefully with dialysis, maybe we will see some improvement neurologically. Review of orders: I do not know if there is anything to change at this point. She is still getting Diprivan for sedation. She is on cefepime 1 g q. 12 hours, Lovenox 30 mg subcutaneously q. 24 hours, Lantus 40 units at bedtime, Protonix 40 mg IV q. 24 hours. We are giving her acetaminophen as needed for fever. White count is still a little elevated, but has come down from 25,000.
[2016-11-06] MEDS: LOVENOX SUBQ SCH (11:00)
--- NOTE | 2016-11-06 13:13 | PROGRESS NOTE ---
DATE: 11/06/2016 Ms. Waters continues very poorly responsive. She has lateral eye movement with passive head turning. She did not respond to noxious stimulation applied briefly at the bedside. There is no new imaging today. Recent lab does not show anything that would account for encephalopathy except the persistent BUN and creatinine findings which are stable and improved compared to yesterday. No suggestion from neurologic standpoint.
[2016-11-06] MEDS ORDERED: NS 2,000 ML ONE (14:34)
[2016-11-06] MEDS ORDERED: HEPARIN ONE (14:34)
[2016-11-06] MEDS ORDERED: INSULIN PEN NEEDLES ONE (20:43)
[2016-11-06] MEDS: LANTUS SUBQ SCH (20:51)
[2016-11-06] MEDS: NON-FORMULARY BULK MED TOP SCH (21:29)
[2016-11-07] MEDS: NS 1,000 ML IV SCH ×3 (00:21→21:12)
[2016-11-07] MEDS: DIPRIVAN 1% 100 ML IV SCH ×6 (01:19→21:15)
[2016-11-07] MEDS: DUONEB (A & A) INH SCH ×6 (03:43→23:14)
[2016-11-07 04:32] LABS: ALLEN TEST YES; BE 2.2 mmoll (-3.0-3.0); BLOOD TYPE ARTERIAL; DRAW SITE R RADIAL; METHB 1.7 % (0.0-1.5); O2(CT) 10.5 mL/dL (15.0-23.0); PCO2(98.6) 44 mmHg (35-45); PO2(98.6) 80 mmHg (60-100); SAMPLE BLOOD; SAO2 99.6 % (95.0-100.0); SRATE 14 BPM; THB 7.8 g/dL (11.5-17.4); TVOL 600 mL
[2016-11-07 04:33] LABS: MODALITY VENTILATOR
[2016-11-07] MEDS: MAXIPIME 1 GM/NS 50 ML IV SCH ×2 (05:03→17:04)
[2016-11-07 05:56] LABS: ALBUMIN 2.1 g/dL (3.5-5.0); CALCIUM 9.3 mg/dL (8.8-10.2); POTASSIUM 3.7 mmol/L (3.5-5.1)
[2016-11-07] MEDS: HUMALOG SUBQ SCH ×4 (06:28→21:13)
--- NOTE | 2016-11-07 06:35 | Diag Imaging Result Document ---
PROCEDURE NAME: CHEST-PORTABLE - 11/07/2016 PORTABLE CHEST: COMPARISON: 11/06/2016. FINDINGS: There is a tracheostomy tube. No change in the right-sided PICC line or in the left subclavian catheter. No pneumothoraces. There are dense infiltrates throughout both lungs similar to the prior exam. The heart remains enlarged. I believe there is a left pleural effusion. IMPRESSION: No interval improvement.
[2016-11-07] MEDS ORDERED: NS 2,000 ML ONE (08:34)
[2016-11-07] MEDS ORDERED: HEPARIN ONE (08:34)
[2016-11-07] MEDS ORDERED: HEPARIN IV PRN (08:43)
[2016-11-07] MEDS ORDERED: TIGHT: 0.2 ML/HR MISC PRN (08:43)
[2016-11-07] MEDS ORDERED: NS 2,000 ML MISC PRN (08:43)
[2016-11-07] MEDS: PROTONIX IV SCH (09:18)
[2016-11-07] MEDS: GENTAMICIN 0.3% OPH DROPS RIGHT EYE SCH ×3 (09:18→17:00)
[2016-11-07] MEDS: SODIUM CHLORIDE 0.9% INJ SCH (09:18)
[2016-11-07] MEDS: NON-FORMULARY BULK MED TOP SCH ×2 (09:18→21:57)
--- NOTE | 2016-11-07 10:09 | PROGRESS NOTE ---
DATE: 11/07/2016 SUBJECTIVE: She is sedated, on the ventilator. OBJECTIVE: Vital Signs: Blood pressure 154/78. Heart rate 92. Respirations 20. Afebrile. Intake and Output: Intake 3.7 L. Output 0. PHYSICAL EXAMINATION: Mental Status: As above. Skin: Warm and dry, scaling. Eyes: Conjunctivae are pink. Neck: Neck veins are not visible. Heart: Regular. No gallops or rubs. Lungs: Equal breath sounds with a few crackles. Abdomen: Soft and nontender. Bowel sounds are present. Extremities: There is 1+ edema. No clubbing, no cyanosis. LABORATORY DATA: Sodium 138. Potassium 3.7. Chloride 101. Bicarbonate 24. BUN 35. Creatinine 3.7 hemoglobin 8.1. IMPRESSION: 1. Acute kidney injury: Anuric now. We will plan for 4-5 L ultrafiltration today. A 3 potassium bath. 2. Respiratory failure: We will plan for aggressive UF as above. 3. Electrolytes, in target. 4. Acid-base, in target. 5. Anemia: Hemoglobin is holding stable over the last several days. 6. Hypertension, in target.
--- NOTE | 2016-11-07 10:28 | PROGRESS NOTE ---
DATE: 11/07/2016 SUBJECTIVE: Ms. Waters is getting dialysis at the present time. Neurologically, nothing has really changed. Still unresponsive. OBJECTIVE: Vital signs: Afebrile, temp 96.5; pulse 92, respirations 18, blood pressure 146/76. Lungs: Clear. Has a tracheostomy and on the ventilator. Cardiovascular: Regular rhythm and rate without murmur or S3. Abdomen: Soft. Skin: Warm and dry. Urine output is very poor. LAB: Sodium 130, potassium 3.7, chloride 101, bicarb 24, BUN 35, creatinine 3.7. Blood sugar 159, 176, 163. Albumin 2.1. ASSESSMENT AND PLAN: 1. Acute kidney injury undergoing dialysis now. 2. Infectious process, possible endocarditis. Continue present antibiotics. 3. Obstructive pulmonary disease. 4. Obesity. 5. Neurologically concerned she may have had some hypoxic injury. She really is not waking up and improving much. Continue dialysis. Will have discussions with family. I think prognosis is poor. Reviewed her orders.
[2016-11-07] MEDS: LOVENOX SUBQ SCH (11:15)
--- NOTE | 2016-11-07 13:45 | PROGRESS NOTE ---
DATE: 11/07/2016 SUBJECTIVE: Ms. Waters looks about the same, still very difficult to see any response. There is nothing new neurologically. There is no meningismus. I discussed at some length with family uncertain prognosis from neurologic standpoint. I am concerned that she may have had hypoxic/ischemic brain injury which may not be irreversible. I think we need to continue aggressive support and hope for the best. If we do not see clinical improvement in neurologic condition by next week, we may consider repeat imaging and other workup. Thanks for allowing me to follow Ms. Waters.
[2016-11-07] MEDS: VANCOMYCIN 1 GM/NS 250 ML IV SCH (15:00)
--- NOTE | 2016-11-07 15:11 | PROGRESS NOTE ---
DATE: 11/07/2016 PRESENT ILLNESS: The patient is currently being treated for possible endocarditis. MEDICATIONS: This is day 20 for vancomycin and day 16 for cefepime. PHYSICAL EXAMINATION: Vital Signs: Temperature is 97.6 degrees, pulse 92, respirations 20, blood pressure 114/66. General: This is an ill-appearing, elderly female. She is in no acute distress. Integument: Patient continues to have this diffuse scaling type rash. Lungs: Clear to auscultation. Cardiovascular: Regular heart rate. Abdomen: Soft and nontender. Extremities: The patient has a PICC in the right arm. The site is not swollen or purulent. She has a dialysis catheter in the upper left chest area. That site also is not swollen or purulent. LAB AND X-RAY: The patient's blood gases show a showed a pH of 7.4, a PO2 of 80, pCO2 of 44. Creatinine 3.7. GFR of 15. Hepatitis panel was nonreactive. Chest x-ray shows bilateral infiltrates. ASSESSMENT AND PLAN: The patient remains obtunded. She also has a diffuse dermatitis that I am uncertain as to the cause of it. She may have endocarditis. The plan is to continue antibiotic therapy for a total of 6 weeks and if the patient gets better proceed with a transesophageal echocardiogram. COMORBIDITIES: Include diabetes mellitus, sleep apnea, COPD, obesity and renal failure requiring dialysis.
[2016-11-07] MEDS: LANTUS SUBQ SCH (21:13)
[2016-11-08] MEDS: DIPRIVAN 1% 100 ML IV SCH ×6 (02:34→23:48)
[2016-11-08] MEDS: DUONEB (A & A) INH SCH ×6 (03:28→22:56)
[2016-11-08] MEDS: MAXIPIME 1 GM/NS 50 ML IV SCH ×2 (05:05→17:17)
[2016-11-08 05:09] LABS: ALLEN TEST YES; BE -0.2 mmoll (-3.0-3.0); BLOOD TYPE ARTERIAL; DRAW SITE R RADIAL; METHB 1.7 % (0.0-1.5); O2(CT) 10.5 mL/dL (15.0-23.0); PCO2(98.6) 34 mmHg (35-45); PO2(98.6) 110 mmHg (60-100); SAMPLE BLOOD; SAO2 99.7 % (95.0-100.0); SRATE 14 BPM; THB 7.6 g/dL (11.5-17.4); TVOL 600 mL; pH(98.6) 7.45 (7.35-7.45)
[2016-11-08 05:10] LABS: MODALITY VENTILATOR
[2016-11-08] MEDS: HUMALOG SUBQ SCH ×4 (06:23→20:42)
[2016-11-08 06:35] LABS: HEMOGLOBIN 7.1 g/dL (12.0-16.0); MCH 28.1 PG (27-31); MCHC 28.4 g/dL (33-37); MCV 98.8 FL (81-99); MPV 10.4 FL (7.4-10.4); RBC 2.53 XMIL (4.2-5.4)
[2016-11-08 06:54] LABS: ALBUMIN 2.1 g/dL (3.5-5.0); CALCIUM 9.6 mg/dL (8.8-10.2); POTASSIUM 3.5 mmol/L (3.5-5.1); TOTAL BILIRUBIN 0.28 mg/dL (0.20-1.00); TOTAL PROTEIN 5.8 g/dL (6.3-8.3)
--- NOTE | 2016-11-08 08:11 | Diag Imaging Result Document ---
PROCEDURE NAME: CHEST-PORTABLE - 11/08/2016 AP PORTABLE CHEST: TIME: 0500 hours. FINDINGS: There is an NG tube which passes below the diaphragm. There is a PICC line on the right and a double-lumen subclavian catheter on the left with its tip in the superior vena cava. There is hazy opacity throughout both lungs, consistent with pulmonary edema, and, in addition, there is some apparent atelectasis in the right lower lobe and or middle lobe. This has not changed appreciably since 11/07/2016. IMPRESSION: Pulmonary edema and atelectasis.
[2016-11-08] MEDS ORDERED: HEPARIN ONE (08:31)
[2016-11-08] MEDS ORDERED: NS 2,000 ML ONE (08:31)
[2016-11-08] MEDS: NS 1,000 ML IV SCH ×2 (09:13→17:21)
[2016-11-08] MEDS: PROTONIX IV SCH (09:13)
[2016-11-08] MEDS: SODIUM CHLORIDE 0.9% INJ SCH (09:13)
[2016-11-08] MEDS: NON-FORMULARY BULK MED TOP SCH ×2 (09:16→20:47)
[2016-11-08] MEDS: GENTAMICIN 0.3% OPH DROPS RIGHT EYE SCH ×3 (09:16→17:19)
[2016-11-08] MEDS ORDERED: NS 2,000 ML MISC PRN (09:24)
[2016-11-08] MEDS ORDERED: HEPARIN IV PRN (09:24)
[2016-11-08] MEDS ORDERED: TIGHT: 0.2 ML/HR MISC PRN (09:24)
--- NOTE | 2016-11-08 12:03 | PROGRESS NOTE ---
DATE: 11/08/2016 SUBJECTIVE: She is sedated on the ventilator. OBJECTIVE: Vital Signs: Blood pressure 125/72, heart rate 90, respirations 14, afebrile. Intake 4.2 L. Output 4 L. General: No acute distress. Skin: Warm and dry. No changes. Heart: Regular. Lungs: Have equal breath sounds. No crackles. Abdomen: Soft, nontender. Bowel sounds are present. Extremities: Have 1+ edema. No clubbing or cyanosis. IMPRESSION/PLAN: 1. Acute kidney injury. No improvement. Essentially anuric now. Dialysis again today with a goal of 4-6 L ultrafiltration. Catheter function is not good, but we are able to achieve a 250 blood flow. 2. Hypokalemia. A 3 potassium bath.
[2016-11-08] MEDS: LOVENOX SUBQ SCH (12:13)
--- NOTE | 2016-11-08 12:45 | PROGRESS NOTE ---
DATE: 11/08/2016 SUBJECTIVE: She is on dialysis, unresponsive. The right eye appears to have less swelling, still diffuse subconjunctival blood, but it appears to be resolving some. The swelling has gone down. OBJECTIVE: She has been afebrile. Pulse 88, respirations 14, blood pressure had been between 106 and 152/56-70. Her lungs are clear, anterolateral. Difficult to comment on her neck veins. CVP appears to be greater than 8 cm from angle of Juan F. Her lungs, otherwise, are clear. Cardiovascular: Regular rhythm and rate. Monitor shows a regular rhythm consistent with sinus rhythm. Abdomen soft. Positive bowel sounds. Extremities: She has no pedal edema. LABORATORIES: From today, white count 9080, hematocrit 25, platelet count 332,000. Sodium 139, potassium 3.5, chloride 102, bicarb 24. BUN 31, creatinine 3.8, blood sugar is 137, 154, 129, and 123. ASSESSMENT AND PLAN: 1. Acute kidney injury. Continue dialysis. Extracellular fluid volume overload. Continue to try and decrease her volume. 2. Treating for possible endocarditis. Continue present antibiotics. I would like to get an esophageal echo when able. 3. Respiratory failure. Lung ventilation now on a trach. 4. She has a PICC line in the right arm. REVIEW OF ORDERS: We will continue current orders; getting vancomycin, getting cefepime. Lastly, neurologically, really seen very little improvement. Of course she does get some sedation for her ventilator. REVIEW OF LABORATORY DATA: The review of the lab from today looks pretty good. Creatinine 3.8. Hematocrit is 25. It has gone down from 20 yesterday.
[2016-11-08] MEDS: LANTUS SUBQ SCH (20:44)
[2016-11-09] MEDS: DUONEB (A & A) INH SCH ×6 (03:35→23:29)
[2016-11-09] MEDS: DIPRIVAN 1% 100 ML IV SCH ×6 (03:47→20:25)
[2016-11-09] MEDS: NS 1,000 ML IV SCH ×3 (04:55→23:09)
[2016-11-09 05:19] LABS: BLOOD TYPE ARTERIAL; SAMPLE BLOOD
[2016-11-09] MEDS: MAXIPIME 1 GM/NS 50 ML IV SCH ×2 (05:21→17:14)
[2016-11-09 05:28] LABS: ALLEN TEST YES; BE 0.5 mmoll (-3.0-3.0); DRAW SITE R RADIAL; METHB 1.8 % (0.0-1.5); O2(CT) 11.1 mL/dL (15.0-23.0); PCO2(98.6) 41 mmHg (35-45); PO2(98.6) 105 mmHg (60-100); SAO2 99.7 % (95.0-100.0); SRATE 14 BPM; THB 8.1 g/dL (11.5-17.4); TVOL 600 mL
[2016-11-09 05:29] LABS: MODALITY VENTILATOR
[2016-11-09] MEDS: HUMALOG SUBQ SCH ×4 (06:35→20:25)
[2016-11-09 06:47] LABS: HEMATOCRIT 24.9 % (37.0-47.0); HEMOGLOBIN 7.1 g/dL (12.0-16.0); MCH 28.3 PG (27-31); MCHC 28.5 g/dL (33-37); MCV 99.2 FL (81-99); MPV 10.5 FL (7.4-10.4); RBC 2.51 XMIL (4.2-5.4)
[2016-11-09 06:57] LABS: ALBUMIN 1.9 g/dL (3.5-5.0); CALCIUM 9.5 mg/dL (8.8-10.2); POTASSIUM 3.5 mmol/L (3.5-5.1); TOTAL BILIRUBIN 0.27 mg/dL (0.20-1.00); TOTAL PROTEIN 5.6 g/dL (6.3-8.3)
--- NOTE | 2016-11-09 08:07 | Diag Imaging Result Document ---
PROCEDURE NAME: CHEST-PORTABLE - 11/09/2016 AP PORTABLE CHEST AT 0500 HOURS: FINDINGS: There is a double-lumen catheter in the left subclavian with its tip in the superior vena cava. There is a PICC line on the right with its tip in the right atrium. There is an NG tube with its tip below the diaphragm. There is a tracheostomy tube. There is cardiomegaly. There is patchy pulmonary edema which appears to be slightly improved at least in the right perihilar region since the previous study of 11/08/2016. IMPRESSION: Pulmonary edema slightly improved.
[2016-11-09] MEDS: GENTAMICIN 0.3% OPH DROPS RIGHT EYE SCH ×3 (08:33→17:14)
[2016-11-09] MEDS: NON-FORMULARY BULK MED TOP SCH ×2 (08:33→20:27)
[2016-11-09] MEDS: SODIUM CHLORIDE 0.9% INJ SCH (08:33)
[2016-11-09] MEDS: PROTONIX IV SCH (08:33)
--- NOTE | 2016-11-09 08:54 | PROGRESS NOTE ---
DATE: 11/09/2016 SUBJECTIVE: Ms. Waters neurologically is the same. She is sedated and on the ventilator, tracheostomy. She received dialysis yesterday. Her right eye appears a little less swollen. Diffuse subconjunctival bleeding as well seems to be resolving. PHYSICAL EXAMINATION: Lungs: Her lungs were clear anterolateral. Cardiovascular Examination: Regular rhythm and rate without murmur or S3. Abdomen: Soft. Skin: Is warm and dry. Vital Signs: Temperature 97.9 degrees, pulse 88, respirations 16, blood pressure 130/73. Is and Os: Yesterday, they dialyzed 4000 mL off. LAB: From this morning, white count 10,380, hematocrit 24, platelet count 311,000. Chemistry: Sodium 140, potassium 3.5, chloride 102, bicarb 23, BUN 22, creatinine 3.4, blood sugar is 139, 135, 85, and 116. Chest x-ray from this morning, pulmonary edema slightly improved. Double-lumen catheter in left subclavian with its tip at the superior vena cava. PICC line with its tip in the right atrium. NG tube with its tip below the diaphragm. Then a tracheostomy tube in place. ASSESSMENT AND PLAN: 1. Acute kidney injury. Continue hemodialysis. Extracellular fluid overload. Continue to treat. 2. Possible endocarditis. Continue present antibiotics. She presented with sepsis. 3. Respiratory failure on the lung. Was on the ventilator for extended period of time. Weaned her off and had to go back on so she has a tracheostomy and back on ventilator dependence. 4. A peripherally inserted central catheter line in the right arm and she has a double-lumen catheter in the left subclavian. 5. Review of orders. I do not see any changes at this time. Vancomycin. She is on cefepime. Neurologically, I really see no change but of course, she has been sedated a good portion of the time. 6. Right eye swelling. Subconjunctival bleeding appears to be improving. She has a history of glaucoma in that eye.
[2016-11-09] MEDS: LOVENOX SUBQ SCH (11:04)
[2016-11-09] MEDS: LANTUS SUBQ SCH (20:24)
[2016-11-10] MEDS: DIPRIVAN 1% 100 ML IV SCH ×8 (00:37→23:15)
[2016-11-10] MEDS: DUONEB (A & A) INH SCH ×6 (03:00→23:36)
[2016-11-10 04:40] LABS: ALLEN TEST YES; BE -2.1 mmoll (-3.0-3.0); BLOOD TYPE ARTERIAL; DRAW SITE R RADIAL; O2(CT) 10.5 mL/dL (15.0-23.0); PCO2(98.6) 31 mmHg (35-45); PO2(98.6) 120 mmHg (60-100); SAMPLE BLOOD; SAO2 99.7 % (95.0-100.0); SRATE 14 BPM; THB 7.7 g/dL (11.5-17.4); TVOL 600 mL; pH(98.6) 7.45 (7.35-7.45)
[2016-11-10 04:41] LABS: MODALITY VENTILATOR
[2016-11-10] MEDS: MAXIPIME 1 GM/NS 50 ML IV SCH ×2 (05:14→16:00)
[2016-11-10] MEDS ORDERED: TIGHT: 0.2 ML/HR MISC PRN (07:12)
[2016-11-10] MEDS ORDERED: NS 2,000 ML MISC PRN (07:12)
[2016-11-10] MEDS ORDERED: HEPARIN IV PRN (07:12)
--- NOTE | 2016-11-10 07:27 | Diag Imaging Result Document ---
PROCEDURE NAME: CHEST-PORTABLE - 11/10/2016 AP PORTABLE CHEST AT 0500 HOURS: FINDINGS: There is a double-lumen subclavian catheter on the left with its tip in the superior vena cava. There is a PICC line on the right. The NG tube appears to pass below the diaphragm. There is alveolar pulmonary edema. There is a small amount of fluid in the minor fissure on the right. These findings were all present on 11/09/2016. IMPRESSION: Pulmonary edema and small right pleural effusion.
[2016-11-10 07:37] LABS: HEMATOCRIT 26.7 % (37.0-47.0); HEMOGLOBIN 7.7 g/dL (12.0-16.0); MCHC 28.8 g/dL (33-37); MCV 97.1 FL (81-99); MPV 10.4 FL (7.4-10.4); RBC 2.75 XMIL (4.2-5.4)
[2016-11-10] MEDS: HUMALOG SUBQ SCH ×4 (07:44→20:14)
[2016-11-10] MEDS ORDERED: NS 2,000 ML ONE (07:51)
[2016-11-10] MEDS ORDERED: HEPARIN ONE (07:51)
[2016-11-10 08:08] LABS: AGAP 17; ALBUMIN 2.2 g/dL (3.5-5.0); ALKALINE PHOSPHATASE 119 U/L (32-104); BUN 29 mg/dL (8-22); CALCIUM 10.6 mg/dL (8.8-10.2); CHLORIDE 101 mmol/L (98-107); COSMO 283; GOT 18 U/L (10-30); GPT 7 U/L (10-36); POTASSIUM 3.7 mmol/L (3.5-5.1); SODIUM 138 mmol/L (136-145); TCO2 20 mmol/L (25-35); TOTAL BILIRUBIN 0.24 mg/dL (0.20-1.00); TOTAL PROTEIN 5.9 g/dL (6.3-8.3)
--- NOTE | 2016-11-10 08:12 | PROGRESS NOTE ---
DATE: 11/10/2016 SUBJECTIVE: She is unresponsive but she does move purposefully. OBJECTIVE: Vital Signs: Blood pressure 103/59, heart rate 74, respirations 16, afebrile. Intake 4 L. Output none recorded. General: No acute distress. Skin: Warm and dry, scaly. Conjunctiva pink. Right not examined. Oropharynx is dry. Neck: Neck veins are not distended. Heart: Regular. Lungs: Have equal breath sounds. No crackles. Abdomen: Soft, nontender. Bowel sounds are present. Extremities: Have 1 to 2+ edema. No clubbing or cyanosis. LABORATORY DATA: Pending for this morning. IMPRESSION: Acute kidney injury. No improvement. PLAN: We will plan maintenance hemodialysis today with a 3 potassium bath with a goal of 4-6 L ultrafiltration. No other changes.
[2016-11-10] MEDS: PROTONIX IV SCH (08:21)
[2016-11-10] MEDS: SODIUM CHLORIDE 0.9% INJ SCH (08:21)
[2016-11-10] MEDS: GENTAMICIN 0.3% OPH DROPS RIGHT EYE SCH ×3 (08:22→16:01)
[2016-11-10] MEDS: NON-FORMULARY BULK MED TOP SCH ×2 (08:23→20:17)
[2016-11-10] MEDS ORDERED: ALBUMIN 25% IV ONE (08:55)
--- NOTE | 2016-11-10 10:13 | PROGRESS NOTE ---
DATE: 11/10/2016 SUBJECTIVE: Ms. Waters has apparently open her eye today off sedation. She is on dialysis at the present time, comfortable. She is sedated. OBJECTIVE: Vital signs: Temperature 97.0, pulse 74, respirations 16, blood pressure 103/59. HEENT: Left pupils is equal, round, and reactive. Right eye with swelling and subconjunctival bleeding. The swelling has improved. Lungs: Clear anterolateral. Cardiovascular: Regular rhythm and rate without murmur or S3. Abdomen: Soft. Skin: Warm and dry. Intake and output: Good urine output with dialysis. Dialyzed yesterday with 2400 mL off and the day before the same, consistently with getting 2 L off at dialysis. ASSESSMENT AND PLAN: 1. Acute kidney injury. Continue hemodialysis. Making progress on extracellular fluid overload. 2. Possible endocarditis. Continue present antibiotics. 3. Respiratory failure. Tracheostomy, on the vent. Respiratory status I think is improving with diminishing her pulmonary venous hypertension. Her chest x-ray from this morning, there is still pulmonary edema and small right pleural effusion. 4. Continue parental nutrition. 5. Right eye swelling. Aware. 6. Diabetes mellitus type 2. Continue to follow sugars. Sliding scale. 7. Neurologic status. Encouraging that she open her eyes today. 8. Orders reviewed. She is on vancomycin and cefepime. Continue present treatment. Note, hematocrit is 26, hemoglobin 7.7. Continue to follow.
[2016-11-10] MEDS: LOVENOX SUBQ SCH (11:28)
[2016-11-10] MEDS: VANCOMYCIN 1 GM/NS 250 ML IV SCH (13:07)
--- NOTE | 2016-11-10 13:46 | PROGRESS NOTE ---
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 MEDICATIONS: This is day 23 for vancomycin, and day 19 for cefepime. OBJECTIVE: Vital Signs: Temperature is 96.4 degrees, pulse 88, respirations 18 , blood pressure 130/72. General: This is an ill-appearing, middle-aged female. She has a tracheostomy in place. Neurologic: She is obtunded. She did not make any spontaneous movements during my exam. Lungs: Clear to auscultation. Cardiovascular: Regular heart rate. I did not hear a murmur. Abdomen: Soft and nontender. The patient has a right-sided PICC in place. She also has , in the chest, a tunneled dialysis catheter in place. Integument: The patient still has a diffuse scaling dermatitis. LAB AND X-RAY: CBC-WBC 9.27, hgb 7.7, platelets 315K. ABG-pH 7.45, pO2 120, pCO2 31. Creatinine-4.3. LFTs normal. Chest x-ray-shows pulmonary edema. ASSESSMENT AND PLAN: Continue current antibiotics for possible culture negative endocarditis. COMORBIDITIES: Include diabetes mellitus, sleep apnea, COPD, obesity, and renal failure requiring dialysis. [facility]
[2016-11-10] MEDS ORDERED: INSULIN PEN NEEDLES ONE (20:11)
[2016-11-10] MEDS: LANTUS SUBQ SCH (20:14)
[2016-11-11] MEDS: DUONEB (A & A) INH SCH ×6 (03:06→23:25)
[2016-11-11 05:10] LABS: ALLEN TEST YES; BE -0.2 mmoll (-3.0-3.0); BLOOD TYPE ARTERIAL; DRAW SITE R RADIAL; METHB 1.4 % (0.0-1.5); O2(CT) 10.7 mL/dL (15.0-23.0); PCO2(98.6) 45 mmHg (35-45); PO2(98.6) 70 mmHg (60-100); SAMPLE BLOOD; SRATE 10 BPM; THB 8.2 g/dL (11.5-17.4); TVOL 600 mL; pH(98.6) 7.36 (7.35-7.45)
[2016-11-11 05:11] LABS: MODALITY VENTILATOR
[2016-11-11 05:41] LABS: HEMATOCRIT 25.8 % (37.0-47.0); HEMOGLOBIN 7.5 g/dL (12.0-16.0); MCH 28.3 PG (27-31); MCHC 29.1 g/dL (33-37); MCV 97.4 FL (81-99); MPV 10.8 FL (7.4-10.4); RBC 2.65 XMIL (4.2-5.4)
[2016-11-11] MEDS: OFIRMEV 1000 MG/ISOTONIC SOLN 100 ML IV PRN (05:42)
[2016-11-11] MEDS: DIPRIVAN 1% 100 ML IV SCH ×3 (05:42→18:57)
[2016-11-11 05:48] LABS: ALBUMIN 2.7 g/dL (3.5-5.0); CALCIUM 10.6 mg/dL (8.8-10.2); POTASSIUM 3.7 mmol/L (3.5-5.1); TOTAL BILIRUBIN 0.36 mg/dL (0.20-1.00); TOTAL PROTEIN 6.2 g/dL (6.3-8.3)
[2016-11-11] MEDS: HUMALOG SUBQ SCH ×4 (07:16→20:48)
--- NOTE | 2016-11-11 07:25 | Diag Imaging Result Document ---
PROCEDURE NAME: CHEST-PORTABLE - 11/11/2016 PORTABLE CHEST X-RAY: COMPARISON: 11/10/2016. FINDINGS: Stable support lines and tubes. Stable cardiomegaly and pulmonary edema. Lung volumes are improved, otherwise, no changes. IMPRESSION: Lung volumes are improved, otherwise, no change from prior.
[2016-11-11] MEDS: GENTAMICIN 0.3% OPH DROPS RIGHT EYE SCH ×3 (08:24→16:25)
[2016-11-11] MEDS: NON-FORMULARY BULK MED TOP SCH ×2 (08:25→20:48)
[2016-11-11] MEDS: SODIUM CHLORIDE 0.9% INJ SCH (08:25)
[2016-11-11] MEDS: PROTONIX IV SCH (08:25)
[2016-11-11] MEDS ORDERED: HEPARIN IV PRN (08:47)
[2016-11-11] MEDS ORDERED: NS 2,000 ML MISC PRN (08:47)
[2016-11-11] MEDS ORDERED: TIGHT: 0.2 ML/HR MISC PRN (08:47)
[2016-11-11] MEDS ORDERED: ALBUMIN 25% IV ONE ×2 (09:18→10:00)
--- NOTE | 2016-11-11 11:47 | PROGRESS NOTE ---
DATE: 11/11/2016 LOCATION: ICU bed 8. Ms. Waters continues very poorly responsive on my brief time at the bedside. She did not appear to be alert. She did not follow commands. She did not open her eyes or regard me. I do not have any new suggestion from a neurologic standpoint. We might consider repeat brain imaging when practical, not urgent.
[2016-11-11] MEDS: LOVENOX SUBQ SCH (12:42)
--- NOTE | 2016-11-11 13:24 | PROGRESS NOTE ---
DATE: 11/11/2016 Today Ms. Waters continues to be stable. There has not been any remarkable change per the nursing staff. OBJECTIVE: Vital signs: Blood pressure is 102/61, pulse 97, respirations 15, temperature is 99.5 degrees. General: Ms. Waters is a 66-year-old female. She is in bed, not in any distress. HEENT: Mucosa is pink and moist. Anicteric. Acyanotic. She has a trach and PEG. Chest: Air entry is bilaterally reduced. A few bibasilar crepitations. Cardiovascular: Regular rate and rhythm. I did not appreciate any murmurs. Abdomen: Distended but nontender. Extremities: No pedal edema. LENS SILVERER: Patient seems awake but is nonverbal. Does not follow any commands. A chest x-ray this morning shows low volumes. Otherwise, no changes. LABORATORY DATA: WBC is 11.34, hemoglobin is 7.5, platelet count of 315. PH 7.36, pCO2 is 45 and PO2 is 70. Sodium is 137, potassium is 3.7, chloride is 99, bicarb is 22, creatinine is 3.8. I's and O's, 0 urine output. There is dialysis this morning, 4,008 has been removed. ASSESSMENT: 1. Acute kidney injury. No improvement. Patient continues to be on dialysis. 2. Suspected endocarditis. Patient is currently on antibiotics and the plan is to treat her for 6-8 weeks of antibiotics. 3. Respiratory failure. Patient is status post tracheostomy. Continues to be vent dependent. 4. Diabetes mellitus. Stable. 5. Altered mental status which at this point, I think is probably residual anoxic brain injury. I do not think patient would show any remarkable neurological improvement in the short term. I have requested a meeting with the family tomorrow morning so we will have a plan as to what next. I think at this point, the patient will need to go to a long-term, an LTAC where to continue with Nephrology support as well as ventilatory support and antibiotics which she will be needing and also physical rehabilitation. Of note, when patient got admitted she coded for about 25 minutes before pulse was obtained and I think during that, she might have suffered a severe anoxic brain injury and that is probably what we are looking at, at this point in time.
--- NOTE | 2016-11-11 14:17 | PROGRESS NOTE ---
DATE: 11/11/2016 PRESENT ILLNESS: The patient is currently being treated for culture negative endocarditis. MEDICATIONS: She has been on vancomycin IV now for 24 days and cefepime IV for 20 days. PHYSICAL EXAMINATION: Vital Signs: Temperature is 99.5 degrees, pulse 98, respirations 10, blood pressure 102/61. General: This is an ill-appearing, middle-aged female. She is in no acute distress. Eyes: Both eyelids are closed. Neck: Patient has a tracheostomy in place. Lungs: Clear to auscultation. Cardiovascular: Regular heart rate. Abdomen: Soft and nontender. Integument: Patient has a diffuse scaling rash with some plaque-like lesions. LAB AND X-RAY: Chest x-ray shows pulmonary edema. The patient's CBC shows a white count of 11,340, hemoglobin 7.5, and platelet count 315,000. Blood gases show a pH of 7.36, a PO2 of 70, and a pCO2 of 45. The patient's creatinine is 3.8 and the GFR is 14. Serology for bartonella, Q-fever, brucella and legionella is negative. ASSESSMENT AND PLAN: The patient could have culture negative endocarditis. The plan is to continue current antibiotics. If the patient improves enough then a transesophageal echocardiogram would be helpful. Comorbidities include diabetes mellitus, sleep apnea, COPD, obesity, renal failure, and dialysis. [facility]
--- NOTE | 2016-11-11 15:16 | PROGRESS NOTE ---
DATE: 11/11/2016 SUBJECTIVE: She moves spontaneously, but does not interact. OBJECTIVE: Vital Signs: Blood pressure 102/61, heart rate 98, respiration of 10, temperature 99.5 degrees. Intake 2.1 L. Output 4 L. General Appearance: No acute distress. Skin: Warm and dry. Conjunctivae are pink. Neck: Neck veins are not visible. Heart: Regular. Lungs: Have equal breath sounds. Few crackles. Abdomen: Obese and soft. Bowel sounds are present. Extremities: Have 1+ edema. No clubbing or cyanosis. LABORATORY DATA: Sodium 137, potassium 3.7, chloride 99, bicarbonate 22, BUN 23, creatinine 3.8. IMPRESSION: 1. Acute kidney injury. No improvement. Remains volume overloaded. Hemodialysis today with a goal of 4-6 L as her blood pressure allows. 2. Electrolytes/acid base in target. 3. Respiratory failure. No change. 4. Anemia no change. Does not meet criteria for transfusion.
--- NOTE | 2016-11-11 16:21 | PROGRESS NOTE ---
DATE: 11/11/2016 ADDENDUM: The patient's serologic tests that I ordered have come back. Serology for Bartonella, brucella, Q fever and Legionella all are negative. The patient's hepatitis profile was nonreactive.
[2016-11-11] MEDS: MAXIPIME 1 GM/NS 50 ML IV SCH (16:24)
[2016-11-11] MEDS: LANTUS SUBQ SCH (20:46)
[2016-11-12] MEDS: DIPRIVAN 1% 100 ML IV SCH ×7 (01:12→22:55)
[2016-11-12] MEDS: DUONEB (A & A) INH SCH ×6 (03:08→23:03)
[2016-11-12 04:30] LABS: ALLEN TEST YES; BE -3.2 mmoll (-3.0-3.0); BLOOD TYPE ARTERIAL; DRAW SITE R RADIAL; METHB 1.4 % (0.0-1.5); O2(CT) 11.2 mL/dL (15.0-23.0); PCO2(98.6) 39 mmHg (35-45); PO2(98.6) 70 mmHg (60-100); SAMPLE BLOOD; SAO2 95.6 % (95.0-100.0); SRATE 10 BPM; THB 8.6 g/dL (11.5-17.4); TVOL 500 mL; pH(98.6) 7.36 (7.35-7.45)
[2016-11-12 04:44] LABS: MODALITY VENTILATOR
[2016-11-12 06:22] LABS: HEMOGLOBIN 7.7 g/dL (12.0-16.0); MCH 28.4 PG (27-31); MCHC 29.6 g/dL (33-37); MCV 95.9 FL (81-99); MPV 10.7 FL (7.4-10.4); RBC 2.71 XMIL (4.2-5.4)
[2016-11-12 06:34] LABS: CALCIUM 11.6 mg/dL (8.8-10.2); POTASSIUM 3.7 mmol/L (3.5-5.1); TOTAL BILIRUBIN 0.43 mg/dL (0.20-1.00); TOTAL PROTEIN 6.5 g/dL (6.3-8.3)
[2016-11-12] MEDS: HUMALOG SUBQ SCH ×4 (06:48→21:35)
[2016-11-12] MEDS ORDERED: NS 2,000 ML MISC PRN (07:10)
[2016-11-12] MEDS ORDERED: TIGHT: 0.2 ML/HR MISC PRN (07:10)
[2016-11-12] MEDS ORDERED: HEPARIN IV PRN (07:10)
--- NOTE | 2016-11-12 07:41 | Diag Imaging Result Document ---
PROCEDURE NAME: CHEST-PORTABLE - 11/12/2016 SINGLE FRONTAL RADIOGRAPH OF THE CHEST: COMPARISON: 11/11/2016. FINDINGS: Tracheostomy tube is in stable position. Left Vas-Cath is stable. An NG tube projects below the diaphragm and out of the field of view. Right central catheter is stable. The patient is significantly rotated toward the right. Cardiomegaly and interstitial edema are approximately stable. No definite new consolidations identified. IMPRESSION: Approximately stable chest.
[2016-11-12] MEDS ORDERED: HEPARIN ONE (07:49)
[2016-11-12] MEDS ORDERED: NS 2,000 ML ONE (07:49)
[2016-11-12] MEDS: SODIUM CHLORIDE 0.9% INJ SCH (08:27)
[2016-11-12] MEDS: PROTONIX IV SCH (08:27)
[2016-11-12] MEDS: TEARISOL OPH SOLUTION RIGHT EYE PRN (08:41)
[2016-11-12] MEDS: GENTAMICIN 0.3% OPH DROPS RIGHT EYE SCH ×3 (08:42→16:05)
--- NOTE | 2016-11-12 08:43 | PROGRESS NOTE ---
DATE: 11/12/2016 SUBJECTIVE: She is sedated on the ventilator. OBJECTIVE: Vital Signs: Blood pressure 95/54, heart rate 85, respirations 19, afebrile. Intake and output: Intake 1.3 L. Output 4.8 L. General: No acute distress. Skin: Warm and dry. HEENT: Conjunctivae are pink. Oropharynx is dry. Neck: Neck veins are not distended. Heart: Regular. Lungs: Have equal breath sounds. No crackles. Abdomen: Soft and obese and nontender. Bowel sounds are present. Extremities: Have no edema, clubbing, or cyanosis. LABORATORY DATA: Sodium 136, potassium 3.7, chloride 97, bicarbonate 20, BUN 32, creatinine 5.08. IMPRESSIONS: 1. Acute kidney injury. No recovery. She will have hemodialysis today. A 3 potassium bath with a goal of 2 L as her blood pressure allows. 2. Electrolytes are in target. 3. Acid-base is acceptable. 4. Anemia is stable. Does not meet criteria for transfusion. 5. Hypotension. Moderate. May limit ultrafiltration today.
[2016-11-12] MEDS: NON-FORMULARY BULK MED TOP SCH ×2 (09:00→21:37)
[2016-11-12] MEDS: LOVENOX SUBQ SCH (11:12)
[2016-11-12] MEDS: VANCOMYCIN 1 GM/NS 250 ML IV SCH (12:00)
--- NOTE | 2016-11-12 13:05 | PROGRESS NOTE ---
DATE: 11/12/2016 Today Ms. Waters continued to be stable. No acute changes. Per the nursing staff , her night was uneventful. OBJECTIVE: Vital signs: Blood pressure is 105/57, pulse of 93, respiration is 12, temperature 97.8 degrees. General Exam: Ms. Waters is a 66-year-old female. She is in bed, not in any distress. She is under the ventilator via the trach. Chest: Air entry is bilaterally reduced. No crepitations. Cardiovascular: Regular rate and rhythm. No murmurs, no rubs. No gallops. Abdomen: Soft, is distended but nontender. Bowel sounds are reduced. Extremities: No pedal edema. 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 I's and O's: Urine output none documented because the patient has no Weston. There is 4800 of dialysis removed. LABORATORY DATA: WBC 10.83, hemoglobin is 7.5, platelet count of 295,000. Sodium is 136, potassium is 3.7, chloride is 97, bicarbonate is 20, creatinine is 5.0. CURRENT MEDICATIONS INCLUDE: 1. Acetaminophen p.r.n. 2. Cefepime 1 g daily. 3. Lovenox subcu daily. 4. Gentamicin eye drops. 5. Glargine insulin 40 units subcutaneous daily. 6. Sliding scale. 7. Vancomycin. 8. Protonix. A chest x-ray this morning shows cardiomegaly and interstitial edema approximately stable. No new consolidation. ASSESSMENT: 1. Acute kidney injury. No improvement. Patient is on dialysis. 2. Suspected endocarditis. The patient continues to be on cefepime and vancomycin. So far, blood cultures have been negative. 3. Respiratory failure status post tracheostomy. 4. Diabetes mellitus. Stable on insulin regimen. 5. Altered mental status which we think is multifactorial at this point in time. I think anoxic brain injury is more. 6. Status post cardiac arrest on presentation. My understanding patient had more than 20 minutes of resuscitation so I think she probably might have suffered significant anoxic brain injury in the attempt. The plan, the patient is doing stable. I think all are doing for her now is supportive care. I spoke with the family members about the need to move her to an LTAC. I spoke with the , the daughter, the son and another family member who was also in the meeting. I explained how the presentation was, what therapy she has gone through and where we are now and I did mention to them that at this point I do not think she is going to show any remarkable improvement in the short term here in the hospital and that her condition is stable but continues to be critical and that she is probably not a candidate to go to the floor but she does not need to be in the ICU either and that the best alternative would be for her to go to an LTAC. At the end of our conversation they were all in agreement that the patient be sent to LTAC. I would therefore put in a consult for the social service director to start looking about it so we can get Ms. Waters to an LTAC for other supportive measures and active physical rehabilitation. Time spent was 1 hour AARON
--- NOTE | 2016-11-12 14:41 | PROGRESS NOTE ---
DATE: 11/12/2016 Ms. Waters is unresponsive. With passive head turning, there is minimal left extraocular movement. Right eye is patched. Left pupil is pinpoint without definite reaction to bright light. Left corneal reflex is diminished but present. She demonstrates some withdrawal with noxious stimulation over each foot. She did not move her hands. IMPRESSION: Continued coma, worrisome findings now with pinpoint pupil and diminished evidence of brainstem function. 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 As discussed, discovery of new problem on further imaging would not spinning frame changer right now, but we can consider imaging again when practical. I do not have any urgent suggestion today. Thanks for allowing me to follow Ms. Waters.
--- NOTE | 2016-11-12 16:30 | PROGRESS NOTE ---
DATE: 11/12/2016 PRESENT ILLNESS: The patient currently is being treated for culture negative endocarditis. MEDICATIONS: The patient has been receiving cefepime intravenously for 21 days and vancomycin intravenously for 25 days. PHYSICAL EXAMINATION: Vital Signs: Temperature is 97.8 degrees, pulse 97, respirations 21, blood pressure 105/57. General: This is an ill-appearing, middle-aged female. She is in no acute distress. Lungs: Clear to auscultation. Cardiovascular: Heart rate is regular. Chest: In the left chest there is a tunneled dialysis catheter in place. Abdomen: Soft and nontender. Integument: Patient has a diffuse scaling rash with some plaque-like lesions. LAB AND X-RAY: Chest x-ray continues to show pulmonary edema. CBC has a white count of 10,830, hemoglobin 7.7, and platelet count 295,000. Blood gases show a pH of 7.36, a PO2 of 70, and a pCO2 of 39. The patient's creatinine is 5. The GFR is 11. Liver function studies are normal. Chest x-ray shows pulmonary vascular congestion. ASSESSMENT AND PLAN: My plan is to continue the patient's current antibiotics for a total of 6 weeks for her presumed culture negative endocarditis. If the patient improves then a transesophageal echocardiogram would be helpful. Comorbidities include diabetes mellitus, sleep apnea, COPD, obesity, renal failure, and dialysis.
[2016-11-12] MEDS: LANTUS SUBQ SCH (21:36)
[2016-11-13] MEDS: DUONEB (A & A) INH SCH ×4 (03:27→15:55)
[2016-11-13 04:58] LABS: ALLEN TEST YES; BE 0.4 mmoll (-3.0-3.0); BLOOD TYPE ARTERIAL; DRAW SITE R RADIAL; METHB 1.6 % (0.0-1.5); MODALITY VENTILATOR; O2(CT) 11.4 mL/dL (15.0-23.0); PCO2(98.6) 35 mmHg (35-45); PO2(98.6) 88 mmHg (60-100); SAMPLE BLOOD; SAO2 99.2 % (95.0-100.0); SRATE 10 BPM; THB 8.4 g/dL (11.5-17.4); TVOL 500 mL; pH(98.6) 7.45 (7.35-7.45)
[2016-11-13 05:34] LABS: HEMATOCRIT 27.8 % (37.0-47.0); HEMOGLOBIN 8.3 g/dL (12.0-16.0); MCH 28.8 PG (27-31); MCHC 29.9 g/dL (33-37); MCV 96.5 FL (81-99); MPV 10.7 FL (7.4-10.4); RBC 2.88 XMIL (4.2-5.4)
[2016-11-13 05:36] LABS: ALBUMIN 2.9 g/dL (3.5-5.0); CALCIUM 10.9 mg/dL (8.8-10.2); POTASSIUM 3.5 mmol/L (3.5-5.1); TOTAL BILIRUBIN 0.48 mg/dL (0.20-1.00); TOTAL PROTEIN 6.7 g/dL (6.3-8.3)
[2016-11-13] MEDS: HUMALOG SUBQ SCH ×3 (06:25→15:42)
--- NOTE | 2016-11-13 06:35 | PROGRESS NOTE ---
DATE: 11/13/2016 SUBJECTIVE: Ms. Waters is sedated on the ventilator. OBJECTIVE: Vital Signs: Blood pressure 108/63, heart rate 104, respirations 24, afebrile. Intake 1.6 L. Output 2.5 L. Physical Examination: General: Obese woman, sedated. No response. Does move feet spontaneously. HEENT: Conjunctivae are pink. Right eye is covered. Oropharynx is dry. Neck: Neck veins are not appreciated. Heart: Regular and tachycardic with a gallop. Lungs: Have equal breath sounds. No crackles. Abdomen: Obese and soft. Bowel sounds are present. Extremities: Have trace edema in the right hand, otherwise none. No clubbing or cyanosis. Laboratory Data: Sodium 135, potassium 3.5, chloride 96, bicarbonate 21, BUN 25, creatinine 4.2. Hemoglobin 8.3. IMPRESSION: 1. Acute kidney injury. Presumably acute tubular necrosis following her cardiopulmonary arrest. No recovery thus far. She has no indications for dialysis today so we will withhold. 2. Acid base/electrolytes/volume status. All appear in target by my examination today. Hemoglobin is stable and does not meet criteria for transfusion.
--- NOTE | 2016-11-13 07:24 | Diag Imaging Result Document ---
PROCEDURE NAME: CHEST-PORTABLE - 11/13/2016 PORTABLE CHEST X-RAY: COMPARISON: 11/12/2016. FINDINGS: Stable support lines and tubes. Stable cardiomegaly and pulmonary vascular congestion. There is probably some mild pulmonary edema/volume overload, stable from prior. IMPRESSION: No change from prior.
[2016-11-13] MEDS: GENTAMICIN 0.3% OPH DROPS RIGHT EYE SCH ×3 (08:00→17:06)
[2016-11-13] MEDS: SODIUM CHLORIDE 0.9% INJ SCH (08:01)
[2016-11-13] MEDS: PROTONIX IV SCH (08:01)
[2016-11-13] MEDS: NON-FORMULARY BULK MED TOP SCH (08:01)
[2016-11-13] MEDS ORDERED: ATIVAN IV PRN (08:18)
--- NOTE | 2016-11-13 08:58 | PROGRESS NOTE ---
DATE: 11/13/2016 SUBJECTIVE: Ms. Waters is unresponsive. On bedside exam, there is very slight left extraocular movement with passive head turning. The left pupil is a little bit larger than yesterday, and I believe there is very slight reaction to bright light. I do not have any new suggestions or thoughts since yesterday. Consider repeat imaging when practical. Thanks for allowing me to follow Ms. Waters. [facility]
[2016-11-13] MEDS: LOVENOX SUBQ SCH (12:21)
--- NOTE | 2016-11-13 15:17 | PROGRESS NOTE ---
DATE: 11/13/2016 SUBJECTIVE: This morning Ms. Waters's condition remains the same. She continues to be completely nonverbal but eyes open. OBJECTIVE: Vital Signs: Stable. Blood pressure is 105/63, pulse of 108, respiration is 21, temperature 99.9 degrees. General: Ms. Waters is a 66-year-old female. She is in bed, in no apparent distress. HEENT: Mucosa is pink and moist. Anicteric. Acyanotic. Neck: Supple. Chest: Air entry is bilaterally reduced. A few bibasilar crepitations. Cardiovascular: Regular rate and rhythm. No murmurs. Abdomen: Distended but nontender. Bowel sounds are decreased. Extremities: No pedal edema. 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 Does not follow any commands. She is able to move lower extremities upon painful stimulation. The right pupil is completely blown with dense cataract. The left pupil is slightly pinpoint but is reactive. I's and O's: No urine output. The patient dialyzed 2500 pull out. Continues to be on current antibiotics. ASSESSMENT: 1. Acute kidney injury. No improvement. Patient is on hemodialysis. 2. Suspected endocarditis. Patient is currently on cefepime and vancomycin and is being followed by ID. So far blood cultures have been negative. 3. Respiratory failure status post tracheostomy. Patient continues to be vent dependent. 4. Diabetes mellitus, stable. 5. Altered mental status due to multifactorial etiologies. I think at this point the patient might have develop anoxic brain injury. 6. Status post cardiac arrest on presentation. 7. Nutritional needs. Patient is getting tube feedings through the NG tube. PLAN: We are still pending the final arrangements for the patient to be sent to LTAC. [facility]
[2016-11-13 16:15] VITALS: BP 112/67
--- NOTE | 2016-11-13 17:06 | DISCHARGE SUMMARY ---
ADMISSION DATE: 10/17/2016 DISCHARGE DATE: 11/13/2016 The patient had 27 days length of stay in the hospital. DISPOSITION: Sent to LTAC. CONSULTATION DURING THIS ADMISSION: 1. Pulmonary medicine was consulted. Patient was seen by Dr. Osvaldo Jones and followed up by Dr. Dutton. 2. Nephrology was consulted. Patient was seen by Dr. Galeano. 3. Infectious disease was consulted. Patient was seen by Dr. Muniz. 4. Hematology/oncology was consulted. Patient was seen by Dr. Roy. 5. Neurology was consulted. Patient was seen by Dr. Fong. 6. Surgery was consulted. Patient was seen by Dr. Jean. INVASIVE PROCEDURES DONE DURING THIS ADMISSION: Tracheostomy and left subclavian tunnel dialysis catheter was done by Dr. Jean on 11/05/2016. IMAGING STUDIES OF SIGNIFICANCE: CT scan of the head has been done. It shows questionable very vague low density at the left side of the mireya, probably artifactual. Development of bilateral mastoid air cells. ADMISSION DIAGNOSES: 1. Altered mental status. 2. Acute kidney injury. 3. Diabetes mellitus. 4. Lethargy. DISCHARGE DIAGNOSES: 1. Acute kidney injury, no improvement; patient has been on hemodialysis. 2. Suspected endocarditis. Patient is on cefepime and vancomycin. Has been on cefepime for at 22 days and vancomycin for 26 days and there is a plan to treat him for 6 weeks with antibiotics. Cultures have been negative. 3. Respiratory failure, vent dependent. Patient has a tracheostomy. 4. Diabetes mellitus. 5. Altered mental status which has not improve during the hospital stay. We think patient might have developed anoxic brain injury. 6. Status post cardiac arrest on presentation. 7. Generalized weakness. 8. Critical illness polymyonueropathy. 9. Morbid obesity. 10. Skin rash. DISCHARGE MEDICATIONS: At the time of transfer the patient is on: 1. Cefepime 1 g after each dialysis. 2. Insulin Lantus 40 units at bedtime. 3. Ativan 1 mg q.4. 4. Insulin sliding scale. 5. Vancomycin 1 g IV after each dialysis. PRESENTING COMPLAINT: Altered mental status. HISTORY OF PRESENTING COMPLAINT: Ms. Waters is a 66-year-old female who was initially admitted to [facility] on 10/07/2016 through 10/10/2016 for left lower lobe pneumonia and acute kidney injury which apparently got resolved. The patient was sent home but presented again to [facility] because of shortness of breath and kidney failure which precipitated her transferred to [facility]. Upon presentation, my understanding is that she coded in the ICU, coded over 20 minutes, and they finally got a pulse. Patient was intubated and was admitted to the ICU for further care. HOSPITAL COURSE: Ms. Waters had a very extended hospital stay initially because of sepsis and suspected endocarditis. However, blood cultures have been all negative. Urine culture only showed Angelic albicans. The patient was treated with fluconazole for the Angelic initially. She had an echocardiogram which did show moderate to severe mitral annular calcification and there was a mobile mass attached to the posterior part of the mitral annular calcification which could represent vegetation versus mobile calcified mass. The patient, however, could not get to do a CRYSTAL because of her very unstable state. Blood cultures, however, have been all negative. It was presumed that those echocardiographic features could be vegetation so she was treated as if she had bacteria endocarditis. The patient was extubated at 1 point. However, over a 24 hour period she was not able to sustain adequate oxygenation, so she was reintubated. She was intubated for over 3 weeks until a decision was made to do a tracheostomy which was successfully done. However, patient has been vent dependent since then. Throughout the hospital stay Ms. Waters's mental status has not remarkably improved. There is a CT scan report which showed questionable very vague low density at the left side of the mireya, so there was a question whether the patient had brainstem infarction. However, she is able to move her extremities. We have not been able to do an MRI because of her very unstable state, always on a ventilator, and cannot be in the MRI machine for that long. Multiple conversations were held with the family members. During the hospital stay the patient's creatinine and renal function actually did not improved. She was therefore started on renal replacement and she has been doing remarkably fine on dialysis. At this stage patient is only getting antibiotics for the suspected endocarditis. She has been on ventilator support for the respiratory failure and she is getting hemodialysis for the acute kidney failure which we think is ATN in the context of septic shock and cardiac arrest. Patient is therefore going to be transferred to LT for further care. TIME SPENT FOR DISCHARGE: 42 minutes. [facility]
== END 2016-11-13 17:26 | DRG 4 ==
LOC: P.ED 11:26 → P.ICU 12:56 → ICU 10-18 17:36
PROVIDERS: ATTEND Internal Medicine
PROC: 5A1955Z Respiratory Ventilation, Greater than 96 Consecutive Hours (ICD-10-PCS; 2016-10-18)
PROC: 0DH67UZ Insertion of Feeding Device into Stomach, Via Natural or Artificial Opening (ICD-10-PCS; 2016-10-18)
PROC: 5A12012 Performance of Cardiac Output, Single, Manual (ICD-10-PCS; 2016-10-18)
PROC: 0BH17EZ Insertion of Endotracheal Airway into Trachea, Via Natural or Artificial Opening (ICD-10-PCS; 2016-10-18)
PROC: 3E0G76Z Introduction of Nutritional Substance into Upper GI, Via Natural or Artificial Opening (ICD-10-PCS; 2016-10-18)
PROC: 02HV33Z Insertion of Infusion Device into Superior Vena Cava, Percutaneous Approach (ICD-10-PCS; 2016-10-23)
PROC: 02HV33Z Insertion of Infusion Device into Superior Vena Cava, Percutaneous Approach (ICD-10-PCS; 2016-11-05)
PROC: B544ZZA Ultrasonography of Left Jugular Veins, Guidance (ICD-10-PCS; 2016-11-05)
PROC: 5A1D60Z (ICD-10-PCS; 2016-11-05)
PROC: 0B110F4 Bypass Trachea to Cutaneous with Tracheostomy Device, Open Approach (ICD-10-PCS; principal; 2016-11-05 11:48)
DX: A41.9 Sepsis, unspecified organism (principal); I46.9 Cardiac arrest, cause unspecified; N17.0 Acute kidney failure with tubular necrosis; R65.21 Severe sepsis with septic shock; J69.0 Pneumonitis due to inhalation of food and vomit; J96.21 Acute and chronic respiratory failure with hypoxia; G62.81 Critical illness polyneuropathy; D74.8 Other methemoglobinemias; E11.22 Type 2 diabetes mellitus with diabetic chronic kidney disease; J96.22 Acute and chronic respiratory failure with hypercapnia; G93.1 Anoxic brain damage, not elsewhere classified; J44.0 Chronic obstructive pulmonary disease with (acute) lower respiratory infection; L03.314 Cellulitis of groin; B37.49 Other urogenital candidiasis; E87.0 Hyperosmolality and hypernatremia; E66.2 Morbid (severe) obesity with alveolar hypoventilation; Z68.41 Body mass index [BMI] 40.0-44.9, adult; I05.9 Rheumatic mitral valve disease, unspecified; T43.621A Poisoning by amphetamines, accidental (unintentional), initial encounter; F15.10 Other stimulant abuse, uncomplicated; B37.2 Candidiasis of skin and nail; E78.5 Hyperlipidemia, unspecified; H40.9 Unspecified glaucoma; M10.9 Gout, unspecified; I12.9 Hypertensive chronic kidney disease with stage 1 through stage 4 chronic kidney disease, or unspecified chronic kidney disease; N18.9 Chronic kidney disease, unspecified; Z79.899 Other long term (current) drug therapy; Z79.84 Long term (current) use of oral hypoglycemic drugs; Z79.4 Long term (current) use of insulin; Z87.891 Personal history of nicotine dependence; Z71.6 Tobacco abuse counseling; Z82.49 Family history of ischemic heart disease and other diseases of the circulatory system; Z83.3 Family history of diabetes mellitus; E11.40 Type 2 diabetes mellitus with diabetic neuropathy, unspecified; D64.9 Anemia, unspecified; E87.6 Hypokalemia; E83.52 Hypercalcemia; H05.231 Hemorrhage of right orbit
CPT/HCPCS: 31500; 36415; 36569; 51702; 70450; 71010; 74000; 76000; 76770; 80048; 80053; 80069; 80074; 80202; 81001; 82550; 82553; 82570; 82805; 82948; 83605; 83735; 83935; 84100; 84300; 84443; 84484; 85025; 85027; 85610; 85730; 86611; 86622; 86638; 86713; 87040; 87070; 87088; 87205; 89220; 92950; 93005; 93010; 93306; 94002; 94003; 94640; 94660; 94762; 94799; 96365; C1750; C1769; C9113; G0477; G0480; J0131; J0171; J0282; J0330; J0461; J0692; J0696; J1450; J1644; J1650; J1815; J1940; J2250; J2270; J2543; J3370; J3475; J3480; J7030; J7040; J7050; J7070; J7120; P9047; S0077; 97001-GP; S0164